=== PATIENT | female | born 1945 | race Two or more races ===

== ENCOUNTER 2020-06-20 10:44 | Emergency (ER) | payer MEDICARE, SELFPAY ==
[2020-06-20 11:20] VITALS: PULSE 87; RESP 14; TEMP 36.9; O2SAT 95; BMI 30.2
--- NOTE | 2020-06-20 12:23 | PC.NURSE ---
patient a&ox3, pt states she had neck and back pain yesterday, denies injury and denies current pain, she stated it was a burning pain when she had it and she took tylenol. patient neuro intact-and has equal/normal strength in bilateral upper and lower extremities, vss, will continue to monitor.
--- NOTE | 2020-06-20 12:46 | ED_ITS ---
HPI - General Adult General Chief complaint: Back Pain/Injury Stated complaint: upper back pain, URI Time Seen by Provider: 06/20/20 12:43 Source: patient Mode of arrival: ambulatory Limitations: no limitations History of Present Illness HPI narrative: pleasant 75-year-old primarily Citizen Of [place]-speaking female with hi story of diabetes, hypertension, hyperlipidemia, osteoarthritis, left breast CA status post lumpectomy presents ambulatory via triage with complaint of states for the past 2 days has had of mild rhinorrhea/ congestion in the sinuses and yesterday developed muscle ache in the upper back and mild cough. States her cough is not very bothersome only mild yesterday and today not much. No chest pain or shortness of breath. States muscle aches all over. No fever. She does report that her significant other at home with similar symptoms. No recent travel. additionally she does report that she has lost taste in her mouth for similar duration of time. Onset (ago): day(s) (3 days ) Location: back Severity: mild Pain Consistency: constant Associated symptoms: denies other symptoms Treatments prior to arrival: none Related Data Allergies Allergy/AdvReac Type Severity Reaction Status Date / Time penicillin G [Penicillin G] Allergy Mild RASH Verified 06/20/20 14:32 penicillin V Allergy Unknown rash, Verified 01/16/19 00:00 swelling Review of Systems Review of Systems: Constitutional: No Weight loss, No Fever, + Chills, No Night Sweats, No Fatigue, No Malaise, + Muscle aches in upper back ENT/Mouth: No Hearing loss, No Ear Pain, + Nasal Congestion, + Sinus Pain, No Hoarseness, No sore throat, + Rhinorrhea, No Swallowing Difficulty Eyes: No Eye Pain, No Swelling, No Redness, No Foreign Body, No Discharge, No Vision Changes Cardiovascular: No Chest Pain, No SOB, No Dyspnea on Exertion, No Orthopnea, No Edema, No Palpitations Respiratory: No Cough, No Sputum, No Wheezing, No Smoke Exposure, No Dyspnea Gastrointestinal: No Nausea, No Vomiting, No Diarrhea, No Constipation, No a bdominal Pain, No Hematochezia, No Melena Genitourinary: no irregular bleeding, No Dysuria, No Urinary Frequency, No Hematuria, No Urinary Incontinence, No Urgency, No Flank Pain, No Urinary Flow Changes, No Hesitancy Musculoskeletal: No joint pain, No Myalgias, No Joint Swelling Skin: No Skin Lesions, No rash Neuro: No Weakness, No Numbness, No Paresthesias, No Loss of Consciousness, No Dizziness, No Headache Psych: No Anxiety/Panic, No Depression, No SI/HI/AH/VH, No Social Issues Heme/Lymph: No Bruising, No Bleeding,No Lymphadenopathy Endocrine: No Polyuria, No Polydipsia, No Temperature Intolerance Yes all other systems are reviewed and are negative [facility] Past Medical History Attestation statement: The following information was validated with the patient. Social History Social History Alcohol intake: never Smoking Status: Never smoker Use of substances other than those prescribed or required for medical reasons: No Advance Directives: No Advance Directives Information Provided: Yes Physical Exam Vital Signs: Vital Signs: Vital Signs Temp Pulse Resp BP Pulse Ox 06/20/20 15:17 103 H 18 06/20/20 14:34 98.9 F 92 18 117/60 94 06/20/20 11:20 98.4 F 87 14 95 Body Mass Index 30.2 Reviewed Const: General: cooperative and healthy appearing; No acute distress or i ntoxicated appearing Nutritional Appearance: average body habitus Orientation/consciousness: patient oriented x3 HENMT: Head: Yes normal to inspection Ears: hearing grossly normal bilaterally Eyes: General: appearance normal, both eyes and all related structures Visual Marquez: normal visual marquez by confrontation Neck: Neck: Yes normal visual inspection, No positive Brudzinski's sign, No positive Kernig's sign and No tender Thyroid: Thyroid normal Chest: Chest palpation & inspection: normal inspection of the chest Resp: Effort & Inspection: normal respiratory effort Cardio: Jugular venous distension: no JVD GI: Inspection: Yes normal to inspection Percussion: Yes normal to percussi on Auscultation: normal bowel sounds : General: Yes no CVA tenderness Back/Spine/Pelvis: Back: no CVA tenderness Skin: General skin exam: no rashes or lesions noted Neuro: General: patient oriented x3 Extrem: General: Yes normal to inspection Course Course Course Narrative: patient resting comfortably. In no acute distress. Hemodynamically stable. Heart rate in the 80s. Normal sinus rhythm no ectopy. Oxygen rate 96-97% ra. positive COVID, chest x-ray shows small ground-glass [place] subpleural right lateral base. Linear scar versus disc atelectasis santiago bpleural left lateral base. labs does not show any leukocytosis, and electrolytes essentially at baseline. Given dose of IV Decadron here. Findings /rhodes reviewed. Will discharge home, educated on home care will purchase a pulse oximeter of clear return instructions provided. She is ambulatory status with gait without shortness of breath. Will follow CDC guidelines. Patient stable for discharge. Medical Decision Making Lab Data Result diagrams: 06/20/20 13:41 06/20/20 13:44 Labs: Lab Results 06/20/20 06/20/20 06/20/20 Range/Units 13:22 13:22 13:22 WBC (4.8-10.8) X10*3/uL RBC (4.20-5.50) X10*6/uL Hgb (12.0-16.0) g/dl Hct (37-47) % MCV (80-98) fL MCH (27.0-33.0) pg MCHC (31.0-35.0) g/dl RDW (11.0-16.0) % Plt Count (160-400) X10*3/uL MPV (9.4-12.3) fL Immature Gran % (Auto) (0.0-0.4) % Neut % (Auto) (45-73) % Lymph % (Auto) (20-40) % [place] % (Auto) (2-11) % Eos % (Auto) (0-4) % Baso % (Auto) (0-2) % Lymph # (Auto) (1.2-4.9) X10*3/uL [place] # (Auto) (0.1-1.2) X10*3/uL Eos # (Auto) (0.0-0.4) X10*3/uL Baso # (Auto) (0.0-0.2) X10*3/uL Abs Immat Gran (auto) (0.00-0.03) X10*3/uL Absolute Neuts (auto) (2.0-8.3) X10*3/uL Absolute Nucleated RBC (0.0-0.012) X10*3/uL Nucleated RBC % (auto) (0.0-0.2) /100WBC Sodium (135-145) mmol/L Potassium (3.3-5.1) mmol/l Chloride (96-108) mmol/L Carbon Dioxide (22-29) mmol/L Anion Gap (12-20) BUN (9-16) mg/dL Creatinine (0.5-1.4) mg/dL Estim Creat Clear Calc Estimated GFR Random Glucose (60-115) mg/dL Calcium (8.4-10.2) mg/dL Total Bilirubin (0.0-1.0) mg/dL Direct Bilirubin (0.0-0.5) mg/dL AST (5-31) U/L ALT (0-31) U/L Alkaline Phosphatase (39-117) U/L Total Protein (6.5-8.0) g/dL Albumin (3.5-5.0) g/dL Urine Color YELLOW Urine Appearance CLEAR Urine pH 5.5 (5.0-8.0) Ur Specific [place] 1.015 (1.005-1.025) Urine Protein NEG (NEG-TRACE) MG/DL Urine Glucose (UA) >=1000 H (NEG) MG/DL Urine Ketones 15 (NEG) MG/DL Urine Blood NEG (NEG) Urine Nitrite NEG (NEG) Ur Leukocyte Esterase NEG (NEG) Urine RBC 0 (0) /HPF Urine WBC 0-2 (0-4) /HPF Ur Squamous Epith Cells 1+ /LPF Urine Bacteria NONE /LPF Coronavirus (PCR) POSITIVE A (Negative) Influenza Type A (PCR) NEGATIVE (Negative) Influenza Type B (PCR) NEGATIVE (Negative) Influenza A & B Note See Note RSV RNA Qual (PCR) NEGATIVE (Negative) 06/20/20 06/20/20 Range/Units 13:41 13:44 WBC 6.1 (4.8-10.8) X10*3/uL RBC 4.84 (4.20-5.50) X10*6/uL Hgb 13.5 (12.0-16.0) g/dl Hct 40.9 (37-47) % MCV 84.5 (80-98) fL MCH 27.9 (27.0-33.0) pg MCHC 33.0 (31.0-35.0) g/dl RDW 13.5 (11.0-16.0) % Plt Count 158 L (160-400) X10*3/uL MPV 12.0 (9.4-12.3) fL Immature Gran % (Auto) 0.3 (0.0-0.4) % Neut % (Auto) 56.4 (45-73) % Lymph % (Auto) 35.5 (20-40) % [place] % (Auto) 7.4 (2-11) % Eos % (Auto) 0.2 (0-4) % Baso % (Auto) 0.2 (0-2) % Lymph # (Auto) 2.2 (1.2-4.9) X10*3/uL [place] # (Auto) 0.5 (0.1-1.2) X10*3/uL Eos # (Auto) 0.0 (0.0-0.4) X10*3/uL Baso # (Auto) 0.0 (0.0-0.2) X10*3/uL Abs Immat Gran (auto) 0.02 (0.00-0.03) X10*3/uL Absolute Neuts (auto) 3.5 (2.0-8.3) X10*3/uL Absolute Nucleated RBC 0.000 (0.0-0.012) X10*3/uL Nucleated RBC % (auto) 0.0 (0.0-0.2) /100WBC Sodium 139 (135-145) mmol/L Potassium 3.3 (3.3-5.1) mmol/l Chloride 96 (96-108) mmol/L Carbon Dioxide 25 (22-29) mmol/L Anion Gap 21 H (12-20) BUN 17 H (9-16) mg/dL Creatinine 0.67 (0.5-1.4) mg/dL Estim Creat Clear Calc 40.9 Estimated GFR > 60 Random Glucose 133 H (60-115) mg/dL Calcium 9.8 (8.4-10.2) mg/dL Total Bilirubin 0.5 (0.0-1.0) mg/dL Direct Bilirubin 0.2 (0.0-0.5) mg/dL AST 150 H (5-31) U/L ALT 141 H (0-31) U/L Alkaline Phosphatase 44 (39-117) U/L Total Protein 7.7 (6.5-8.0) g/dL Albumin 4.1 (3.5-5.0) g/dL Urine Color Urine Appearance Urine pH (5.0-8.0) Ur Specific [place] (1.005-1.025) Urine Protein (NEG-TRACE) MG/DL Urine Glucose (UA) (NEG) MG/DL Urine Ketones (NEG) MG/DL Urine Blood (NEG) Urine Nitrite (NEG) Ur Leukocyte Esterase (NEG) Urine RBC (0) /HPF Urine WBC (0-4) /HPF Ur Squamous Epith Cells /LPF Urine Bacteria /LPF Coronavirus (PCR) (Negative) Influenza Type A (PCR) (Negative) Influenza Type B (PCR) (Negative) Influenza A & B Note RSV RNA Qual (PCR) (Negative) Imaging Data Chest x-ray: Radiologist's impression: Gosia Collier 75 F 1945 [place] [id number] XRay Report Signed Patient: Gosia CollierMR#: [id number] : [id number]:[id number] Age/Sex: 75 / FADM Date: 06/20/20 Loc: .ED Attending Dr: Ordering Physician: Herbert Amaya NP Date of Service: 06/20/20 Procedure(s): XR chest 1V Accession Number(s): [id number] cc: Herbert Amaya NP~ EXAMINATION: XR CHEST CLINICAL INFORMATION: Weakness COMPARISON: Chest radiographs 10/13/2017, 12/05/2012 TECHNIQUE: Portable upright AP view of the chest was obtained. FINDINGS: There is subtle groundglass opacity right lateral base. There is linear scar versus disc atelectasis subpleural left lateral base. The lungs are otherwise clear. There is no lobar or segmental airspace consolidation or effusion. The heart is normal within normal size. The hilar and mediastinal contours and bony structures are unremarkable. There is loss of height midthoracic vertebral body similar to prior study 2018. IMPRESSION: 1. Small groundglass opacity subpleural right lateral base. 2. Linear scar versus disc atelectasis subpleural left lateral base. Dictated By:MICHEL GORDON MD Signed By:<Electronically signed by MICHEL GORDON MD in OV>06/20/20 1332 DD/ 1245 TD/TT: Mechanical Fitter: MARIE Discharge Plan Discharge Clinical Impression: COVID-19 Patient Disposition: Home, Self-Care Instructions: COVID-19 (Coronavirus Disease 2019) (ED) Additional Instructions: Your chest x-ray showed findings consistent with COVID-19 and her COVID-19 test was positive Your blood work otherwise was okay You were given a dose of IV steroids here Your vital signs are otherwise stable Please return to emergency room if any concerns or worsening symptoms including chest pain, shortness of breath, fever or any concerning symptoms. monitor oxygen level on a home pulse oximeter Follow the CDC guidelines of self-isolation and social distancing Fourteen days. Wear mask Drink plenty of fluids Schedule a PHONE VISIT follow-up with her primary care doctor in the next 3 to 4 days. Thank you
[2020-06-20 13:37] LABS: Glucose Urine UA >=1000 MG/DL (NEG); Leukocyte Esterase Urine NEG (NEG); Nitrite Urine NEG (NEG); PH 5.5 (5.0-8.0); Specific Gravity - Urine 1.015 (1.005-1.025); Urine Blood NEG (NEG); Urine Ketones 15 MG/DL (NEG); Urine Protein NEG (NEG-TRACE)
[2020-06-20 13:42] LABS: Appearance Urine CLEAR; Color Urine YELLOW
[2020-06-20 13:46] LABS: MANUAL DIFF FLAG NO
--- NOTE | 2020-06-20 13:47 | PC.NURSE ---
patient a&ox3, pt ambulated independently to bathroom, urine obtained, flu/covid obtained, iv inserted, labs drawn, cxr performed, will continue to monitor.
[2020-06-20 13:50] LABS: RBC Urine 0 /HPF (0); Squamous Epithelial Cell Urine 1+ /LPF; WBC Urine 0-2 /HPF (0-4)
[2020-06-20 13:53] LABS: Basophils Percent Auto 0.2 % (0-2); Eosinophils Percent Auto 0.2 % (0-4); Hematocrit 40.9 % (37-47); Hemoglobin 13.5 g/dl (12.0-16.0); Imm Gran Abs Auto 0.02 X10*3/uL (0.00-0.03); Imm Gran Pct Auto 0.3 % (0.0-0.4); Lymphocytes Absolute Auto 2.2 X10*3/uL (1.2-4.9); Lymphocytes Percent Auto 35.5 % (20-40); Mean Corpuscular Hemoglobin 27.9 pg (27.0-33.0); Mean Corpuscular Volume 84.5 fL (80-98); Monocytes Absolute Auto 0.5 X10*3/uL (0.1-1.2); Monocytes Percent Auto 7.4 % (2-11); Neutrophils Absolute Auto 3.5 X10*3/uL (2.0-8.3); Neutrophils Percent Auto 56.4 % (45-73); Platelet Count 158 X10*3/uL (160-400); Red Blood Count 4.84 X10*6/uL (4.20-5.50); Red Cell Distribution Width 13.5 % (11.0-16.0); White Blood Count 6.1 X10*3/uL (4.8-10.8)
[2020-06-20 14:12] LABS: Alanine Aminotransferase 141 U/L (0-31); Albumin Level 4.1 g/dL (3.5-5.0); Alkaline Phosphatase 44 U/L (39-117); Anion Gap 21 (12-20); Aspartate Amino Transferase 150 U/L (5-31); Bilirubin Direct 0.2 mg/dL (0.0-0.5); Bilirubin Total 0.5 mg/dL (0.0-1.0); Blood Urea Nitrogen 17 mg/dL (9-16); Calcium 9.8 mg/dL (8.4-10.2); Carbon Dioxide 25 mmol/L (22-29); Chloride 96 mmol/L (96-108); Creatinine Clr Calc Pharmacy 40.9; Estimated Glomerular Filt Rate > 60; Glucose Random 133 mg/dL (60-115); Potassium 3.3 mmol/l (3.3-5.1); Sodium 139 mmol/L (135-145); Total Protein 7.7 g/dL (6.5-8.0)
[2020-06-20 14:34] VITALS: BP 117/60; PULSE 92; RESP 18; TEMP 37.2; O2SAT 94
[2020-06-20 14:51] LABS: SARS COV2 PCR INHOUSE POSITIVE (Negative)
[2020-06-20 15:01] LABS: Influenza A PCR NEGATIVE (Negative); Influenza B PCR NEGATIVE (Negative)
[2020-06-20 15:02] LABS: Resp Syncy Virus RNA Qual PCR NEGATIVE (Negative)
[2020-06-20] MEDS: dexAMETHasone sod phosphate 4 MG/ML VIAL IVPUSH (15:08)
[2020-06-20 15:17] VITALS: PULSE 103; RESP 18
--- NOTE | 2020-06-20 15:18 | PC.NURSE ---
patient ambulated per providers request, pts o2 sat decreased to 91%, no sob noted while ambulating, hr increased to 103, pt currently back in bed hr has reduced to 94 and o2 sat increased to 93%.
--- NOTE | 2020-06-20 16:31 | PC.NURSE ---
called for model dresser to discharge patient, he will come to ed when he is done on imc
== END 2020-06-20 16:50 | disposition home or self-care (01) ==
PROVIDERS: Nurse Practitioner Primary Care; Emergency Provider Emergency Medicine; PCP Internal Medicine Geriatric Medicine
DX: U07.1 COVID-19 (principal); I10 Essential (primary) hypertension; E11.9 Type 2 diabetes mellitus without complications; Z79.899 Other long term (current) drug therapy
CPT/HCPCS: 36415; 71045; 80048; 80076; 81001; 85025; 87631; 87635; 96374; 99284; J1100

== ENCOUNTER → 2020-11-10 14:46 | Outpatient (BNV) | payer MEDICARE, SELFPAY | PROVIDERS: PCP Internal Medicine Geriatric Medicine; Visit Provider Internal Medicine | DX: C50.912 Malignant neoplasm of unspecified site of left female breast (principal) | CPT/HCPCS: 99213; 99214; G2211 ==

== ENCOUNTER 2020-12-23 08:15 | Outpatient (REF) | payer MEDICARE, SELFPAY ==
[2020-12-23 08:48] LABS: COVID-19 Test Negative (Negative)
== END 2020-12-23 08:16 | disposition home or self-care (01) ==
LOC: HO.LAB 08:15
PROVIDERS: Visit Provider Internal Medicine
DX: Z20.822 Contact with and (suspected) exposure to COVID-19 (principal)
CPT/HCPCS: 36415; 87635; C9803

== ENCOUNTER 2021-04-21 09:54 | Outpatient (REF) | payer MEDICARE, SELFPAY ==
--- NOTE | ~2021-04-21 | MM_ITS ---
EXAMINATION: MM SCREENING DIGITAL BREAST TOMOSYNTHESIS, BILATERAL CLINICAL INFORMATION: Screening. Asymptomatic. Left lumpectomy for breast cancer 2006, left lumpectomy for DCIS 2016. COMPARISON: Mammography: 04/15/2020, 06/04/2019, 06/01/2018, 05/30/2017 TECHNIQUE: Digital breast tomosynthesis is performed in both the craniocaudal and mediolateral oblique views along with computer-aided detection (CAD). Synthesized 2D images are generated from the tomosynthesis. Additional exaggerated left CC view is provided. FINDINGS: There are scattered areas of fibroglandular density (ACR BI-RADS breast composition Category b). Left breast post therapy changes with reduced breast size and scarring central breast in the anterior upper outer quadrant are stable. Neither breast shows interval mass or architectural abnormality or abnormal calcifications. Again, there is biopsy clip marker mid medial right breast. Scattered bilateral vascular and benign coarse calcifications again seen. There is a group of coarse calcifications anterior medial left breast and dystrophic benign calcification in the anterior left scar. No significant changes. MM/MM tomosynthesis screening BI IMPRESSION: No mammographic evidence of malignancy. Post therapy changes left breast. ASSESSMENT: BI-RADS 2: Benign RECOMMENDATION: Routine annual mammography screening. This patient's information was entered into a reminder system with a target due date for their next mammogram.
== END 2021-04-21 09:55 | disposition home or self-care (01) ==
LOC: HO.MAMMO 09:54
PROVIDERS: Visit Provider Internal Medicine
DX: Z12.31 Encounter for screening mammogram for malignant neoplasm of breast (principal)
CPT/HCPCS: 77063; 77067

== ENCOUNTER 2021-05-11 10:11 | Emergency (ER) | payer MEDICARE, SELFPAY ==
--- NOTE | ~2021-05-11 | XR_ITS ---
EXAMINATION: XR CHEST CLINICAL INFORMATION: Cough COMPARISON: Previous chest x-ray June 2020 TECHNIQUE: Frontal view of the chest was obtained. FINDINGS: No significant abnormality is noted involving the heart, lungs, mediastinum, bony thorax or soft tissues. XR/XR chest 1V IMPRESSION: Unremarkable examination.
[2021-05-11 11:20] VITALS: BP 196/90; PULSE 88; RESP 20; TEMP 36.7; O2SAT 98; BMI 29.1
[2021-05-11 12:15] VITALS: BP 195/101; PULSE 79; RESP 18; O2SAT 97
--- NOTE | 2021-05-11 13:01 | ED_ITS ---
HPI - General Adult General Chief complaint: General Medical Stated complaint: SORE THROAT Time Seen by Provider: 05/11/21 12:13 Source: patient Mode of arrival: ambulatory History of Present Illness HPI narrative: 76-year-old female with a past medical history of diabetes, hypertension, osteoporosis, presenting to the ED complaining dry cough since yesterday with 1 hour of lightheadedness yesterday, resolved at present. Denies fever, chills, CP, SOB, abdominal pain, nausea, vomiting, recent travel, LE edema, sick contacts Related Data Home Medications Medication Instructions Recorded Confirmed acetaminophen 500 mg tablet 500 mg PO 10/07/20 albuterol sulfate 3 INHALATION Q4-6H PRN 10/07/20 alendronate 70 mg tablet 70 mg PO QWEEK 10/07/20 10/07/20 calcium carbonate 600 mg (1,500 1 tab PO BID 10/07/20 10/07/20 mg)-vitamin D3 400 unit tablet fluticasone 100 mcg-salmeterol 50 INHALATION 10/07/20 mcg/dose blistr powdr for inhalation (Advair Diskus) glipizide 2.5 mg tablet, extended 2.5 mg PO DAILY 10/07/20 10/07/20 release 24 hr hydrochlorothiazide 25 mg tablet 25 mg PO DAILY 10/07/20 10/07/20 loratadine 10 mg tablet 10 mg PO DAILY 10/07/20 10/07/20 losartan 25 mg tablet 25 mg PO QAM 10/07/20 10/07/20 metformin 750 mg tablet,extended 750 mg PO BID 10/07/20 10/07/20 release 24 hr omeprazole 20 mg capsule,delayed 20 mg PO DAILY 10/07/20 10/07/20 release simvastatin 10 mg tablet 10 mg PO 10/07/20 Previous Rx's Medication Instructions Recorded letrozole 2.5 mg tablet 2.5 mg PO DAILY #30 tab 04/08/21 benzonatate 100 mg capsule 100 mg PO TID PRN #14 cap 05/11/21 (Debby Prather) fluticasone propionate 50 2 spray INTRANASAL DAILY #16 g 05/11/21 mcg/actuation nasal spray,suspension (Flonase Allergy Relief) Allergies Allergy/AdvReac Type Severity Reaction Status Date / Time penicillin G [Penicillin G] Allergy Mild RASH Verified 06/20/20 14:32 penicillin V Allergy Unknown rash, Verified 01/16/19 00:00 swelling Review of Systems Review of Systems: Constitutional: No Fever, No Chills ENT/Mouth: No Ear Pain, No sore throat, No Rhinorrhea Cardiovascular: No Chest Pain, No SOB, No LE edema Respiratory: + Cough, No Sputum, No Wheezing Gastrointestinal: No Nausea, No Vomiting, No Abdominal pain Musculoskeletal: No joint pain, No Myalgias, No Joint Swelling Skin: No Skin Lesions, No rash Neuro: No Weakness, No Numbness, No Paresthesias, + lightheadedness Yes all other systems are reviewed and are negative [facility] Past Medical History Attestation statement: The following information was validated with the patient. Medical History (Updated 05/11/21 @ 15:14 by FABIANA Gil) Cancer of left breast Diabetes History of blood clot in brain Hypertension Osteoporosis Surgical History (Updated 11/10/20 @ 15:14 by Diane Beckett MD) History of right breast biopsy History of tubal ligation Family History Family History (Updated 10/07/20 @ 08:57 by Stephanie Hurt RN) Mother Coronary artery disease Father Throat cancer Social History Social History (Updated 11/10/20 @ 15:04 by Jenny Yang) Alcohol intake: never Advance Directives: No Advance Directives Information Provided: No Physical Exam Vital Signs: Vital Signs: Last Vital Signs Temp 98.0 F 05/11/21 11:20 Pulse 79 05/11/21 12:15 Resp 18 05/11/21 12:15 BP 197/92 H 05/11/21 15:26 Pulse Ox 97 05/11/21 12:15 Body Mass Index 29.1 Const: General: cooperative and healthy appearing Orientatio n/consciousness: patient oriented x3 Limitations: no limitations HENMT: Head: Yes normal to inspection Ears: hearing grossly normal bilaterally General nose exam: Normal external nose present Face and sinus: Yes normal facial exam Eyes: General: appearance normal, both eyes and all related structures EOM: EOMs intact bilaterally Neck: Neck: Yes normal visual inspection Resp: Effort & Inspection: normal respiratory effort Auscultation: clear to auscultation bilaterally, no rales, no rhonchi and no wheezes Cardio: Rate: regular rate Heart sounds: S1 normal heart sound present and S2 normal heart sound present Skin: Rashes: no rashes Wounds: no wounds Neuro: General: patient oriented x3 Gait exam (Neuro): Normal gait present Extrem: General: Yes normal to inspection, Yes no pedal edema and Yes no calf tenderness Course Course Course Narrative: -COVID-19/influenza/RSV negative. XR chest 1V IMPRESSION: Unremarkable examination. >> results discussed with patient with interpreter translator including worrisome signs and symptoms and strict return precautions. Medical Decision Making MDM Narrative Medical decision making narrative: 76-year-old female with a past medical history of diabetes, hypertension, osteoporosis, presenting to the ED complaining dry cough since yesterday with 1 hour of lightheadedness yesterday, resolved at present. On exam hypertensive, will repeat, NAD/nontoxic, no pedal edema/calf ttp. Patient denies lightheadedness at present. Concern for viral syndrome/COVID-19. No concern for PE/ACS Plan: CXR, COVID-19 testing Lab Data Labs: Lab Results 05/11/21 Range/Units 12:56 Coronavirus (PCR) NEGATIVE (Negative) Influenza Type A (PCR) NEGATIVE (Negative) Influenza Type B (PCR) NEGATIVE (Negative) RSV RNA Qual (PCR) NEGATIVE (Negative) Discharge Plan Discharge Clinical Impression: Acute viral syndrome Patient Disposition: Home, Self-Care Instructions: Viral Syndrome (ED) Additional Instructions: Your x-ray was unremarkable You tested negative for COVID-19, the flu, and RSV Please follow-up with your doctor Debby Prather for cough, take as needed Flonase is a nasal decongestant spray If her symptoms persist or worsen, you have constant worsening chest pain, shortness breath, fever, please return to the ED Tu radiograf?a no tuvo nada especial Result? negativo para COVID-19, gripe y RSV Michael un seguimiento con santiago m?dico. Tessalon Crescencio para la tos, susanna seg?n sea necesario Flonase es un aerosol descongestionante nasal Si valeria s?ntomas persisten o empeoran, tiene un dolor en el pecho que empeora constantemente, dificultad para respirar, fiebre, por favor regrese al servicio de urgencias. Prescriptions: New benzonatate [Tessalon Perles] 100 mg capsule 100 mg PO TID PRN (Reason: cough) Qty: 14 RF: 0 fluticasone propionate [Flonase Allergy Relief] 50 mcg/actuation spray,suspension 2 spray intranasal DAILY Qty: 16 RF: 0 No Action alendronate 70 mg tablet 70 mg PO QWEEK RF: 0 acetaminophen 500 mg tablet 500 mg PO RF: 0 fluticasone propion-salmeterol [Advair Diskus] 100-50 mcg/dose blister with device inhalation RF: 0 calcium carbonate-vitamin D3 600 mg(1,500mg) -400 unit tablet 1 tab PO BID RF: 0 losartan 25 mg tablet 25 mg PO QAM RF: 0 omeprazole 20 mg capsule,delayed release(DR/EC) 20 mg PO DAILY RF: 0 hydrochlorothiazide 25 mg tablet 25 mg PO DAILY RF: 0 loratadine 10 mg tablet 10 mg PO DAILY RF: 0 metformin 750 mg tablet extended release 24 hr 750 mg PO BID RF: 0 albuterol sulfate 2.5 mg /3 mL (0.083 %) solution for nebulization 3 inhalation Q4-6H PRN (Reason: Respiratory Distress) RF: 0 simvastatin 10 mg tablet 10 mg PO RF: 0 glipizide 2.5 mg tablet extended release 24hr 2.5 mg PO DAILY RF: 0 letrozole 2.5 mg Tablet 2.5 mg PO DAILY Qty: 30 RF: 3 Referrals: Tristin Fregoso MD [Primary Care Provider] - 2 days Print Language: Malawian
[2021-05-11 15:01] LABS: Influenza A PCR NEGATIVE (Negative); Influenza B PCR NEGATIVE (Negative); Resp Syncy Virus RNA Qual PCR NEGATIVE (Negative); SARS COV2 PCR INHOUSE NEGATIVE (Negative)
[2021-05-11 15:26] VITALS: BP 197/92
== END 2021-05-11 15:31 | disposition home or self-care (01) ==
PROVIDERS: Physician Assistant; Emergency Provider Emergency Medicine; PCP Internal Medicine Geriatric Medicine
DX: B34.9 Viral infection, unspecified (principal); Z20.822 Contact with and (suspected) exposure to COVID-19; E11.9 Type 2 diabetes mellitus without complications; I10 Essential (primary) hypertension; Z79.899 Other long term (current) drug therapy; Z79.02 Long term (current) use of antithrombotics/antiplatelets
CPT/HCPCS: 0241U; 36415; 71045; 99283

== ENCOUNTER 2021-12-03 09:34 | Emergency (ER) | payer MEDICARE, SELFPAY ==
--- NOTE | ~2021-12-03 | XR_ITS ---
EXAMINATION: XR RIBS, RIGHT CLINICAL INFORMATION: Right posterior rib pain COMPARISON: Chest x-ray 05/11/2021 TECHNIQUE: 3 views of the right ribs were obtained. FINDINGS: Lungs are clear. No consolidation, pneumothorax, or pleural effusion. The cardiomediastinal silhouette and pulmonary vasculature are normal. Osseous structures are unremarkable. Multiple views of right ribs reveal no visible fracture or bony abnormality. XR/XR ribs RT min 3V w CXR1V IMPRESSION: Unremarkable chest exam. Unremarkable right rib exam.
[2021-12-03 09:36] VITALS: BP 191/77; PULSE 80; RESP 18; TEMP 36.9; O2SAT 95
--- NOTE | 2021-12-03 09:40 | ECG_ITS ---
Test Reason : htn epigastric pain Blood Pressure : / mmHG Vent. Rate : 080 BPM Atrial Rate : 080 BPM P-R Int : 132 ms QRS Dur : 084 ms QT Int : 402 ms P-R-T Axes : 054 -12 055 degrees QTc Int : 463 ms Normal sinus rhythm Normal ECG When compared with ECG of 24-SEP-2015 14:59, No significant change was found Referred By: Generic ED Physician Electronically Signed By:AVELINO WOODS
[2021-12-03 09:51] VITALS: BP 192/85; PULSE 74; RESP 18; TEMP 36.7; O2SAT 98; BMI 34.4
--- NOTE | 2021-12-03 09:59 | ED.GENADULT ---
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 She reports the pain is sharp and 9/10 in severity. It radiates to the front of her abdomen at times and she gets nauseous. She denies any trauma to the area but reports falling all the time. No chest pain or SOB. She reports a history of similar pain in the past due to arthritis and osteoporosis. No history of rib fractures. She denies any vomiting, diarrhea, fever, chills. MD complaint: right sided back pain Onset (ago): week(s) (1) Location: back Radiation: abdomen Severity: severe Severity scale (1-10): 9 Quality: sharp Pain Consistency: intermittent Relieving factors: medication (ibuprofen and tylenol) Exacerbating factors: movement Associated symptoms: nausea/vomiting Treatments prior to arrival: none Related Data Home Medications Medication Instructions Recorded Confirmed acetaminophen 500 mg tablet 500 mg PO DAILY 10/07/20 09/14/21 albuterol sulfate 2.5 mg INHALATION Q4-6H PRN 10/07/20 09/14/21 alendronate 70 mg tablet 70 mg PO QWEEK 10/07/20 09/14/21 calcium carbonate 600 mg-vitamin 1 tab PO BID 10/07/20 09/14/21 D3 10 mcg (400 unit) tablet fluticasone 100 mcg-salmeterol 50 1 inh INHALATION DAILY 10/07/20 09/14/21 mcg/dose blistr powdr for inhalation (Advair Diskus) glipizide 2.5 mg tablet, extended 2.5 mg PO DAILY 10/07/20 09/14/21 release 24 hr loratadine 10 mg tablet 10 mg PO DAILY 10/07/20 09/14/21 losartan 25 mg tablet 25 mg PO QAM 10/07/20 09/14/21 metformin 750 mg tablet,extended 750 mg PO BID 10/07/20 09/14/21 release 24 hr omeprazole 20 mg capsule,delayed 20 mg PO DAILY 10/07/20 09/14/21 release simvastatin 10 mg tablet 10 mg PO DAILY 10/07/20 09/14/21 metoprolol succinate 100 mg 1 tab PO QAM 09/14/21 09/14/21 tablet,extended release 24 hr Previous Rx's Medication Instructions Recorded fluticasone propionate 50 2 spray INTRANASAL DAILY #16 g 05/11/21 mcg/actuation nasal spray,suspension (Flonase Allergy Relief) letrozole 2.5 mg tablet 2.5 mg PO DAILY #30 tab 08/13/21 Allergies Allergy/AdvReac Type Severity Reaction Status Date / Time penicillin G [Penicillin G] Allergy Mild RASH Verified 09/14/21 13:27 penicillin V Allergy Unknown rash, Verified 09/14/21 13:27 swelling Review of Systems Review of Systems: Constitutional: No Fever, No Chills ENT/Mouth: No sore throat, No Rhinorrhea, No Swallowing Difficulty Eyes: No Eye Pain, No Swelling, No Redness Cardiovascular: No Chest Pain, No SOB, No Orthopnea, No Edema Respiratory: No Cough, No Sputum, No Wheezing, No dyspnea Gastrointestinal: + Nausea, No Vomiting, No Diarrhea, No abdominal Pain, No Hematochezia, No Melena Genitourinary: No Dysuria, No Urinary Frequency, No Hematuria Musculoskeletal: No joint pain, No Myalgias, +Back pain Skin: No Skin Lesions, No rash Neuro: No Weakness, No Numbness, No Dizziness, No Headache Psych: No Anxiety/Panic, No Depression Heme/Lymph: No Bruising, No Lymphadenopathy Endocrine: No Polyuria, No Polydipsia PMFSH Past Medical History Medical History (Updated 12/03/21 @ 12:23 by FABIANA De Luna) Cancer of left breast Diabetes History of blood clot in brain Hypertension Osteoporosis Surgical History History of right breast biopsy History of tubal ligation Family History Family History Mother Coronary artery disease Father Throat cancer Social History Social History (Updated 09/14/21 @ 13:27 by Jenny Yang) Alcohol intake: never Patient Tobacco Use Status: Never used Tobacco Use of substances other than those prescribed or required for medical reasons: No Advance Directives: No Advance Directives Information Provided: Yes Current occupational status: disabled Current occupation: does not work. Current occupational exposures/hazards: No Physical Exam ED Vital Signs: Vital Signs - 24 hr 12/03/21 09:36 12/03/21 09:51 12/03/21 11:30 Temperature 98.4 F 98.0 F Pulse Rate 80 74 71 Respiratory Rate 18 18 16 Blood Pressure 191/77 H 192/85 H 176/66 H Pulse Oximetry 95 98 95 BMI result Body Mass Index 34.4 Appearance: Alert. Oriented X3. No acute distress. Eyes: Pupils equal, round and reactive to light. ENT: Pharynx normal. Neck: Normal inspection. Neck supple. CVS: Normal heart rate and rhythm. Pulses normal. Respiratory: No respiratory distress. Breath sounds normal. Abdomen: Soft and nontender. +BS x4 Back: normal inspection. Right thoracic area with moderate tenderness, +CVA tenderness. normal ROM. Skin: Skin warm and dry. Normal skin color. Normal skin turgor. No rashes. Extremities: No lower extremity edema. Neuro: Oriented X 3. No motor deficit. No sensory deficit. Course Course Course Narrative: 76 y/o female with history of DM, HTN, HLD, OP, OA, breast cancer 2006 presents to the ER with right sided back pain for the last one week, intermittent and worse with movement. No SOB or chest pain. Will check XR ribs given reports of multiple falls as well as EKG, and lab workup. Reevaluation(s) Reevaluation #1: EKG is normal without ischemic changes. Troponin is negative. She is feeling better after Tylenol and Lidoderm patch application. The rest of her lab workup is unremarkable. Her x-rays do not show any broken ribs are pneumonia. Pain is most likely musculoskeletal. Will discharge with recs for motrin, tylenol, OTC lidoderm and follow up with PCP. 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 Medical Decision Making Lab Data Result diagrams: 12/03/21 10:17 12/03/21 10:17 Labs: Lab Results 12/03/21 12/03/21 12/03/21 Range/Units 10:17 10:17 10:17 WBC 8.1 (4.8-10.8) X10*3/uL RBC 4.80 (4.20-5.50) X10*6/uL Hgb 13.7 (12.0-16.0) g/dl Hct 42.4 (37.0-47.0) % MCV 88.3 (80.0-98.0) fL MCH 28.5 (27.0-33.0) pg MCHC 32.3 (31.0-35.0) g/dl RDW 13.1 (11.0-16.0) % Plt Count 233 (160-400) X10*3/uL MPV 11.2 (9.4-12.3) fL Immature Gran % (Auto) 0.2 (0.0-0.4) % Neut % (Auto) 45.8 (45-73) % Lymph % (Auto) 42.7 H (20-40) % Kemper % (Auto) 7.4 (2-11) % Eos % (Auto) 3.3 (0-4) % Baso % (Auto) 0.6 (0-2) % Lymph # (Auto) 3.5 (1.2-4.9) X10*3/uL Kemper # (Auto) 0.6 (0.1-1.2) X10*3/uL Eos # (Auto) 0.3 (0.0-0.4) X10*3/uL Baso # (Auto) 0.1 (0.0-0.2) X10*3/uL Abs Immat Gran (auto) 0.02 (0.00-0.03) X10*3/uL Absolute Neuts (auto) 3.7 (2.0-8.3) x10*3/uL Absolute Nucleated RBC 0.000 (0.0-0.012) X10*3/uL Nucleated RBC % (auto) 0.0 (0.0-0.2) /100WBC Sodium 140 (135-145) mmol/L Potassium 4.3 (3.3-5.1) mmol/L Chloride 101 (96-108) mmol/L Carbon Dioxide 25 (22-29) mmol/L Anion Gap 18 (12-20) BUN 13 (9-16) mg/dL Creatinine 0.67 (0.5-1.4) mg/dL Estim Creat Clear Calc 35.8 Estimated GFR > 60 Random Glucose 197 H (60-115) mg/dL Calcium 10.2 (8.4-10.2) mg/dL Magnesium 2.4 (1.6-2.6) mg/dL Total Bilirubin 0.4 (0.0-1.0) mg/dL Direct Bilirubin 0.2 (0.0-0.5) mg/dL AST 22 (5-31) U/L ALT 29 (0-31) U/L Alkaline Phosphatase 62 (39-117) U/L Troponin I High Sens < 3.5 (<3.5-17.0) ng/L Total Protein 8.2 H (6.5-8.0) g/dL Albumin 4.5 (3.5-5.0) g/dL Urine Color Urine Appearance Urine pH (5.0-8.0) Ur Specific Coden (1.005-1.025) Urine Protein (NEG-TRACE) MG/DL Urine Glucose (UA) (NEG) MG/DL Urine Ketones (NEG) MG/DL Urine Blood (NEG) Urine Nitrite (NEG) Ur Leukocyte Esterase (NEG) Urine RBC (0) /HPF Urine WBC (0-4) /HPF Ur Squamous Epith Cells /LPF Urine Bacteria /LPF 12/03/21 Range/Units 10:17 WBC (4.8-10.8) X10*3/uL RBC (4.20-5.50) X10*6/uL Hgb (12.0-16.0) g/dl Hct (37.0-47.0) % MCV (80.0-98.0) fL MCH (27.0-33.0) pg MCHC (31.0-35.0) g/dl RDW (11.0-16.0) % Plt Count (160-400) X10*3/uL MPV (9.4-12.3) fL Immature Gran % (Auto) (0.0-0.4) % Neut % (Auto) (45-73) % Lymph % (Auto) (20-40) % Kemper % (Auto) (2-11) % Eos % (Auto) (0-4) % Baso % (Auto) (0-2) % Lymph # (Auto) (1.2-4.9) X10*3/uL Kemper # (Auto) (0.1-1.2) X10*3/uL Eos # (Auto) (0.0-0.4) X10*3/uL Baso # (Auto) (0.0-0.2) X10*3/uL Abs Immat Gran (auto) (0.00-0.03) X10*3/uL Absolute Neuts (auto) (2.0-8.3) x10*3/uL Absolute Nucleated RBC (0.0-0.012) X10*3/uL Nucleated RBC % (auto) (0.0-0.2) /100WBC Sodium (135-145) mmol/L Potassium (3.3-5.1) mmol/L Chloride (96-108) mmol/L Carbon Dioxide (22-29) mmol/L Anion Gap (12-20) BUN (9-16) mg/dL Creatinine (0.5-1.4) mg/dL Estim Creat Clear Calc Estimated GFR Random Glucose (60-115) mg/dL Calcium (8.4-10.2) mg/dL Magnesium (1.6-2.6) mg/dL Total Bilirubin (0.0-1.0) mg/dL Direct Bilirubin (0.0-0.5) mg/dL AST (5-31) U/L ALT (0-31) U/L Alkaline Phosphatase (39-117) U/L Troponin I High Sens (<3.5-17.0) ng/L Total Protein (6.5-8.0) g/dL Albumin (3.5-5.0) g/dL Urine Color YELLOW Urine Appearance CLEAR Urine pH 6.5 (5.0-8.0) Ur Specific Coden <= 1.005 (1.005-1.025) Urine Protein TRACE (NEG-TRACE) MG/DL Urine Glucose (UA) >=1000 H (NEG) MG/DL Urine Ketones NEG (NEG) MG/DL Urine Blood NEG (NEG) Urine Nitrite NEG (NEG) Ur Leukocyte Esterase NEG (NEG) Urine RBC 0 (0) /HPF Urine WBC 0 (0-4) /HPF Ur Squamous Epith Cells NONE /LPF Urine Bacteria NONE /LPF ECG Data Attestation: I personally reviewed and interpreted this ECG as follows: Prior ECG tracings: available for review Interpretation: normal sinus rhythm, heart rate 80 beats per minute, normal MT interval, normal QTC, no ST segment elevations or depressions. No change from prior. Discharge Plan Discharge Clinical Impression: Back pain Patient Disposition: Home, Self-Care Instructions: Back Pain (ED) Additional Instructions: Your lab workup today was unremarkable. Your EKG was normal. X-rays of your ribs and chest were normal. Pain is most likely muscular. No bending, lifting or twisting. Use ice several times per day for 20 minutes at a time for the next 48 hours and then change to heat. Take medications as prescribed to help with pain and discomfort. Follow up with your Primary Care Doctor this week. If your pain worsens, if you develop new concerning symptoms call 911 or come back to the ER right away for evaluation. Tu an?lisis de laboratorio de cadenkarine no tuvo nada especial. [place] electrocardiograma fue normal. Las radiograf?as de valeria costillas y t?rax fueron normales. Lo m?s probable es que el dolor sea muscular. Sin doblar, levantar o torcer. Use hielo varias veces al d?a mitali 20 minutos a la vez mitali las pr?ximas 48 horas y luego cambie a calor. [place] los medicamentos seg?n lo prescrito para ayudar con el dolor y la incomodidad. Michael un seguimiento con manzanares m?dico de atenci?n primaria esta semana. Si manzanares dolor empeora, si desarrolla nuevos s?ntomas preocupantes, llame al 911 o regrese a la néstor de emergencias de inmediato para francis evaluaci?n. Prescriptions: No Action fluticasone propionate [Flonase Allergy Relief] 50 mcg/actuation spray,suspension 2 spray intranasal DAILY Qty: 16 0RF Rx Instructions: administer into each nostril alendronate 70 mg tablet 70 mg PO QWEEK 0RF acetaminophen 500 mg tablet 500 mg PO DAILY 0RF fluticasone propion-salmeterol [Advair Diskus] 100-50 mcg/dose blister with device 1 inh inhalation DAILY 0RF calcium carbonate-vitamin D3 600 mg(1,500mg) -400 unit tablet 1 tab PO BID 0RF losartan 25 mg tablet 25 mg PO QAM 0RF omeprazole 20 mg capsule,delayed release(DR/EC) 20 mg PO DAILY 0RF loratadine 10 mg tablet 10 mg PO DAILY 0RF metformin 750 mg tablet extended release 24 hr 750 mg PO BID 0RF albuterol sulfate 2.5 mg /3 mL (0.083 %) solution for nebulization 2.5 mg inhalation Q4-6H PRN (Reason: Respiratory Distress) 0RF simvastatin 10 mg tablet 10 mg PO DAILY 0RF glipizide 2.5 mg tablet extended release 24hr 2.5 mg PO DAILY 0RF letrozole 2.5 mg Tablet 2.5 mg PO DAILY Qty: 30 3RF metoprolol succinate 100 mg tablet extended release 24 hr 1 tab PO QAM 0RF Referrals: Name,MD Tristin [Primary Care Provider] - 2 days (right sided back pain) Interventions: ED Discharge Assessment Last Done: 12/03/21 12:44 Discharge Date/Time: 12/03/21 12:45
[2021-12-03 10:22] LABS: MANUAL DIFF FLAG NO
[2021-12-03 10:24] LABS: Basophils Absolute Auto 0.1 X10*3/uL (0.0-0.2); Basophils Percent Auto 0.6 % (0-2); Eosinophils Absolute Auto 0.3 X10*3/uL (0.0-0.4); Eosinophils Percent Auto 3.3 % (0-4); Hematocrit 42.4 % (37.0-47.0); Hemoglobin 13.7 g/dl (12.0-16.0); Imm Gran Abs Auto 0.02 X10*3/uL (0.00-0.03); Imm Gran Pct Auto 0.2 % (0.0-0.4); Lymphocytes Absolute Auto 3.5 X10*3/uL (1.2-4.9); Lymphocytes Percent Auto 42.7 % (20-40); Mean Corpuscular HGB Conc 32.3 g/dl (31.0-35.0); Mean Corpuscular Hemoglobin 28.5 pg (27.0-33.0); Mean Corpuscular Volume 88.3 fL (80.0-98.0); Mean Platelet Volume 11.2 fL (9.4-12.3); Monocytes Absolute Auto 0.6 X10*3/uL (0.1-1.2); Monocytes Percent Auto 7.4 % (2-11); Neutrophils Absolute Auto 3.7 x10*3/uL (2.0-8.3); Neutrophils Percent Auto 45.8 % (45-73); Platelet Count 233 X10*3/uL (160-400); Red Cell Distribution Width 13.1 % (11.0-16.0); White Blood Count 8.1 X10*3/uL (4.8-10.8)
[2021-12-03 10:27] LABS: Appearance Urine CLEAR; Color Urine YELLOW; Glucose Urine UA >=1000 MG/DL (NEG); Leukocyte Esterase Urine NEG (NEG); Nitrite Urine NEG (NEG); PH 6.5 (5.0-8.0); Specific Gravity - Urine <= 1.005 (1.005-1.025); Urine Blood NEG (NEG); Urine Ketones NEG (NEG); Urine Protein TRACE MG/DL (NEG-TRACE)
[2021-12-03 10:49] LABS: Alanine Aminotransferase 29 U/L (0-31); Albumin Level 4.5 g/dL (3.5-5.0); Alkaline Phosphatase 62 U/L (39-117); Anion Gap 18 (12-20); Aspartate Amino Transferase 22 U/L (5-31); Bilirubin Direct 0.2 mg/dL (0.0-0.5); Bilirubin Total 0.4 mg/dL (0.0-1.0); Blood Urea Nitrogen 13 mg/dL (9-16); Calcium 10.2 mg/dL (8.4-10.2); Carbon Dioxide 25 mmol/L (22-29); Chloride 101 mmol/L (96-108); Creatinine Clr Calc Pharmacy 35.8; Estimated Glomerular Filt Rate > 60; Glucose Random 197 mg/dL (60-115); Magnesium 2.4 mg/dL (1.6-2.6); Potassium 4.3 mmol/L (3.3-5.1); Sodium 140 mmol/L (135-145); Total Protein 8.2 g/dL (6.5-8.0)
[2021-12-03] MEDS: Acetaminophen 325 MG TABLET 975 MG PO (10:49)
[2021-12-03] MEDS: Lidocaine 4 % Patch ADH..PATCH 1 PATCH TRANSDERMA (10:49)
[2021-12-03 10:53] LABS: Troponin-I High Sensitivity < 3.5 ng/L (<3.5-17.0)
[2021-12-03 11:11] LABS: RBC Urine 0 /HPF (0); WBC Urine 0 /HPF (0-4)
[2021-12-03 11:30] VITALS: BP 176/66; PULSE 71; RESP 16; O2SAT 95
--- NOTE | 2021-12-03 12:24 | PC.NURSE ---
pt resting peacefully in the stretcher, denies pain at this time
== END 2021-12-03 12:45 | disposition home or self-care (01) ==
PROVIDERS: Physician Assistant; Emergency Provider Emergency Medicine; PCP Internal Medicine Geriatric Medicine
DX: M54.6 Pain in thoracic spine (principal); E11.9 Type 2 diabetes mellitus without complications; I10 Essential (primary) hypertension; E78.5 Hyperlipidemia, unspecified; Z91.81 History of falling; Z79.02 Long term (current) use of antithrombotics/antiplatelets; Z79.899 Other long term (current) drug therapy
CPT/HCPCS: 36415; 71101; 80048; 80076; 81001; 83735; 84484; 85025; 93005; 99283; 99284

== ENCOUNTER 2022-04-22 10:21 | Outpatient (REF) | payer MEDICARE, SELFPAY ==
--- NOTE | ~2022-04-22 | MM_ITS ---
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 Due for yearly. COMPARISON: Mammography: 04/21/2021, 04/15/2020, 06/04/2019, 06/01/2018 TECHNIQUE: Digital breast tomosynthesis is performed in both the craniocaudal and mediolateral oblique views along with computer-aided detection (CAD). Synthesized 2D images are generated from the tomosynthesis. Additional left MLO view is provided. FINDINGS: There are scattered areas of fibroglandular density (ACR BI-RADS breast composition Category b). There are no significant changes from prior studies. Left breast has post therapy changes with reduced breast size and 2 areas of stable scarring central and anterior upper outer breast. There are scattered bilateral benign coarse and vascular calcifications. Right breast has biopsy clip marker mid 8: 3:30 o'clock position. Neither breast shows developing density or interval mass or architectural abnormality. No significant changes. MM/MM tomosynthesis screening BI IMPRESSION: No significant changes from prior exams. Post therapy changes left breast. ASSESSMENT: BI-RADS 2: Benign RECOMMENDATION: Routine annual mammography screening. This patient's information was entered into a reminder system with a target due date for their next mammogram.
== END 2022-04-22 10:22 | disposition home or self-care (01) ==
LOC: HO.MAMMO 10:21
PROVIDERS: Visit Provider Internal Medicine
DX: Z12.31 Encounter for screening mammogram for malignant neoplasm of breast (principal)
CPT/HCPCS: 77063; 77067

== ENCOUNTER 2022-07-11 15:15 | Emergency (ER) | payer MEDICARE, SELFPAY ==
[2022-07-11 16:02] VITALS: PULSE 93; RESP 18; TEMP 36.9; O2SAT 97; BMI 30.2
== END 2022-07-11 19:07 | disposition left against medical advice (07) ==
LOC: HO.ED 07-14 13:31
PROVIDERS: Emergency Provider Emergency Medicine
DX: R05.9 Cough, unspecified (principal)
CPT/HCPCS: 99281

== ENCOUNTER 2022-07-30 17:37 | Emergency (ER) | payer MEDICARE, SELFPAY ==
--- NOTE | 2022-07-30 | ECG_ITS ---
Test Reason : palpataions Blood Pressure : / mmHG Vent. Rate : 108 BPM Atrial Rate : 108 BPM P-R Int : 144 ms QRS Dur : 082 ms QT Int : 370 ms P-R-T Axes : 059 -06 069 degrees QTc Int : 495 ms Sinus tachycardia Otherwise normal ECG When compared with ECG of 03-DEC-2021 09:37, Heart rate has decreased Referred By: Generic ED Physician Electronically Signed By:SERGIO DUNHAM MD
[2022-07-30 17:47] VITALS: BP 193/100; PULSE 125; RESP 19; TEMP 36.4; O2SAT 99; BMI 37.8
[2022-07-30 20:00] VITALS: RESP 16
[2022-07-30 20:46] LABS: Basophils Absolute Auto 0.1 X10*3/uL (0.0-0.2); Basophils Percent Auto 0.7 % (0-2); Eosinophils Absolute Auto 0.2 X10*3/uL (0.0-0.4); Eosinophils Percent Auto 1.9 % (0-4); Hematocrit 43.3 % (37.0-47.0); Hemoglobin 14.6 g/dl (12.0-16.0); Imm Gran Abs Auto 0.02 X10*3/uL (0.00-0.03); Imm Gran Pct Auto 0.2 % (0.0-0.4); Lymphocytes Absolute Auto 3.1 X10*3/uL (1.2-4.9); Lymphocytes Percent Auto 32.5 % (20-40); MANUAL DIFF FLAG NO; Mean Corpuscular HGB Conc 33.7 g/dl (31.0-35.0); Mean Corpuscular Hemoglobin 29.1 pg (27.0-33.0); Mean Corpuscular Volume 86.3 fL (80.0-98.0); Mean Platelet Volume 11.6 fL (9.4-12.3); Monocytes Absolute Auto 0.7 X10*3/uL (0.1-1.2); Monocytes Percent Auto 7.5 % (2-11); Neutrophils Absolute Auto 5.4 x10*3/uL (2.0-8.3); Neutrophils Percent Auto 57.2 % (45-73); Platelet Count 212 X10*3/uL (160-400); Red Blood Count 5.02 X10*6/uL (4.20-5.50); Red Cell Distribution Width 13.8 % (11.0-16.0); White Blood Count 9.5 X10*3/uL (4.8-10.8)
[2022-07-30 21:03] LABS: Alanine Aminotransferase 21 U/L (0-31); Albumin Level 4.4 g/dL (3.5-5.0); Alkaline Phosphatase 76 U/L (39-117); Anion Gap 19 (12-20); Aspartate Amino Transferase 17 U/L (5-31); Bilirubin Total 0.4 mg/dL (0.0-1.0); Blood Urea Nitrogen 15 mg/dL (9-16); Calcium 9.5 mg/dL (8.4-10.2); Carbon Dioxide 22 mmol/L (22-29); Chloride 105 mmol/L (96-108); Creatinine Clr Calc Pharmacy 47.5; Estimated Glomerular Filt Rate > 60; Glucose Random 187 mg/dL (60-115); Potassium 3.8 mmol/L (3.3-5.1); Sodium 142 mmol/L (135-145); Total Protein 7.6 g/dL (6.5-8.0)
[2022-07-30 21:09] LABS: Troponin-I High Sensitivity 14.4 ng/L (<3.5-17.0)
--- NOTE | 2022-07-30 21:51 | ED_ITS ---
HPI - Arrhythmia/Palpitations General Chief Complaint: Arrhythmia/Palpitations Stated Complaint: PALPITATIONS Time Seen by Provider: 07/30/22 21:05 Source: patient, family, EMS and old records reviewed Mode of arrival: ambulatory Limitations: no limitations History of Present Illness HPI narrative: 77-year-old female with a past medical history of breast cancer and COVID-19 presents to the emergency department tonight with palpitations. The patient was noted to have an elevated heart rate at home by EMS when they were called for the patient having some chest pain approximately 1 hour prior to arrival. The p atient states she was sitting when her symptoms began, and she drinks some water which caused symptoms to disappear. The patient did not receive any medications prior to arrival, however upon arrival, her heart rate has normalized. Rhythm strip from EMS displays a tachycardia which appears to be atrial fibrillation at a rate of approximately 150 to 170. MD complaint: rapid heart beat and heart racing Onset (ago): hour(s) Duration: constant and now resolved Severity: severe Context: occurred during rest Associated symptoms: denies other symptoms Related Data Home Medications Medication Instructions Recorded Confirmed acetaminophen 500 mg tablet 500 mg PO DAILY 10/07/20 03/15/22 albuterol sulfate 2.5 mg/3 mL 2.5 mg inhalation Q4-6H PRN 10/07/20 03/15/22 (0.083 %) solution for nebulization Respiratory Distress alendronate 70 mg tablet 70 mg PO QWEEK 10/07/20 03/15/22 fluticasone 100 mcg-salmeterol 50 1 inh inhalation DAILY 10/07/20 03/15/22 mcg/dose blistr powdr for inhalation (Advair Diskus) glipizide 2.5 mg tablet, extended 2.5 mg PO DAILY 10/07/20 03/15/22 release 24 hr loratadine 10 mg tablet 10 mg PO DAILY 10/07/20 03/15/22 losartan 25 mg tablet 25 mg PO QAM 10/07/20 03/15/22 metformin 750 mg tablet,extended 750 mg PO BID 10/07/20 03/15/22 release 24 hr omeprazole 20 mg capsule,delayed 20 mg PO DAILY 10/07/20 03/15/22 release simvastatin 10 mg tablet 10 mg PO DAILY 10/07/20 03/15/22 metoprolol succinate 100 mg 1 tab PO QAM 09/14/21 03/15/22 tablet,extended release 24 hr blood pressure test kit-large 03/15/22 03/15/22 clindamycin HCl 150 mg capsule 1 cap PO Q8H 03/15/22 03/15/22 Previous Rx's Medication Instructions Recorded fluticasone propionate 50 2 spray intranasal DAILY #16 grams 05/11/21 mcg/actuation nasal spray,suspension (Flonase Allergy Relief) letrozole 2.5 mg tablet 2.5 mg PO DAILY #30 tabs 06/02/22 Allergies Allergy/AdvReac Type Severity Reaction Status Date / Time penicillin G [Penicillin G] Allergy Mild RASH Unverified 07/11/22 16:02 penicillin V Allergy Unknown rash, Unverified 09/14/21 13:27 swelling Review of Systems Constitutional: Constitutional: Denies chills, Denies fever(s) and Denies weakness Eyes: Eyes: Denies diplopia and Denies eye discharge ENT: Denies vertigo, Denies dizziness, Denies nasal congestion and Denies sore throat Cardiovascular: Cardiovascular: Reports chest pain, Denies syncope, Reports rapid heart rate, Denies Loss of Consciousness, Denies palpitations and Denies dyspnea Respiratory: Respiratory: Reports no additional respiratory complaints, Denies cough and Denies dyspnea Gastrointestinal: Gastrointestinal: Reports no additional gastrointestinal complaints, Denies abdominal pain, Denies constipation, Denies nausea and Denies vomiting Genitourinary: Genitourinary: Reports no additional female genitourinary complaints Musculoskeletal: Musculoskeletal: Reports no additional musculoskeletal complaints Integumentary/Breasts: Skin/Breast: Denies erythema and Denies jaundice Neurologic: Denies Abnormal speech present, Denies vertigo, Denies dizziness, Denies syncope, Denies Sensory deficit (Neuro) and Denies weakness Endocrine: Endocrine: Denies palpitations PMFSH Past Medical History Attestation statement: The following information was validated with the patient. Source: old records reviewed, obtained from family and nursing notes reviewed Medical History Cancer of left breast Diabetes History of blood clot in brain Hypertension Osteoporosis Surgical History History of right breast biopsy History of tubal ligation Family History Family History Mother Coronary artery disease Father Throat cancer Social History Social History Household Members: Friend(s) Housing: Apartment Alcohol intake: never Patient Tobacco Use Status: Never used Tobacco Advance Directives: No Advance Directives Information Provided: No service: No Current occupational status: disabled Current occupation: does not work. Current occupational exposures/hazards: No Physical Exam Vital Signs: Vital Signs: Last Vital Signs Temp 97.5 F 07/30/22 17:47 Pulse 84 07/30/22 22:49 Resp 20 07/30/22 22:49 BP 139/74 07/30/22 22:49 Pulse Ox 97 07/30/22 22:49 O2 Del Method 07/30/22 22:49 BMI result Body Mass Index 37.8 Mild tachycardia at 125., along with elevated blood pressure Const: General: cooperative, comfortable, no acute distress, alert and awake; No diaphoretic Orientation/consciousness: patient oriented x3 Limitations: no limitations HEENT: Head: Yes normal to inspection, Yes normocephalic and Yes atraumatic Ears: hearing grossly normal bilaterally and external ears normal General nose exam: Normal external nose present Face and sinus: Yes normal facial exam Mouth: Normal oral and palatal mucosa present Eyes: General: appearance normal, both eyes and all related structures Conjunctivae: conjunctivae normal Sclerae: sclerae normal Pupils: Equal, round and reactive pupils present EOM: EOMs intact bilaterally Neck: Neck: Yes normal visual inspection and Yes full ROM Resp: Effort & Inspection: normal respiratory effort, normal respiratory pattern and no cough Cardio: Rate: regular rate Rhythm: regular rhythm GI: Inspection: Yes normal to inspection, No Abdominal wall edema and No distended Palpation (GI): not soft and nontender Back/Spine/Pelvis: Cervical Spine: normal cervical lordosis and cervical ROM normal Skin: General skin exam: no rashes or lesions noted, no jaundice and no pallor Neuro: General: patient oriented x3 and CN's II-XI intact bilaterally Cranial nerves: Yes Equal, round and reactive pupils present Cognition (Neuro): normal cognition Speech: No Abnormal speech present Motor exam (neuro): 5/5 motor strength present throughout Sensory Exam: No Sensory deficit (Neuro) Deep tendon reflexes (DTR's): Rt Biceps (C5, C6): 2+, Left biceps reflex intensity grade: 2+, Right patellar reflex intensity grade: 2+ and Left patellar reflex intensity grade: 2+ MDM - Arrhythmia/Palpitations MDM Narrative Medical decision making narrative: 77-year-old female who presented to the emergency department tonight after calling 911 for palpitations. The patient states the palpitations resolved on their own at home, however a strip from the EMS shows a atrial fibrillation with rapid ventricular response. The patient's heart rate and rhythm on arrival here to the emergency room were normal, the patient was observed for several hours without recurrence of atrial fibrillation. Laboratory studies as documented below. No acute concern for recurrence, however, the patient is advised to f ollow-up with her primary care doctor on Tuesday and return if any recurrence. Differential Diagnosis Differential diagnosis: Likely palpitations and artial fibrillation Medical Records Attestation: I reviewed the patient's medical records. Lab Data Attestation: I reviewed the patient's lab results. Result diagrams: 07/30/22 20:40 07/30/22 20:40 Labs: Lab Results 07/30/22 07/30/22 07/30/22 Range/Units 20:40 20:40 20:40 WBC 9.5 (4.8-10.8) X10*3/uL RBC 5.02 (4.20-5.50) X10*6/uL Hgb 14.6 (12.0-16.0) g/dl Hct 43.3 (37.0-47.0) % MCV 86.3 (80.0-98.0) fL MCH 29.1 (27.0-33.0) pg MCHC 33.7 (31.0-35.0) g/dl RDW 13.8 (11.0-16.0) % Plt Count 212 (160-400) X10*3/uL MPV 11.6 (9.4-12.3) fL Immature Gran % (Auto) 0.2 (0.0-0.4) % Neut % (Auto) 57.2 (45-73) % Lymph % (Auto) 32.5 (20-40) % Haralson % (Auto) 7.5 (2-11) % Eos % (Auto) 1.9 (0-4) % Baso % (Auto) 0.7 (0-2) % Lymph # (Auto) 3.1 (1.2-4.9) X10*3/uL Haralson # (Auto) 0.7 (0.1-1.2) X10*3/uL Eos # (Auto) 0.2 (0.0-0.4) X10*3/uL Baso # (Auto) 0.1 (0.0-0.2) X10*3/uL Abs Immat Gran (auto) 0.02 (0.00-0.03) X10*3/uL Absolute Neuts (auto) 5.4 (2.0-8.3) x10*3/uL Absolute Nucleated RBC 0.000 (0.0-0.012) X10*3/uL Nucleated RBC % (auto) 0.0 (0.0-0.2) /100WBC Sodium 142 (135-145) mmol/L Potassium 3.8 (3.3-5.1) mmol/L Chloride 105 (96-108) mmol/L Carbon Dioxide 22 (22-29) mmol/L Anion Gap 19 (12-20) BUN 15 (9-16) mg/dL Creatinine 0.64 (0.5-1.4) mg/dL Estim Creat Clear Calc 47.5 Estimated GFR > 60 Random Glucose 187 H (60-115) mg/dL Calcium 9.5 (8.4-10.2) mg/dL Total Bilirubin 0.4 (0.0-1.0) mg/dL AST 17 (5-31) U/L ALT 21 (0-31) U/L Alkaline Phosphatase 76 (39-117) U/L Troponin I High Sens 14.4 D (<3.5-17.0) ng/L Total Protein 7.6 (6.5-8.0) g/dL Albumin 4.4 (3.5-5.0) g/dL ECG Data Interpretation: Sinus tachycardia 108. Normal axis, normal intervals. When compared to an old EKG, there has been no significant interval change. Discharge Plan Discharge Clinical Impression: Palpitations, Atrial fibrillation Patient Disposition: Home, Self-Care Instructions: A-fib (Atrial Fibrillation) (ED) Additional Instructions: It is important that you call your doctor on Tuesday for follow-up. You should have a follow-up paid internship appointment, as well as additional testing that should be done as an outpatient including an echocardiogram. Prescriptions: No Action fluticasone propionate [Flonase Allergy Relief] 50 mcg/actuation spray,suspension 2 spray intranasal DAILY Qty: 16 0RF Rx Instructions: administer into each nostril alendronate 70 mg tablet 70 mg PO QWEEK acetaminophen 500 mg tablet 500 mg PO DAILY fluticasone propion-salmeterol [Advair Diskus] 100-50 mcg/dose blister with device 1 inh inhalation DAILY losartan 25 mg tablet 25 mg PO QAM omeprazole 20 mg capsule,delayed release(DR/EC) 20 mg PO DAILY loratadine 10 mg tablet 10 mg PO DAILY metformin 750 mg tablet extended release 24 hr 750 mg PO BID albuterol sulfate 2.5 mg /3 mL (0.083 %) solution for nebulization 2.5 mg inhalation Q4-6H PRN (Reason: Respiratory Distress) simvastatin 10 mg tablet 10 mg PO DAILY glipizide 2.5 mg tablet extended release 24hr 2.5 mg PO DAILY metoprolol succinate 100 mg tablet extended release 24 hr 1 tab PO QAM clindamycin HCl 150 mg capsule 1 cap PO Q8H (DME) blood pressure test kit-large Kit MISCELLANEOUS DAILY letrozole 2.5 mg Tablet 2.5 mg PO DAILY Qty: 30 3RF Referrals: Diann Lopez RN [Emergency Nurse] - 3 days
[2022-07-30 22:49] VITALS: BP 139/74; PULSE 84; RESP 20; O2SAT 97
[2022-07-31 01:06] VITALS: BP 130/73; PULSE 87; RESP 15; O2SAT 97
== END 2022-07-31 01:07 | disposition home or self-care (01) ==
PROVIDERS: Emergency Provider Emergency Medicine
DX: R00.2 Palpitations (principal); I48.20 Chronic atrial fibrillation, unspecified; E11.9 Type 2 diabetes mellitus without complications; I10 Essential (primary) hypertension; Z85.3 Personal history of malignant neoplasm of breast; Z79.899 Other long term (current) drug therapy
CPT/HCPCS: 36415; 80053; 84484; 85025; 93005; 99283; 99284

== ENCOUNTER → 2022-08-23 13:05 | Outpatient (BNVA) | payer MEDICARE, SELFPAY | PROVIDERS: PCP Internal Medicine Geriatric Medicine; Visit Provider Internal Medicine | DX: R00.2 Palpitations (principal) | CPT/HCPCS: 99202 ==

== ENCOUNTER → 2022-09-01 09:03 | Outpatient (REF) | payer MEDICARE, SELFPAY ==
--- NOTE | 2022-09-01 09:07 | HM_ITS ---
Conclusion: 1. Patient was monitored for total period of 2 days and 22 hours 2. Baseline was normal sinus rhythm with average heart of 80 beats per minute 3. No significant pauses or bradycardia noted 4. Very rare ectopy noted 5. No patient reported symptoms MTDD
--- NOTE | 2022-09-01 09:07 | CA_ITS ---
Transthoracic Echocardiogram Patient (Last, First, Middle): Gosia Collier, Gender: Female Date of : 1945 Age: 77 Procedure Date: 09/01/2022 Procedure Type: Transthoracic Echocardiogram Location: OP Height: 129. cm Weight: 45.81 kg BSA: 1.24 m2 Heart Rate: 77 bpm BP: 145 / 65 mmHg Magnetic Resonance Imaging Director: GOLDIE De La Cruz MD: Holden Gandara MD Salon/Spa Manager: Power Patel MD Symptoms: R00.2 - Palpitations Study Quality: Fair ECG Rhythm: Sinus Conclusions: - 1. Normal LV systolic function with impaired relaxation filling pattern 2. Mild aortic regurgitation with possible small mass on the right coronary cusps, consider KINGSLEY 3. Normal RV systolic pressure 4. No pericardial effusion Findings Left Ventricle Normal left ventricular size, thickness, and systolic function. The visually estimated ejection fraction is between 60-65%. Spectral Doppler is indicative of an impaired relaxation filling pattern. E/E prime ratio is between 8 and 15 consistent with indeterminate filling pressures. Right Ventricle Normal right ventricular cavity size and systolic function. Atria The left atrium is normal in size. Interatrial shunt cannot be excluded. The right atrium is normal in size. Aortic Valve There is mild thickening of the aortic valve. There is no aortic valve stenosis. There is mild aortic valve regurgitation. possible small mass on the right coronary cusp, could represent fibrocalcific changes or Lambl's excrescences. Fibroelastoma cannot be ruled out Mitral Valve Normal mitral valve structure and function. There is trace mitral valve regurgitation. There is no mitral valve stenosis. Pulmonic Valve The pulmonic valve is likely normal. Tricuspid Valve Normal tricuspid valve structure. There is trace tricuspid valve regurgitation. The right ventricular systolic pressure is normal. The right ventricular systolic pressure is 29 mmHg. Normal right atrial pressure. There is no evidence of pulmonary hypertension. Great Vessels All visible segments of the aorta are normal in size. The pulmonary artery was not well visualized. Venous The inferior vena cava is normal in size and collapses greater than 50% with inspiration. Pericardium/Pleural There is no evidence of pericardial effusion. Prior Study Comparison No significant change compared to prior study dated: 12/29/2017. Recommendations, Care & Conclusions Consider a KINGSLEY if clinically appropriate. Measurements 2D Linear Measurements IVSd: 0.95 0.6-0.9/0.6-1.0 cm LVIDd: 4.20 3.9-5.3/4.2-5.9 cm LVIDd Index: 3.39 2.4-3.2/2.2-3.1 cm/m2 LVIDs: 3.08 2.0-3.6 cm LVPWd: 1.00 0.7-1.1 cm LA Diam: 2.90 2.7-3.8/3.0-4.0 cm LAIDs Index: 2.34 1.5-2.3 cm/m2 LV Mass: 164.63 67-162/88-224 g LV Mass Index: 132.76 43-95/49-115 g/m2 LVOT Diam: 1.90 3.0+(-)1.3 cm 2D Systolic Function EF 4C: 61.90 >55% EF 2C: 66.70 >55% EF BiP: 64.30 >55% Mitral Valve MV Pk E: 0.90 MV PK A: 1.11 MV Decel Time: 175.00 E/A: 0.80 E'Lateral: 5.77 E'Medial: 4.03 E/E' Med: 22.30 E/E' Lat: 15.60 PHT: 51.00 MVA PHT: 4.31 Decel Meriwether: 5.13 Aortic Valve AoV Pk Stuart: 1.16 AoV Mn Stuart: 0.76 AoV VTI: 0.24 AoV Pk Grad: 5.00 Aov Mn Grad: 3.00 [place] Cont.VTI: 2.08 AI Pk Stuart: 4.16 AI Meriwether: 2.88 LVOT LVOT Pk Stuart: 0.87 LVOT Mn Stuart: 0.53 LVOT VTI: 0.18 LVOT Pk Grad: 3.00 LVOT Mn Grad: 1.00 LVOT Diam: 1.90 LVOT Area: 2.84 Diastolic Function MV Pk E: 0.90 MV Pk A: 1.11 E/A: 0.80 E'Medial: 4.03 E/E' Med: 22.30 E' Laterial: 5.77 E/E' Lat: 15.60 Right Ventricle TAPSE (mm): 21.60 TVS' Stuart: 11.60 Tricuspid Valve TR Pk Stuart: 2.54 TR Pk Grad: 26.00 RA Press: 3.00 RVSP: 29.00 Great Vessels Aorta Sinus of Valsalva: 2.80 2.0-3.5 cm Ao Asc: 3.00 2.1-3.4 cm Pulmonary Valve PV Pk Stuart: 0.75 Peak PV Grad: 2.00 Updated in Other Vendor System with Status of Final Power Patel MD electronically signed on 09/03/2022 1:11:28 PM with status of Final
== END ==
LOC: HO.CARD 09:03
PROVIDERS: Visit Provider Internal Medicine
DX: R00.2 Palpitations (principal)
CPT/HCPCS: 93242; 93306

== ENCOUNTER 2022-10-05 12:47 | Outpatient (REF) | payer OTHER, SELFPAY ==
--- NOTE | ~2022-10-05 | MM_ITS ---
EXAMINATION: BONE DENSITOMETRY CLINICAL INDICATION: Osteoporosis. COMPARISON: Previous BD dated 04/17/2019 and baseline BD dated 03/06/2007. TECHNIQUE: Using a [employer] DXA System (software version: 13.1) manufactured by [employer], dual-energy x-ray absorptiometry was performed of the lumbar spine and left hip. The images are of good technical quality. Summary results are attached. FINDINGS: AP SPINE L1-L4: Current: BMD 0.714 g/cm2, Z-score -1.6, T-score -3.9, osteoporosis, 10.5% decrease from previous, 2.2% decrease from baseline (<5% change is not significant). Prior: BMD 0.798 g/cm2. Baseline: BMD 0.730 g/cm2. LEFT FEMUR, NECK: Current: BMD 0.702 g/cm2, Z-score -0.1, T-score -2.4, osteopenia. Prior: BMD 0.775 g/cm2. Baseline: BMD 0.702 g/cm2. LEFT FEMUR, TOTAL: Current: BMD 0.883 g/cm2, Z-score 1.2, T-score -1.0, normal, 0.1% increase from previous, 3.4% increase from baseline (<5% change is not significant). Prior: BMD 0.882 g/cm2. Baseline: BMD 0.854 g/cm2. IDENTIFIED RISK FACTORS: Osteoporosis. Menopause. HISTORY OF FRACTURE: None listed. MEDICATIONS: Calcium supplement and/or multivitamin. Vitamin D. Bisphosphonates. MM/XR DEXA axial skeleton IMPRESSION: 1. DIAGNOSIS: Osteoporosis based on the lowest T-score value of -3.9 in the lumbar spine applying World Health Organization criteria. 2. 10-YEAR FRACTURE RISK PREDICTION, FRAX: According to the guidelines, FRAX calculation should only be performed on patients in the osteopenia bone density category.?Therefore, FRAX was not performed on this patient.? 3. Treatment Recommendations: NOF guidelines recommend consideration for treatment in postmenopausal women and men age 50 and older presenting with the following: -A hip or vertebral (clinical or morphometric) fracture. -T-score less than or equal to -2.5 at the femoral neck or spine after appropriate evaluation to exclude secondary causes. -Low bone mass at the hip or spine and a 10-year fracture probability by FRAX of greater than or equal to 3% for hip fracture or greater than or equal to 20% for major osteoporotic fracture based on the [place] adapted WHO algorithm. 4. Other Recommendations: All treatment decisions require clinical judgment and consideration of individual patient factors, including patient preferences, comorbidities, previous drug use, risk factors not captured in the FRAX model (e.g. frailty, falls, vitamin D deficiency, increased bone turnover, interval significant decline in bone density) and possible under or overestimation of fracture risk by FRAX. Additional medical evaluation for secondary cause of low bone mineral density may be appropriate. FUTURE SCAN RECOMMENDATION: People with diagnosed cases of osteoporosis or at high risk for fracture should have regular bone mineral density tests. For patients eligible for Medicare, routine testing is allowed once every 2 years. The testing frequency can be increased to one year for patients who have rapidly progressing disease, those who are receiving or discontinuing medical therapy to restore bone mass, or have additional risk factors.
== END 2022-10-05 12:48 | disposition home or self-care (01) ==
LOC: HO.MAMMO 12:47
PROVIDERS: PCP Internal Medicine Geriatric Medicine; Visit Provider Internal Medicine
DX: Z13.820 Encounter for screening for osteoporosis (principal); M81.0 Age-related osteoporosis without current pathological fracture; Z78.0 Asymptomatic menopausal state
CPT/HCPCS: 77080

== ENCOUNTER → 2022-10-19 09:06 | Outpatient (BNVA) | payer OTHER, SELFPAY | PROVIDERS: PCP Internal Medicine Geriatric Medicine; Visit Provider Internal Medicine | DX: I35.9 Nonrheumatic aortic valve disorder, unspecified (principal); I10 Essential (primary) hypertension; R00.2 Palpitations | CPT/HCPCS: 99212 ==

== ENCOUNTER 2023-03-15 08:25 | Outpatient (REF) | payer OTHER, SELFPAY ==
[2023-03-15 11:49] LABS: Alanine Aminotransferase 20 U/L (0-31); Albumin Level 4.2 g/dL (3.5-5.0); Alkaline Phosphatase 67 U/L (39-117); Anion Gap 15 (12-20); Aspartate Amino Transferase 18 U/L (5-31); Bilirubin Total 0.4 mg/dL (0.0-1.0); Blood Urea Nitrogen 12 mg/dL (9-16); Calcium 9.9 mg/dL (8.4-10.2); Carbon Dioxide 22 mmol/L (22-29); Chloride 106 mmol/L (96-108); Cholesterol 191 mg/dL; Estimated Glomerular Filt Rate > 60; Glucose Random 195 mg/dL (60-115); HDL Cholesterol 50 mg/dL; LDL Cholesterol Calculated 103 mg/dl; Sodium 139 mmol/L (135-145); Total Protein 7.6 g/dL (6.5-8.0); Triglycerides 190 mg/dL
== END 2023-03-15 08:26 | disposition home or self-care (01) ==
LOC: HO.HHCL 08:25
PROVIDERS: Visit Provider Internal Medicine Geriatric Medicine
DX: E11.9 Type 2 diabetes mellitus without complications (principal); I10 Essential (primary) hypertension; J30.9 Allergic rhinitis, unspecified
CPT/HCPCS: 36415; 80053; 80061

== ENCOUNTER 2023-04-25 09:44 | Outpatient (REF) | payer OTHER, SELFPAY ==
--- NOTE | ~2023-04-25 | MM_ITS ---
EXAMINATION: MM SCREENING DIGITAL BREAST TOMOSYNTHESIS, BILATERAL CLINICAL INFORMATION: Screening. Asymptomatic. Invasive ductal breast cancer treated with lumpectomy in 2007. 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 COMPARISON: Mammography: This study is compared with prior exams dating back to 2018. TECHNIQUE: Digital breast tomosynthesis is performed in both the craniocaudal and mediolateral oblique views along with computer-aided detection (CAD). Synthesized 2D images are generated from the tomosynthesis. FINDINGS: There are scattered areas of fibroglandular density (ACR BI-RADS breast composition Category b). There are postsurgical changes in the left breast. This occurs in the upper outer quadrant in 2 separate areas, representing areas excision for invasive ductal cancer and DCIS. There benign calcifications present in the left breast. There is a tissue marker indicating the site of prior benign biopsy in the medial aspect of the right breast. There are also benign calcifications present in the right breast. There are no significant masses, abnormal calcifications, or other abnormalities insurance healthcare representative of malignancy at the current time. MM/MM tomosynthesis screening BI IMPRESSION: No mammographic evidence of malignancy. ASSESSMENT: BI-RADS BI-RADS 2 - Benign Findings RECOMMENDATION: Routine annual mammography screening. 1 year F/U This examination should not preclude the clinical evaluation of a suspicious palpable abnormality. This patient's information was entered into a reminder system with a target due date for their next mammogram.
== END 2023-04-25 09:45 | disposition home or self-care (01) ==
LOC: HO.MAMMO 09:44
PROVIDERS: PCP Internal Medicine Geriatric Medicine; Visit Provider Internal Medicine
DX: Z12.31 Encounter for screening mammogram for malignant neoplasm of breast (principal)
CPT/HCPCS: 77063; 77067

== ENCOUNTER → 2023-04-25 09:45 | Outpatient (BNV) | payer OTHER, SELFPAY | PROVIDERS: PCP Internal Medicine Geriatric Medicine; Visit Provider Radiology Diagnostic Radiology | DX: Z12.31 Encounter for screening mammogram for malignant neoplasm of breast (principal) | CPT/HCPCS: 77063; 77067 ==

== ENCOUNTER 2023-07-07 11:40 | Outpatient (REF) | payer OTHER, SELFPAY ==
[2023-07-07 14:11] LABS: Creatinine Urine 24.83 mg/dL; Microalbum/Creatinine Ratio Ur 253.7 ug/mg cr (<30)
== END 2023-07-07 11:41 | disposition home or self-care (01) ==
LOC: HO.HHCL 11:40
PROVIDERS: Visit Provider Internal Medicine Geriatric Medicine
DX: E11.9 Type 2 diabetes mellitus without complications (principal)
CPT/HCPCS: 82043; 82570

== ENCOUNTER 2023-09-28 08:28 | Outpatient (REF) | payer OTHER, SELFPAY ==
[2023-09-28 12:00] LABS: Alanine Aminotransferase 16 U/L (0-31); Albumin Level 4.4 g/dL (3.5-5.0); Alkaline Phosphatase 77 U/L (39-117); Aspartate Amino Transferase 17 U/L (5-31); Bilirubin Direct 0.1 mg/dL (0.0-0.5); Bilirubin Total 0.3 mg/dL (0.0-1.0); Cholesterol 168 mg/dL (<200); HDL Cholesterol 53 mg/dL (>40); LDL Cholesterol Calculated 90 mg/dL (<100); Triglycerides 129 mg/dL (<150)
[2023-09-28 12:21] LABS: Creatinine Urine 29.38 mg/dL; Microalbum/Creatinine Ratio Ur 319.9 ug/mg cr (<30)
== END 2023-09-28 08:29 | disposition home or self-care (01) ==
LOC: HO.HHCL 08:28
PROVIDERS: Visit Provider Internal Medicine Geriatric Medicine
DX: E11.9 Type 2 diabetes mellitus without complications (principal)
CPT/HCPCS: 36415; 80061; 80076; 82043; 82570

== ENCOUNTER → 2023-10-10 11:13 | Outpatient (REF) | payer OTHER, SELFPAY ==
--- NOTE | 2023-10-10 11:17 | HM_ITS ---
Cardiac event monitor Indication: Paroxysmal atrial fibrillation Technique: Patient was hooked up to cardiac event monitor on 10/10/2023 for total period of 30 days with compliance rate of about 56%. I was requested to read this study on 11/18/2023. Findings: Baseline was normal sinus rhythm with maximum heart rate 111 beats per minute. There were no significant bradycardia or pauses noted. Rare supraventricular ectopy and ventricular ectopy noted. One episode of paroxysmal atrial tachycardia noted. No episodes of atrial fibrillation noted. Patient marked the counter 20 1 times but reported only 10 symptoms. All of these correlated with sinus rhythm. Conclusion: 1. Baseline was normal sinus rhythm with no significant pauses 2. No episodes of atrial fibrillation 3. Rare PACs and PVCs noted 4. Patient reported events correlated with sinus rhythm MTDD
== END ==
LOC: HO.CARD 11:13
PROVIDERS: PCP Internal Medicine Geriatric Medicine; Visit Provider Internal Medicine
DX: I48.0 Paroxysmal atrial fibrillation (principal); R00.2 Palpitations
CPT/HCPCS: 93270

== ENCOUNTER → 2023-10-10 11:17 | Outpatient (BNV) | payer OTHER, SELFPAY | PROVIDERS: PCP Internal Medicine Geriatric Medicine; Visit Provider Internal Medicine Cardiovascular Disease | DX: I47.9 Paroxysmal tachycardia, unspecified (principal); I49.1 Atrial premature depolarization; I49.3 Ventricular premature depolarization | CPT/HCPCS: 93272 ==

== ENCOUNTER 2023-11-28 11:03 | Outpatient (REF) | payer OTHER, SELFPAY ==
[2023-11-28 14:46] LABS: Anion Gap 16 (12-20); Blood Urea Nitrogen 17 mg/dL (9-16); Carbon Dioxide 26 mmol/L (22-29); Chloride 103 mmol/L (96-108); Estimated Glomerular Filt Rate > 60; Glucose Random 173 mg/dL (60-115); Sodium 141 mmol/L (135-145)
== END 2023-11-28 11:04 | disposition home or self-care (01) ==
LOC: HO.HHCL 11:03
PROVIDERS: Visit Provider Internal Medicine Geriatric Medicine
DX: E11.9 Type 2 diabetes mellitus without complications (principal)
CPT/HCPCS: 36415; 80048

== ENCOUNTER 2023-11-29 08:05 | Outpatient (AMB) | payer OTHER, SELFPAY ==
[2023-11-29 08:23] VITALS: BP 128/66; PULSE 83; BMI 45.5
--- NOTE | 2023-11-29 08:23 | A.OFFVIS_ITS ---
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: No Accompanied by: Grand Child Allergies penicillin V Allergy (Unknown, Verified 11/29/23 08:23) rash, swelling Medication List - Last Reconciled 11/29/23 by Holden Gandara MD acetaminophen 500 mg PO DAILY albuterol sulfate 2.5 mg inhalation Q4-6H PRN alendronate 70 mg PO QWEEK amlodipine 2.5 mg PO DAILY blood pressure test kit-large calcium carbonate-vitamin D3 600 mg-10 mcg (400 unit) 1 ea PO DAILY empagliflozin 25 mg PO DAILY fluticasone propion-salmeterol 100-50 mcg/dose (Advair Diskus) 1 inh inhalation DAILY fluticasone propionate 50 mcg/actuation (Flonase Allergy Relief) 2 sprays intranasal DAILY glipizide ER 10 mg PO DAILY loratadine 10 mg PO DAILY losartan 50 mg PO DAILY metformin 500 mg PO BID metoprolol succinate ER 100 mg PO QAM omeprazole 20 mg PO DAILY simvastatin 10 mg PO DAILY HPI HPI Comments History of Present Illness Details Gosia returns for follow-up. In the past, she was seen regarding palpitations. There was a question of atrial fibrillation. EMS mentioned atrial fibrillation but that seemed to be rather sinus tachycardia to me. Since last seen, overall, she is doing good. No complaints like angina or shortness of breath or palpitations or in fact anything cardiac sounding. Granddaughter acted as water conservation specialist but not willing to sign the form with medical staff physician. 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 Current occupational exposures/hazards: No Review of Systems Const All systems reviewed & are unremarkable except as noted in HPI and below Reports as per HPI and Reports no additional complaints Eyes Reports as per HPI and Denies no additional complaints ENT Denies no additional complaints and Reports as per HPI Card Reports as per HPI, Reports no additional complaints, Denies acrocyanosis, Denies chest pain, Denies leg edema, Denies lightheadedness, Denies palpitations and Denies dyspnea Resp Reports as per HPI, Denies no additional complaints and Denies dyspnea GI Reports as per HPI and Denies no additional complaints Reports as per HPI Musc Reports no additional complaints and Reports as per HPI Skin/Breast Reports system reviewed and no additional complaints, except as documented Neuro Reports no additional complaints and Reports as per HPI Psych Reports no additional complaints and Reports as per HPI Endo Reports no additional complaints, Reports as per HPI and Denies palpitations Teofilo/Lymph Reports no additional complaints and Reports as per HPI Aller/Immun Reports no additional complaints and Reports as per HPI Physical Exam Vital Signs: Last Vital Signs Pulse 83 11/29/23 08:23 BP 128/66 11/29/23 08:23 BMI result Body Mass Index 45.5 Const General: comfortable and no acute distress Orientation/consciousness: patient oriented x3 HEENT Other: Unremarkable Head: Yes normal to inspection Neck Neck: Yes normal visual inspection Chest Chest palpation & inspection: normal inspection of the chest Resp Auscultation: clear to auscultation bilaterally Cardio Palpation: normal PMI Heart sounds: S1 normal heart sound present, S2 normal heart sound present, no gallops, no murmurs and no rubs GI Palpation (GI): Soft to palpation Back/Spine/Pelvis Other: unremarkable Skin General skin exam: no rashes or lesions noted Neuro General: patient oriented x3 Extrem General: Yes normal to inspection Psych Mental Status: mental status grossly normal Office Procedures EKG Details: EKG with sinus rhythm at 83/Min; no significant ST-T changes and otherwise unremarkable. [place]. [address]-[id number], Complete Assessment & Plan Assessment & Plan (1) Palpitations: Code(s): R00.2 - Palpitations (2) Aortic valve calcification: Code(s): I35.9 - Nonrheumatic aortic valve disorder, unspecified Plan Cardiac studies reviewed. EKG today shows normal sinus rhythm. In the past, EMS EKG reported as atrial fibrillation, but upon my evaluation shows sinus tachycardia rather. EKG that was completed in the ER shows sinus tachycardia as well. In the Holter, there is underlying sinus rhythm with no significant ectopy and no evidence of atrial fibrillation. Recent 30 day monitor shows sinus rhythm with no evidence of atrial fibrillation. Rare PACs/PVCs. Echocardiogram shows normal LVEF, 60-65%. Mild aortic regurgitation and suspected calcification. Overall, based on the above, no clear cut evidence of any atrial fibrillation. Hence reassurance only. With regard to the aortic valve findings, no specific management at this time. Discussed with granddaughter who came. Coding Level of Care Code Est Pt Level 3 (58390) Diagnoses Palpitations R00.2 Aortic valve calcification I35.9 CPT Codes EKG - CPT: 92480-[id number], Complete ([id number])
== END 2023-11-29 08:43 | disposition home or self-care (01) ==
PROVIDERS: PCP Internal Medicine Geriatric Medicine; Visit Provider Internal Medicine
DX: R00.2 Palpitations (principal); I35.9 Nonrheumatic aortic valve disorder, unspecified
CPT/HCPCS: 93010; 99213

== ENCOUNTER → 2023-11-29 08:05 | Outpatient (BNVA) | payer OTHER, SELFPAY | PROVIDERS: PCP Internal Medicine Geriatric Medicine; Visit Provider Internal Medicine | DX: I35.9 Nonrheumatic aortic valve disorder, unspecified (principal); R00.2 Palpitations | CPT/HCPCS: 93005; 99212 ==

== ENCOUNTER 2024-02-23 11:54 | Outpatient (REF) | payer OTHER, SELFPAY ==
[2024-02-24 03:31] LABS: ~HepC Num1 0.09 S/CO (0.00-0.79); ~Hepatitis C Antibody Nonreactive (Nonreactive)
== END 2024-02-23 11:55 | disposition home or self-care (01) ==
LOC: HO.HHCL 11:54
PROVIDERS: Visit Provider Internal Medicine Geriatric Medicine
DX: Z11.59 Encounter for screening for other viral diseases (principal)
CPT/HCPCS: 36415; 86803

== ENCOUNTER 2024-04-02 12:19 | Outpatient (REF) | payer OTHER, SELFPAY ==
--- NOTE | ~2024-04-02 | MM_ITS ---
EXAMINATION: MM DIAGNOSTIC DIGITAL BREAST TOMOSYNTHESIS, BILATERAL US BREAST LIMITED, LEFT MAMMOGRAPHY: CLINICAL INFORMATION: Palpable upper outer quadrant left breast lump. The patient has a history of 2 conservatively treated breast cancers in the upper outer quadrant of the left breast. COMPARISON: Mammography: This study is compared with prior breast imaging dating back to 2019. TECHNIQUE: Digital breast tomosynthesis is performed in both the craniocaudal and mediolateral oblique views along with computer-aided detection (CAD). Synthesized 2D images are generated from the tomosynthesis. FINDINGS: There are scattered areas of fibroglandular density (ACR BI-RADS breast composition Category b). There are postsurgical changes in the upper outer quadrant of the left breast. 2 treatment bed are present, one at a middle depth and the other in anterior depth. There are bilateral benign calcifications. There is a biopsy tissue marker in the right breast. There are no significant masses, abnormal calcifications, or other abnormalities. ULTRASOUND: CLINICAL INFORMATION: Palpable upper outer quadrant left breast lump. COMPARISON: None TECHNIQUE: Targeted sonographic evaluation was performed using a high frequency linear transducer. Selected archived documentation. FINDINGS: LEFT BREAST: There are changes of scarring in the upper outer quadrant. There is no suspicious mass. Clinical follow-up advised. MM/MM tomosynthesis diagnostic BI IMPRESSION: Posttreatment changes upper outer quadrant left breast. No mammographic signs of malignancy in either breast at the current time. No suspicious sonographic findings in the area of the patient's palpable lump in the upper outer quadrant of the left breast. Clinical follow-up advised. OVERALL ASSESSMENT: Mammography: BI-RADS 2 - Benign Findings Ultrasound: BI-RADS 2 - Benign Findings RECOMMENDATION: 1. Patient should be managed based on the clinical impression. 2. Otherwise, routine annual screening mammography. Results were provided to the patient at time of visit by the technologist. This patient's information was entered into a reminder system with a target due date for their next mammogram.
== END 2024-04-02 12:20 | disposition home or self-care (01) ==
LOC: HO.MAMMO 12:19
PROVIDERS: PCP Internal Medicine Geriatric Medicine; Visit Provider Internal Medicine
DX: Z85.3 Personal history of malignant neoplasm of breast (principal)
CPT/HCPCS: 76642; 77062; 77066

== ENCOUNTER → 2024-04-02 12:30 | Outpatient (BNV) | payer OTHER, SELFPAY | PROVIDERS: PCP Internal Medicine Geriatric Medicine; Visit Provider Radiology Diagnostic Radiology | DX: N63.21 Unspecified lump in the left breast, upper outer quadrant (principal); Z85.3 Personal history of malignant neoplasm of breast | CPT/HCPCS: 76642; 77066; G0279 ==

== ENCOUNTER 2024-07-13 14:51 | Emergency (ER) | payer OTHER, SELFPAY ==
--- NOTE | ~2024-07-13 | CT_ITS ---
EXAMINATION: CT ANKLE WITHOUT CONTRAST, RIGHT CLINICAL INFORMATION: Pain. Question lateral malleolar fracture. COMPARISON: Right ankle radiographs done earlier the same day. TECHNIQUE: Contiguous axial CT images of the right ankle were obtained without contrast. Multiplanar reformats were provided and reviewed. This CT examination was performed using dose optimization techniques as appropriate, variously including the following: *Automated exposure control. *Adjustment of mA and/or kV according to patient size (this includes techniques or standardized protocols for targeted exams where dose is matched to indication/reason for exam; i.e. extremities or head). *Use of iterative reconstruction technique. DOSE: 125 mGycm. FINDINGS: Irregular spurring along the distal aspect of the lateral malleolus in the region of the prior radiograph findings, likely representing sequela of remote injury. No acute fracture. No dislocation. The ankle mortise is maintained. Os trigonum with mild degenerative change. Plantar and dorsal calcaneal spurs. No talar osteochondral lesion. No tarsal coalition. Small tibiotalar and subtalar joint effusions. Mild medial and lateral subcutaneous edema. No soft tissue mass or fluid collection. The visualized flexor and extensor tendons are grossly intact; however, evaluation significantly limited on CT examination. CT/CT ankle RT wo IV con IMPRESSION: 1. Irregular spurring along the distal aspect of the lateral malleolus in the region of the prior radiograph findings, likely representing sequela of remote injury. No acute fracture or dislocation. 2. Os trigonum with mild degenerative change. 3. Plantar and dorsal calcaneal spurs. 4. Small tibiotalar and subtalar joint effusions. Electronically signed by: Rob Vicente MD 07/13/2024 09:12 PM [facility]
--- NOTE | ~2024-07-13 | XR_ITS ---
EXAMINATION: XR ANKLE, RIGHT CLINICAL INFORMATION: Pain. COMPARISON: None available. TECHNIQUE: AP, lateral, and mortise views of the right ankle. FINDINGS: No displaced fracture. Mild cortical irregularity at the distal aspect of the lateral malleolus which could indicate a nondisplaced fracture. The ankle mortise is maintained. No joint space narrowing or marginal osteophytes. No talar osteochondral lesion. Pes planus. Plantar and dorsal calcaneal spurs. Calcification anterior to the tibiotalar joint measuring up to 0.3 cm which could represent a small loose body. Small tibiotalar joint effusion. Prominent lateral soft tissue edema/swelling. XR/XR ankle RT min 3V IMPRESSION: 1. Mild cortical irregularity at the distal aspect of the lateral malleolus which could indicate a nondisplaced fracture. 2. Prominent lateral soft tissue edema/swelling. Small tibiotalar joint effusion. Calcification anterior to the tibiotalar joint measuring up to 0.3 cm which could represent a small loose body. Electronically signed by: Rob Vicente MD 07/13/2024 04:56 PM SUSAN
[2024-07-13 15:16] VITALS: BP 184/73; PULSE 88; RESP 18; TEMP 37; O2SAT 97; BMI 47.1
[2024-07-13 16:21] VITALS: BP 192/72; PULSE 94; RESP 16; TEMP 36.4; O2SAT 96
--- NOTE | 2024-07-13 16:47 | ED_ITS ---
HPI - Extremity Injury (Lower) General Chief Complaint: Extremity Injury, Lower Stated Complaint: ankle swollen Time Seen by Provider: 07/13/24 16:24 Source: patient and family (grand daughter) Mode of arrival: ambulatory Limitations: no limitations History of Present Illness ED Provider: TAB GONZALEZ PA-C HPI Narrative: 79 year old female with pmhx significant for HTN, osteoporosis, DM, ischemic CVA presents to the ED today for evaluation of right ankle pain/ swelling x2 weeks. Report pain is primarily to the outer aspect and the top of her ankle/foot. Reports history of injury to the ankle years back. Denies new injury or trauma. Admits to pain with ambulation. She has been taking tylenol at home, last dose yesterday. Denies recent travel or long car rides. Denies recent antibiotics. Related Data Home Medications ?Medication ?Instructions ?Recorded ?Confirmed acetaminophen 500 mg tablet 500 mg PO DAILY 10/07/20 03/19/24 albuterol sulfate 2.5 mg/3 mL 2.5 mg inhalation Q4-6H PRN 10/07/20 03/19/24 (0.083 %) solution for nebulization Respiratory Distress fluticasone 100 mcg-salmeterol 50 1 inh inhalation DAILY 10/07/20 03/19/24 mcg/dose blistr powdr for inhalation (Advair Diskus) loratadine 10 mg tablet 10 mg PO DAILY 10/07/20 03/19/24 omeprazole 20 mg capsule,delayed 20 mg PO DAILY 10/07/20 03/19/24 release simvastatin 10 mg tablet 10 mg PO DAILY 10/07/20 03/19/24 blood pressure test kit-large 03/15/22 11/29/23 metoprolol succinate 100 mg 100 mg PO QAM 08/23/22 03/19/24 tablet,extended release 24 hr amlodipine 2.5 mg tablet 2.5 mg PO DAILY 09/27/22 03/19/24 empagliflozin 25 mg tablet 25 mg PO DAILY 09/27/22 03/19/24 glipizide 10 mg tablet, extended 10 mg PO DAILY 09/27/22 03/19/24 release 24 hr metformin 500 mg tablet 500 mg PO BID 09/27/22 03/19/24 calcium carbonate 600 mg-vitamin 1 ea PO DAILY 10/19/22 03/19/24 D3 10 mcg (400 unit) tablet losartan 50 mg tablet 50 mg PO DAILY 10/19/22 03/19/24 Previous Rx's ?Medication ?Instructions ?Recorded fluticasone propionate 50 2 spray intranasal DAILY #16 grams 05/11/21 mcg/actuation nasal spray,suspension (Flonase Allergy Relief) Allergies Allergy/AdvReac Type Severity Reaction Status Date / Time penicillin V Allergy Unknown rash, Verified 07/13/24 15:17 swelling Review of Systems Review of Systems: Constitutional: No fever, chills, fatigue, night sweats, weight changes ENT/Mouth: No ear pain, hearing loss, nasal congestion, sinus pain, rhinorrhea, sore throat Eyes: No eye pain, swelling, redness, vision changes, discharge Cardio: No chest pain, palpitations, ROSE, orthopnea, peripheral edema Pulm: No SOB, cough, sputum, wheezing, dyspnea, hemoptysis GI: No nausea, vomiting, hematemesis, abdominal pain, diarrhea, constipation, hematochezia, melena : No irregular bleeding, dysuria, frequency, urgency, hesitancy, hematuria, flank pain, urinary flow changes, urinary incontinence or retention MSK: No back pain, neck pain, joint pain, myalgias, +right ankle pain Skin: No lesions, rashes Neuro: No weakness, numbness, paresthesias, LOC, dizziness, headache Psych: No anxiety/panic, depression, SI/HI, AH/VH All other systems reviewed and are negative. [facility], [facility] Past Medical History Attestation statement: The following information was validated with the patient. 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 Surgical History History of tubal ligation History of right breast biopsy Family History Family History Mother Coronary artery disease Father Throat cancer Social History Social History Household Members: Friend(s) Housing: Apartment Alcohol intake: never Patient Tobacco Use Status: Never used Tobacco Smoked in Last 30 Days: No Use of substances other than those prescribed or required for medical reasons: No Advance Directives: No Advance Directives Information Provided: No Do you have a plan to hurt others: No Plan service: No Current occupational status: disabled Current occupation: does not work. Current occupational exposures/hazards: No Physical Exam Vital Signs: Vital Signs: Last Vital Signs Temp 96.8 F 07/13/24 21:28 Pulse 96 07/13/24 21:28 Resp 20 07/13/24 21:28 BP 156/64 H 07/13/24 21:28 Pulse Ox 97 07/13/24 21:28 O2 Del Method Room Air 07/13/24 21:28 BMI result Body Mass Index 47.1 hypertensive, vitals otherwise wnl General: Well appearing, in no acute distress. Skin: Warm, dry, intact. No rashes or lesions. Head: Normocephalic, atraumatic. EENT: Hearing is intact b/l. Conjunctiva clear. PERRLA. EOM intact. Moist mucous membranes.? Neck: Supple without LAD Cardiac: Chest wall symmetric. RRR Lungs: Normal respiratory effort without accessory muscle use. CTA bilaterally Back: No midline spinous or paraspinal tenderness. No step off deformity. Ext: +right ankle with moderate amount of soft tissue swelling primarily over the lateral malleolus. no erythema. FROM intact to ankle and toes. Tender to palpation over lateral malleolus without palpable crepitus, deformity, warmth. No calf tenderness. No tenderness over Achilles tendon insertion or plantar fascia. 2+ PT/DP pulse intact. Sensation intact. Ambulating with steady gait assisted by cane. Neuro: AOx3. Normal speech. Psych: Appropriate mood and affect. Responds appropriately to questions. Course Course Course Narrative: 1702 -- X-ray right ankle showing mild cortical irregularity at the distal aspect of the lateral malleolus which could indicate question nondisplaced fracture. There is prominent lateral soft tissue edema/swelling, small tibiotalar joint effusion, calcification anterior to the tibiotalar joint measuring up to 0.3 cm which could represent a small loose body. > given possible fracture, will obtain CT ankle to further characterize. patient placed in aircast in the meantime. Patient medicated with Tylenol for pain control. Sitting comfortably. She has been noted to be hypertensive since arrival. She tells me that she did not take her losartan which she takes at 4:00 p.m. daily. She was initially agreeable to take this in the ED however upon RN entrance into the room, patient declined medication. last BP 150/65. asymptomatic. Medications Administered Discontinued Medications Generic Name Dose Route Start Last Admin Trade Name Aisha PRN Reason Stop Dose Admin Acetaminophen 975 mg 07/13/24 16:48 07/13/24 16:53 Acetaminophen 325 Mg Tablet PO 07/13/24 16:49 975 mg ONCE ONE Administration Losartan Potassium 50 mg 07/13/24 16:48 07/13/24 16:55 Losartan Potassium 50 Mg Tablet PO 07/13/24 16:49 Not Given ONCE ONE Protocol Medical Decision Making Medical Decision Making MDM Narrative: 79 year old female with pmhx significant for HTN, osteoporosis, DM, ischemic CVA presents to the ED today for evaluation of right ankle pain/ swelling x2 weeks. Hypertensive, vitals otherwise wnl. she is nontoxic appearing and in nad. on exam of RLE, right ankle with moderate amount of soft tissue swelling primarily over the lateral malleolus. no erythema. FROM intact to ankle and toes. Tender to palpation over lateral malleolus without palpable crepitus, deformity, warmth. No calf tenderness. No tenderness over Achilles tendon insertion or plantar fascia. 2+ PT/DP pulse intact. Sensation intact. Ambulating with steady gait assisted by cane. Differential diagnosis includes arthritis, Presentation not consistent with gout, pseudogout, Lyme arthritis, septic joint. No concern for neurovascular compromise, threat to limb, compartment syndrome. Plan for x-ray, pain control, re-evaluation. Differential Diagnosis Differential Diagnoses: The differential diagnosis associated with the presentation includes As above Admission/Observation Not indicated Independent Interpretation I performed an independent interpretation of an: Plain X-Ray and CT Scan Interpretation: X-ray right ankle with cortical thickening at base of lateral malleolus CT right ankle without fracture Radiology Impression Discussion of test interpretation with radiology: I have reviewed the radiologist's reading. Radiologist Impression: EXAMINATION: XR ANKLE, RIGHT CLINICAL INFORMATION: Pain. COMPARISON: None available. TECHNIQUE: AP, lateral, and mortise views of the right ankle. FINDINGS: No displaced fracture. Mild cortical irregularity at the distal aspect of the lateral malleolus which could indicate a nondisplaced fracture. The ankle mortise is maintained. No joint space narrowing or marginal osteophytes. No talar osteochondral lesion. Pes planus. Plantar and dorsal calcaneal spurs. Calcification anterior to the tibiotalar joint measuring up to 0.3 cm which could represent a small loose body. Small tibiotalar joint effusion. Prominent lateral soft tissue edema/swelling. XR/XR ankle RT min 3V IMPRESSION: 1. Mild cortical irregularity at the distal aspect of the lateral malleolus which could indicate a nondisplaced fracture. 2. Prominent lateral soft tissue edema/swelling. Small tibiotalar joint effusion. Calcification anterior to the tibiotalar joint measuring up to 0.3 cm which could represent a small loose body. Electronically signed by: Rob Vicente MD 07/13/2024 04:56 PM [facility] [place], [place] EXAMINATION: CT ANKLE WITHOUT CONTRAST, RIGHT CLINICAL INFORMATION: Pain. Question lateral malleolar fracture. COMPARISON: Right ankle radiographs done earlier the same day. TECHNIQUE: Contiguous axial CT images of the right ankle were obtained without contrast. Multiplanar reformats were provided and reviewed. This CT examination was performed using dose optimization techniques as appropriate, variously including the following: *Automated exposure control. *Adjustment of mA and/or kV according to patient size (this includes techniques or standardized protocols for targeted exams where dose is matched to indication/reason for exam; i.e. extremities or head). *Use of iterative reconstruction technique. DOSE: 125 mGycm. FINDINGS: Irregular spurring along the distal aspect of the lateral malleolus in the region of the prior radiograph findings, likely representing sequela of remote injury. No acute fracture. No dislocation. The ankle mortise is maintained. Os trigonum with mild degenerative change. Plantar and dorsal calcaneal spurs. No talar osteochondral lesion. No tarsal coalition. Small tibiotalar and subtalar joint effusions. Mild medial and lateral subcutaneous edema. No soft tissue mass or fluid collection. The visualized flexor and extensor tendons are grossly intact; however, evaluation significantly limited on CT examination. CT/CT ankle RT wo IV con IMPRESSION: 1. Irregular spurring along the distal aspect of the lateral malleolus in the region of the prior radiograph findings, likely representing sequela of remote injury. No acute fracture or dislocation. 2. Os trigonum with mild degenerative change. 3. Plantar and dorsal calcaneal spurs. 4. Small tibiotalar and subtalar joint effusions. Electronically signed by: Rob Vicente MD 07/13/2024 09:12 PM [facility] [place] [place] Independent Historian Clinical information obtained from an independent historian. History obtained from or confirmed by: Other (grand daughter) External Record Review External record reviewed: Inpatient record Prescription Management I considered prescription management with: Pain Medication Chronic Conditions Patient?s care impacted by: Other (osteoporosis) Social Determinants Patient?s care significantly limited by Social Determinants of Health including: Other Social Determinant of Health Procedures Orthopedic Splinting/Casting Injury #1: Side: right Lower Extremity Injury Location: ankle Lower Extremity Immobilizer: AirCast Critical Care Time Critical Care Time Critical Care Time: No Discharge Plan Discharge Clinical Impression: Acute right ankle pain Patient Disposition: Home, Self-Care Instructions: Ankle Sprain (ED) Additional Instructions: Your CT scan does not show any evidence of acute ankle fracture. You likely have an ankle sprain. Use/Tylenol as needed for pain Follow-up with your primary doctor, return for new or worsening symptoms Prescriptions: No Action amlodipine 2.5 mg tablet 2.5 mg PO DAILY metformin 500 mg tablet 500 mg PO BID glipizide 10 mg tablet extended release 24hr 10 mg PO DAILY empagliflozin 25 mg tablet 25 mg PO DAILY fluticasone propionate [Flonase Allergy Relief] 50 mcg/actuation spray,suspension 2 spray intranasal DAILY Qty: 16 0RF Rx Instructions: administer into each nostril acetaminophen 500 mg tablet 500 mg PO DAILY fluticasone propion-salmeterol [Advair Diskus] 100-50 mcg/dose blister with device 1 inh inhalation DAILY omeprazole 20 mg capsule,delayed release(DR/EC) 20 mg PO DAILY loratadine 10 mg tablet 10 mg PO DAILY albuterol sulfate 2.5 mg /3 mL (0.083 %) solution for nebulization 2.5 mg inhalation Q4-6H PRN (Reason: Respiratory Distress) simvastatin 10 mg tablet 10 mg PO DAILY (DME) blood pressure test kit-large Kit MISCELLANEOUS DAILY metoprolol succinate 100 mg tablet extended release 24 hr 100 mg PO QAM losartan 50 mg tablet 50 mg PO DAILY calcium carbonate-vitamin D3 600 mg-10 mcg (400 unit) tablet 1 ea PO DAILY Interventions: ED Discharge Assessment Last Done: 07/13/24 21:28 Discharge Date/Time: 07/13/24 21:37 Print Language: Tamazight
[2024-07-13] MEDS: Acetaminophen 325 MG TABLET 975 MG PO (16:53)
--- NOTE | 2024-07-13 16:55 | PC.NURSE ---
Pt. refused LAURY Morgan. PA notified.
[2024-07-13 18:05] VITALS: BP 150/65; PULSE 86; RESP 16; TEMP 36.2; O2SAT 97
[2024-07-13 20:07] VITALS: BP 146/64; PULSE 89; RESP 16; TEMP 36.4; O2SAT 97
[2024-07-13 21:28] VITALS: BP 156/64; PULSE 96; RESP 20; TEMP 36; O2SAT 97
--- NOTE | 2024-07-13 21:31 | PC.NURSE ---
Reviewed discharge instruction with pt, pt verbalized understanding, elevated pt bp, provider aware, positive cms, air cast applied.
== END 2024-07-13 21:37 | disposition home or self-care (01) ==
PROVIDERS: Emergency Provider Emergency Medicine; PCP Internal Medicine Geriatric Medicine
DX: M25.571 Pain in right ankle and joints of right foot (principal); E11.9 Type 2 diabetes mellitus without complications; I10 Essential (primary) hypertension; Z79.84 Long term (current) use of oral hypoglycemic drugs; Z79.899 Other long term (current) drug therapy; Z79.02 Long term (current) use of antithrombotics/antiplatelets
CPT/HCPCS: 73610; 73700; 99284

== ENCOUNTER 2024-12-20 10:03 | Outpatient (REF) | payer OTHER, SELFPAY ==
--- NOTE | ~2024-12-20 | XR_ITS ---
EXAMINATION: XR LUMBAR SPINE 2-3 VIEWS HISTORY: PAIN COMPARISON: There are no prior studies for comparison. FINDINGS: AP, lateral, and coned down views of the lumbar spine are submitted. The bones are osteopenic. Five nonrib-bearing lumbar vertebral bodies are identified, maintaining normal height and alignment without evidence of fracture or spondylolisthesis. There is mild degenerative disc disease at the L5-S1 level with anterior spurring. There is osteoarthritis of the facet joints. The visualized paraspinal soft tissues are unremarkable. XR/XR lumbar spine 2-3V IMPRESSION: Osteopenia. Mild degenerative disc disease of the lower lumbar spine as described. Electronically signed by: Gino Gusman MD 12/20/2024 12:03 PM EDT
--- OUTSIDE RECORDS SUMMARY | 2024-12-20 11:48 | XMS_ITS | Encounter Summary ---
Author Organization [employer] Address [address] [place] [address] Care Team Providers Care Self Rising Flour Mixer Name Role Phone Name, Tristin COLLADO Primary Care Provider [phone] Cecelia Newsome PharmD Unavailable [phone] Reason for Visit * Reason Comments Med Refill Encounter Details Date Type Department Care Team (Late st Contact Info) Description 11/15/2024 Refill [facility] MED[facility]INE [address] [place] [address] Humera Abdi, ANP [address] [place] [address] Social History Tobacco Use Types Packs/Day Years Used Date Smoking Tobacco: Never Smokeless Tobacco: Never Alcohol Use Standard Drinks/Week Comments Never 0 (1 standard drink = 0.6 oz pur e alcohol) Depression Answer Date Recorded Patient Health Questionnaire-9 Score 0 11/28/2023 Patient Health Questionnaire-9 Score 0 11/28/2023 Last PHQ-9: Questionnaire Data Not on file 0 11/28/2023 Housing Stability Answer Date Recorded What is your housing situation today? I have austen mathur 11/21/[address] you li ve. Do you have problems with any of the following? None of the above 11/21/2023 Food Insecurity Answer Date Recorded Within the past 12 months, y ou worried that your food would run out before you got money to buy more: Never True 11/21/2023 Within the past 12 months,th e food you bought just didn't last and you didn't have enough money to get more: Never True Transportation Answer Date Recorded In the past 12 months, has l ack of transportation kept you from medical appts, meetings, work or from getting things needed for daily living? No 11/21/2023 Utilities Answer Date Recorded In the past 12 months, has t he electric, gas, oil or water company threatened to shut off services in your home? No 11/21/2023 Depression Answer Date Recorded Patient Health Questionnaire-2 Score 0 11/28/2023 Comments Unknown Sex and Gender Information Value Date Recorded Sex Assigned at Female 07/05/2022 10:14 AM EDT Legal Sex Female 10:14 AM EDT Gender Identity Female 07/05/2022 10:14 AM EDT Sexual Orientation Straight 07/05/2022 10 :14 AM EDT documented as of this encounter Plan of Treatment Upcoming Encounters Date Type Department Care Team (Late st Contact Info) Description 12/28/2024 11:30 AM EDT Telemedicine [address] [address] 09/27/2025 10:30 AM EST Medication Management [address] [address] Ute Grissom PharmD [address] [place] [phone] documented as of this encounter Goals Goal Patient Goal Type Associated Problems Recent Progress Patient-Stated? Author Blood Pressure < 140/90 Blood Pressure 173/66(2024 9:30 AM EDT) No Puia, Cecelia, PharmD Record your blood pressure periodically, as directed Blood Pressure No Puia, Cecelia, PharmD Hemoglobin A1c < 8 Result Component 7.2( 9:32 AM EDT) No Puia, Cecelia, PharmD Record your blood sugar as directed Result Component No Puia, Cecelia, PharmD documented as of this encounter Visit Diagnoses Not on filedocumented in this encounter Additional Health Concerns Assessment Noted Time PHQ-9 Depression Total Score: 0 11/28/19 24 10:14 AM EDT documented as of this encounter Care Teams Self Rising Flour Mixer Relationship Specialty Start Date End Date Name, MD Tristin [address] [place] [phone] PCP - General Family Medicine 04/17/18 Cecelia Newsome, Lorene [address] [place] [phone] Pharmacist Internal Medicine 09/29/21 documented as of this encounter
--- OUTSIDE RECORDS SUMMARY | 2024-12-20 11:48 | XMS_ITS | Encounter Summary ---
Author Organization [facility] Address [address] [place] [address] [address] [place] [address] Care Team Providers Care Block Trimmer Name Role Phone Name, Tristin COLLADO Primary Care Provider [phone] Cecelia Newsome PharmD Unavailable [phone] Reason for Visit * Reason Comments Med Refill Encounter Details Date Type Department Care Team (Late st Contact Info) Description 01/19/2023 Refill [facility] MED[facility]INE [address] [place] [phone] Name, MD Tristin [address] [place] [id number] Social History Tobacco Use Types Packs/Day Years Used Date Smoking Tobacco: Never Smokeless Tobacco: Never Alcohol Use Standard Drinks/Week Comments Never 0 (1 standard drink = 0.6 oz pur e alcohol) Depression Answer Date Recorded Patient Health Questionnaire-9 Score 0 08/17/2022 Depression Answer Date Recorded Patient Health Questionnaire-2 Score 0 08/17/2022 Comments Unknown Sex and Gender Information Value Date Recorded Sex Assigned at Female 07/05/2022 10:14 AM EDT Legal Sex Female 10:14 AM EDT Gender Identity Female 07/05/2022 10:14 AM EDT Sexual Orientation Straight 07/05/2022 10 :14 AM EDT documented as of this encounter Plan of Treatment Upcoming Encounters Date Type Department Care Team (Late st Contact Info) Description 12/28/2024 11:30 AM EDT Telemedicine [address] [phone] 09/27/2025 10:30 AM EST Medication Management [facility] [address] [place] [address] [place] [address] Ute Grissom PharmD [address] [place] [address] documented as of this encounter Goals Goal Patient Goal Type Associated Problems Recent Progress Patient-Stated? Author Blood Pressure < 140/90 Blood Pressure 173/66(2024 9:30 AM EDT) No Cecelia Newsome, PharmD Hemoglobin A1c < 8 Result Component 7.2( 9:32 AM EDT) No Cecelia Newsome, PharmD documented as of this encounter Visit Diagnoses Not on filedocumented in this encounter Additional Health Concerns Assessment Noted Time PHQ-9 Depression Total Score: 0 08/17/20 22 10:24 AM EST documented as of this encounter Care Teams Block Trimmer Relationship Specialty Start Date End Date Name, MD Tristin [address] [place] [address] PCP - General Family Medicine 04/17/18 Cecelia Newsome, PharmD [address] [place] [address] Pharmacist Internal Medicine 09/29/21 documented as of this encounter
--- OUTSIDE RECORDS SUMMARY | 2024-12-20 11:48 | XMS_ITS | Encounter Summary ---
Author Organization [facility] Address [address] [place] [address] [address] [place] [address] Care Team Providers Care Mold Operator Name Role Phone Name, Tristin COLLADO Primary Care Provider [phone] Cecelia Newsome PharmD Unavailable [phone] Reason for Visit * Reason Comments Med Refill Encounter Details Date Type Department Care Team (Late st Contact Info) Description 01/26/2023 Refill [facility] MEDICINE [address] [place] [phone] Name, MD Tristin [address] [place] [phone] Social History Tobacco Use Types Packs/Day Years [...] Info) Description 12/28/2024 11:30 AM EDT Telemedicine [address] [phone] 09/27/2025 10:30 AM EST Medication Management [facility] [address] [place] [address] [place] [address] Ute Grissom PharmD [address] [place] [address] documented as of this encounter Goals Goal [...] documented as of this encounter Care Teams Mold Operator Relationship Specialty Start Date End Date Name, MD Tristin [address] [place] [address] PCP - General Family Medicine 04/17/18 Cecelia Newsome, PharmD [address] [place] [address] Pharmacist Internal Medicine 09/29/21 documented as of this encounter
--- OUTSIDE RECORDS SUMMARY | 2024-12-20 11:48 | XMS_ITS | Clinical Summary ---
Demographics Address [address] [place] [address] Mobile Phone Home Phone Email Address Preferred Language es Marital Status Single Moravian Affiliation Unknown Race Other Race Ethnic Group or Author Organization [facility] Address [address] [place] [address] 7[address] [place] [address] Care Team Providers Care Information Technology Program Manager Name Role Phone Name, Tristin COLLADO Primary Care Provider [phone] Cecelia Newsome PharmD Unavailable [phone] Allergies Active Allergy Reactions Criticality Noted Date Comments Penicillin V 01/25/2012 Medications Lancets (OneTouch Delica Plus [id number]) miscIndications: Type 2 diabetes mellitus with diabetic nephropathy, without long-term current use of insulin ([facility]) TEST BLOOD SUGAR THREE TIMES DAILY 100 each 11 08/10/20 23 Active OneTouch Ultra test strip TEST BLOOD SUGAR 3 TIMES A DAY 100 strip 11 09/13/19 24 Active Alcohol Swabs (Alcohol Prep) 70 % pads USE DIRECTED FOUR TIMES DAILY 100 each 01/23/20 24 Active Advair Diskus 100-50 MCG/ACT aerosol powder INHALE 1 PUFF BY MOUTH TWICE DAILY IN THE MORNING AND IN THE EVENING. RINSE MOUTH AFTER USING. 60 each 01/27/20 24 Active Calcium Carb-Cholecalcif lisha 600-10 MG-MCG tablet TAKE 1 TABLET BY MOUTH TWICE DAILY IN THE MORNING AND IN THE EVENING 180 tablet 3 02/01/20 24 Active pioglitazone (Actos) 15 MG tablet TAKE 1 TABLET BY MOUTH EVERY MORNING 30 tablet 02/27/20 24 Active Blood Pressure Monitoring (Omron 3 Series BP Monitor) deviceIndication s:Essential hypertension Use to check blood pressure once daily as directed 1 each 03/26/20 24 Active albuterol 108 (90 Base) MCG/ACT inhalerIndicatio ns:Asthma, unspecified asthma severity, unspecified whether complicated, unspecified whether persistent INHALE 2 PUFFS BY MOUTH EVERY 4 TO 6 HOURS NEEDED 8.5 g 3 05/18/20 24 Active amLODIPine (Norvasc) 5 MG tabletIndication s:Essential hypertension Take 1 tablet (5 mg) by mouth Once per day. 30 tablet 05/21/20 24 025 Active glipiZIDE XL (Glucotrol XL) 10 MG 24 hr tabletIndication s:Type 2 diabetes mellitus without complication, without long-term current use of insulin (CMS/HCC) TAKE 1 TABLET BY MOUTH EVERY MORNING DO NOT BREAK, CRUSH, DISSOLVE OR CHEW 30 tablet 05/21/20 24 Active glipiZIDE XL (Glucotrol XL) 5 MG 24 hr tabletIndication s:Type 2 diabetes mellitus without complication, without long-term current use of insulin (CMS/HCC) TAKE 1 TABLET BY MOUTH EVERY MORNING (WITH 10 MG TABLET). DO NOT BREAK, CRUSH, DISSOLVE OR CHEW. 30 tablet 05/21/20 24 Active empagliflozin (Jardiance) 25 MGIndications:Di abetes mellitus without complication (CMS/HCC) Take 1 tablet (25 mg) by mouth in the morning. 30 tablet 05/21/20 24 Active linaGLIPtin (Tradjenta) 5 MG tabletIndication s:Type 2 diabetes mellitus without complication, without long-term current use of insulin (CMS/HCC) Take 1 tablet (5 mg) by mouth Once per day. 30 tablet 05/21/20 24 025 Active ibuprofen 600 MG tablet Take 1 tablet (600 mg) by mouth every 6 (six) hours if needed for mild pain for up to 20 doses. 20 tablet 05/28/20 24 Active loratadine (Claritin) 10 MG tablet Take 1 tablet (10 mg) by mouth Once per day. 30 tablet 3 10/01/19 25 Active alendronate (Fosamax) 70 MG tablet take 1 tablet by mouth once a week with 6 to 8 oz of water 30 min before first food of day. do not lie down for 30 minutes 4 tablet 1 10/02/19 25 Active metFORMIN (Glucophage) 500 MG tabletIndication s:Diabetes mellitus without complication (CMS/HCC) TAKE 1 TABLET BY MOUTH TWICE DAILY IN THE MORNING AND IN THE EVENING WITH FOOD 60 tablet 5 10/04/19 25 Active albuterol (2.5 MG/3ML) 0.083% nebulizer solutionIndicati ons:Unspecified asthma, uncomplicated INHALE 1 AMPULE USING A NEBULIZER EVERY 4 HOURS DIRECTED 90 mL 11/17/19 25 Active metoprolol succinate XL (Toprol-XL) 100 MG 24 hr tablet TAKE 1 TABLET BY MOUTH EVERY MORNING 90 tablet 1 12/04/19 25 Active omeprazole (PriLOSEC) [address] capsule TAKE 1 CAPSULE BY MOUTH EVERY MORNING BEFORE BREAKFAST 90 capsule 1 12/04/19 25 Active atorvastatin (Lipitor) 40 MG tabletIndication s:Type 2 diabetes mellitus without complication, without long-term current use of insulin (CMS/[facility]) Take 1 tablet (40 mg) by mouth Once per day. 30 tablet 12/21/19 25 026 Active losartan-hydroCH LOROthiazide (Hyzaar) 100-12.5 MG tabletIndication s:Essential hypertension Take 1 tablet by mouth Once per day. 30 tablet 12/21/19 25 026 Active atorvastatin (Lipitor) 20 MG tabletIndication s:Type 2 diabetes mellitus without complication, without long-term current use of insulin (CMS/HCC) Take 1 tablet (20 mg) by mouth at bedtime. 30 tablet 02/27/20 24 025 Discontinued(D ose adjustment) omeprazole (PriLOSEC) [address] capsule TAKE 1 CAPSULE BY MOUTH EVERY MORNING BEFORE BREAKFAST 90 capsule 1 06/22/20 24 025 Discontinued metoprolol succinate XL (Toprol-XL) 100 MG 24 hr tablet TAKE 1 TABLET BY MOUTH EVERY MORNING 90 tablet 1 06/22/20 24 025 Discontinued losartan (Cozaar) 100 MG tablet Take 1 tablet (100 mg) by mouth Once per day. 30 tablet 09/07/19 025 Discontinued(T herapy completed) Active Problems Problem Noted Date Diagnosed Date Ill-fitting dentures 10/29/2024 Chronic pain of right ankle 07/18/2024 Assessment & Plan (07/18/2024 12:42 PM EST): Patient will continue with tylenol prn for pain Patient will start ibuprofen 600 mg TID prn for pain Patient will continue with alternating cold/heat therapy Patient will take terbinafine for onychomycosis, considered consultation with candy department manager however am aware of the limitations surrounding obtaining podiatry care in this location. Patient will f/u with ortho, referral placed today Alveolitis of maxilla 04/20/2024 Periodontal disease 01/24/2024 Edentulous maxilla 01/12/2024 Missing teeth, acquired 12/20/2023 Dental attrition, excessive 10/21/2023 Dental abscess 05/31/2023 Chronic left shoulder pain 08/09/2022 Fatty liver disease, nonalcoholic 08/09/2022 Diabetic nephropathy with proteinuria 01/04/2019 LFT elevation 01/04/2019 Transaminitis 12/15/2018 Osteoarthritis involving mul tiple joints on both sides of body 01/24/2018 Bilateral bunions 03/25/2017 Asthma 03/25/2017 Coronary arteriosclerosis 03/25/2017 Essential hypertension 03/25/2017 Hyperlipidemia 03/25/2017 Onychomycosis 03/25/2017 Seasonal allergic rhinitis 03/25/2017 Type 2 diabetes mellitus 03/25/2017 Wears partial dentures 03/25/2017 Nasal polyp 03/25/2017 Closed fracture of vertebral column 02/29/2012 Obesity 02/07/2012 Osteoporosis 01/25/2012 Malignant tumor of breast 09/05/2006 Encounters Date Type Department Care Team Description 12/20/2024 9:15 AM EDT Office Visit [facility] [address] [place] [phone] Tristin Fregoso MD Type 2 diabetes mellitus without complication, without long-term current use of insulin ([facility]) (Primary Dx); Essential hypertension; Acute bilateral low back pain without sciatica 12/20/2024 Travel 12/17/2024 Telephone [facility] [address] [place], [place] [phone] Tristin Fregoso MD chart prep 12/11/2024 Patient Outreach [facility] [address] [place], [place] [phone] Tristin Fregoso MD Pre-visit Planning (SDOH screening negative and tobacco screening negative) 12/03/2024 Refill [facility] [address] [place], [place] [phone] Tristin Fregoso MD 11/15/2024 Refill [facility] [address] [place] [address] Humera Abdi ANP 11/15/2024 Refill [facility] [address] [place] [address] NameTristin MD Unspecified asthma, uncomplicated 10/29/2024 1:00 PM EST Office Visit [facility] ADULT DENTAL [address] [place] [address] Rolando Winkler DDS Ill-fitting dentures (Primary Dx) 10/04/2024 Refill [facility] [address] [place] [address] NameTristin MD Diabetes mellitus without complication ([facility]) 10/02/2024 Refill [facility] [address] [place] [address] NameTristin MD 10/01/2024 Refill [facility] [address] [place], [place] [phone] NameTristin MD 09/30/2024 Telephone [facility] [address] [place] [address] Yulissa Damon, PharmD 09/28/2024 Travel 09/27/2024 Telephone [facility] [address] [place] [address] Trsitin Fregoso MD 09/21/2024 10:30 AM EST Clinical Support [facility] [address] [place], [place] [phone] Staci Rosales, RN Essential hypertension from Last 3 Months Immunizations Name Administration Dates Next Due Influenza High-dose Quadrivalent Preservative Fr ee 06/08/2022 Influenza injectable quadriv alent IIV4 with preservative 10/21/2017 Influenza, IIV3, injectable 07/26/2014, 1 Influenza, Split (incl. purified surface antigen ) 07/23/2013 Pneumococcal Conjugate PCV 13 10/21/2017 Pneumococcal Polysaccharide PPSV23 05/28/2010 Td (adult), 5 Lf tetanus tox oid, preservative free, adsorbed 09/04/2014 Tdap 02/16/2013 Social History Tobacco Use Types Packs/Day Years Used Date Smoking Tobacco: Never Smokeless Tobacco: Never Tobacco Cessation:Counseling Given: Not Answered Alcohol Use Standard Drinks/Week Comments Never 0 (1 standard drink = 0.6 oz pur e alcohol) Depression Answer Date Recorded Patient Health Questionnaire-9 Score 0 11/28/2023 Patient Health Questionnaire-9 Score 0 11/28/2023 Last PHQ-9: Questionnaire Data Not on file 0 11/28/2023 Housing Stability Answer Date Recorded What is your housing situation today? I have austen mathur 12/11/[address] you li ve. Do you have problems with any of the following? Pests such as bugs, ants, or mice 12/11/2024 Food Insecurity Answer Date Recorded Within the past 12 months, y ou worried that your food would run out before you got money to buy more: Never True 12/11/2024 Within the past 12 months,th e food you bought just didn't last and you didn't have enough money to get more: Never True 04/2025 Transportation Answer Date Recorded In the past 12 months, has l ack of transportation kept you from medical appts, meetings, work or from getting things needed for daily living? No 12/11/2024 Utilities Answer Date Recorded In the past 12 months, has t he electric, gas, oil or water company threatened to shut off services in your home? No 12/11/2024 Depression Answer Date Recorded Patient Health Questionnaire-2 Score 0 11/28/2023 Internet Access Answer Date Recorded Internet Access Q1 Yes 12/11/2024 Internet Access Q2 Not on file 12/11/2024 Comments Unknown Sex and Gender Information Value Date Recorded Sex Assigned at Female 07/05/2022 10:14 AM EDT Legal Sex Female 10:14 AM EDT Gender Identity Female 07/05/2022 10:14 AM EDT Sexual Orientation Straight 07/05/2022 10 :14 AM EDT Last Filed Vital Signs Vital Sign Reading Time Taken Comments Blood Pressure 173/66 12/20/2024 9:30 AM EDT Pulse 78 12/20/2024 9:30 AM EDT Temperature 36.1 ??C (97 ??F) 12/20/2024 9:30 AM EDT Respiratory Rate 12 12/20/2024 9:30 AM EDT Oxygen Saturation 99% 12/20/2024 9:30 AM EDT Inhaled Oxygen Concentration - - Weight 49.3 kg (108 lb 9.6 oz) 12/20/2024 9:30 A M EDT Height 129.5 cm (4' 3 ) 12/20/2024 9:30 AM EDT Body Mass Index 29.36 12/20/2024 9:30 AM EDT Plan of Treatment Upcoming Encounters Date Type Department Care Team (Late st Contact Info) Description 12/28/2024 11:30 AM EDT Telemedicine [facility] MED[facility]INE [address] [place] [phone] 09/27/2025 10:30 AM EST Medication Management [facility] [address] [place] [address] Ute Grissom, PharmD [address] [place] [address] Health Maintenance Due Date Last Done Comments Dental Prophylaxis 1945 Dental X-Ray: Full Mouth 1945 Hepatitis A Vaccines (1 of 2 - Risk 2-dose series) 1965 Zoster Vaccines (1 of 2) 1996 Hepatitis B Vaccines (1 of 3 - Risk 3-dose series) 2006 RSV Patients and Patients Aged 60 years or older (1 - 1-dose 75+ series) 2021 Pneumococcal Vaccine: 50+ Years (3 of 3 - PCV20 or PCV21) 10/21/2022 10/21/2017, 05/28/2010 COVID-19 Vaccine ( - season) 2024 Influenza Vaccine (#1) 2024 , 10/21/2017, 07/26/2014, Additional history exists Dental Oral Exam 06/21/2024 12/20/2023 DTaP/Tdap/Td Vaccines (3 - Td or Tdap) 09/04/2024 09/04/2014, 02/16/2013 Lipid Panel 09/28/2024 09/28/2023, 0709/2022, 10/14/2022, Additional history exists Depression Screening 11/27/2024 11/28/2023, 11/28/19 Dental X-Ray: Bitewings 12/20/2024 12/20/2023 Alcohol/Substance Use Screening 02/22/2025 02/23/2024 Diabetes: Hemoglobin A1C 03/21/2025 025, 09/07/2024, 05/21/2024, Additional history exists Eye Exam 05/18/2025 05/18/2024, 05/06, 05/18/2024, Additional history exists Diabetes: Foot Exam 09/07/2025 09/07/2024, 09/07/2024, 09/07/2024, Additional history exists SDOH Screening 12/11/2025 12/11/2024 Tobacco Screening 12/20/2025 12/20/2024 Hepatitis C Screening Completed 02/23/2024 HIB Vaccines Aged Out No longer eligi ble based on patient's age to complete this topic HPV Vaccines Aged Out No longer eligi ble based on patient's age to complete this topic IPV Vaccines Aged Out No longer eligi ble based on patient's age to complete this topic Meningococcal Vaccine Aged Out No stephani yari eligible based on patient's age to complete this topic RSV under 20 months Aged Out No longe r eligible based on patient's age to complete this topic Rotavirus Vaccines Aged Out No longer eligible based on patient's age to complete this topic Goals Goal Patient Goal Type Associated Problems Recent Progress Patient-Stated? Author Blood Pressure < 140/90 Blood Pressure 173/66(2024 9:30 AM EDT) No Puia, Cecelia, PharmD Record your blood pressure periodically, as directed Blood Pressure No Josué Newsomeyssa, PharmD Hemoglobin A1c < 8 Result Component 7.2( 9:32 AM EDT) No Puia, Cecelia, PharmD Record your blood sugar as directed Result Component No Puia, Cecelia, PharmD Procedures Procedure Name Priority Date/Time Associated Diagnosis Comments POCT GLYCATED HEMOGLOBIN, TOTAL Routine 12/20/2024 9:32 AM EDT Type 2 diabetes mellitus without complication, without long-term current use of insulin ([facility]) POCT GLUCOSE Routine 12/20/2024 9:32 AM EDT Type 2 diabetes mellitus without complication, without long-term current use of insulin ([facility]) DENTURE ADJUSTMENT Routine 10/29/2024 1: 00 PM EST NO CHARGE VISIT Routine 10/29/2024 1:00 PM EST HEPATITIS C AB W/REFL TO HCV RNA, QN, PCR Routine 02/23/2024 11:57 AM EDT Need for hepatitis C screening test BITEWINGS - 4 RADIOGRAPHIC IMAGES Routine 12/20/2023 1:00 PM EDT Missing teeth, acquired PERIODIC ORAL EVALUATION - ESTABLISHED PATIENT Routine 12/20/2023 1:00 PM EDT LIPID PANEL, STANDARD Routine 09/28/2023 8:30 AM EST DIABETES EYE EXAM Routine 01/21/2022 from Last 3 Months or Most Recently Relevant to Health Maintenance Results * (ABNORMAL) POCT HGB A1C (12/20/2024 9:32 AM EDT) Hemoglobin A1C 7.2(A) 4.0 - 6.0 % QC Media Lot # [id number] Lot# Expiration Date [id number] Blood 12/20/2024 9:32 AM EDT us Tristin Fregoso MD POINT OF CARE TEST ENTER/EDIT OR DERABLES Final Result * POCT Glucose (12/20/2024 9:32 AM EDT) Glucose Blood, POC 124 60 - 200 mg/dL QC Media Lot # [id number] Lot# Expiration Date [id number] Blood Capillary blood specimen / Unknown 12/20/2024 9:32 AM EDT us Tristin Fregoso MD POINT OF CARE TEST ENTER/EDIT OR DERABLES Final Result * Hepatitis C Antibody with Reflex to HCV, RNA, Quantitative, Real-Time PCR (02/23/2024 11:57 AM EDT) Hepatitis C Antibody Nonreactive Nonreactive [facility] Comment:Antibodies to HCV no t detected; does not exclude early acuteHCV infection. Blood Venous blood specimen / Unknown 02/23/2024 11:57 AM EDT 02/23/2024 1:01 PM EDT us Tristin Fregoso MD LAB BLOOD ORDERABLES Final Resul t Performing Organization Address [facility] Co de Phone Number [facility] [address] [place] [phone] * Lipid Panel, Standard (09/28/2023 8:30 AM EST) Triglycerides 129 <150 mg/dL [facility] Comment:Desirable Triglyceri de: less than 150 mg/dLBorderline High Triglyceride 150-199 mg/dLHigh Triglyceride: 200-499 mg/dLVery High Triglyceride: greater than or equal to 5OO mg/dL Cholesterol 168 <200 mg/dL [facility] Comment:Desirable Cholestero l: less than 200 mg/dLBorderline High Cholesterol: 200-239 mg/dLHigh Cholesterol: greater than 239 mg/dL LDL Cholesterol Calculated 90 <100 mg/dL [facility] Comment:Desirable LDL: less than 100 mg/dLNear Optimal/Above Optimal LDL: 110- 129 mg/dLBorderline High LDL: 130-159 mg/dLHigh LDL: 160-189 mg/dLVery High LDL: greater than or equal to 190 mg/dL HDL Cholesterol 53 >40 mg/dL [facility] Comment:Desirable HDL: great er than 40 mg/dL Note: This HDL assay may give artificially low results in patients with liver disease. 09/28/2023 8:30 AM EST 09/28/2023 11:16 AM EST us Tristin Fregoso MD LAB BLOOD ORDERABLES Final Resul t Performing Organization Address [facility]/ZIP Co de Phone Number [facility] [address] [place] [phone] * Diabetes Eye Exam (01/21/2022) Eye Exam Normal Normal us Tristin Name MD HEALTH MAINTENANCE Final Result from Last 3 Months or Most Recently Relevant to Health Maintenance Insurance * Guarantor: Gosia Collier Account Type Relation to Patient Date of Phone Billing Address Personal/Family Self 1945 [email or web address] [place] [address] [facility] DUAL COMPLETE DENTAL [facility] * Guarantor: Gosia Collier Account Type Relation to Patient Date of Phone Billing Address Personal/Family Self [email or web address] [place] [address] * Guarantor: Gosia Collier Account Type Relation to Patient Date of Phone Billing Address Personal[facility]Family [facility] [address] [place] [address] * Guarantor: Gosia Collier Account Type Relation to Patient Date of Phone Billing Address Personal/Family Self [address] [facility] [address] [place] [address] Care Teams Information Technology Program Manager Relationship Specialty Start Date End Date Name, MD Tristin [address] [place] [address] PCP - General Family Medicine 04/17/18 Cecelia Newsome, Lorene [address] [place] [address] Pharmacist Internal Medicine 09/29/21
--- OUTSIDE RECORDS SUMMARY | 2024-12-20 11:48 | XMS_ITS | Encounter Summary ---
Author Organization [facility] Address [address] [facility] [address] [place] [address] Care Team Providers Care Heavy Mobile Equipment Repairer Name Role Phone Name, Tristin COLLADO Primary Care Provider [phone] Cecelia Newsome PharmD Unavailable [phone] Reason for Visit * Reason Comments Med Refill Encounter Details Date Type Department Care Team ([facility] st Contact Info) Description 08/16/2023 Refill [facility] [address] [place] [address] Cecelia Newsome, PharmD [address] [place], [place] [phone] Type 2 diabetes mellitus without complication, without long-term current use of insulin ([facility]) Social History Tobacco Use Types Packs/Day Years Used Date Smoking Tobacco: Never Smokeless Tobacco: Never Alcohol Use Standard Drinks/Week Comments Never 0 (1 standard drink = 0.6 oz pur e alcohol) Depression Answer Date Recorded Patient Health Questionnaire-9 Score 0 08/17/2022 Housing Stability Answer Date Recorded What is your housing situation today? I have austen mathur 06/20/[address] you li ve. Do you have problems with any of the following? None of the above 06/20/2023 Food Insecurity Answer Date Recorded Within the past 12 months, y ou worried that your food would run out before you got money to buy more: Never True 06/20/2023 Within the past 12 months,th e food you bought just didn't last and you didn't have enough money to get more: Never True Transportation Answer Date Recorded In the past 12 months, has l ack of transportation kept you from medical appts, meetings, work or from getting things needed for daily living? No 06/20/2023 Utilities Answer Date Recorded In the past 12 months, has t he electric, gas, oil or water company threatened to shut off services in your home? No 06/20/2023 Depression Answer Date Recorded Patient Health Questionnaire-2 [...] Info) Description 12/28/2024 11:30 AM EDT Telemedicine [facility] MED[facility] [address] [place] [phone] 09/27/2025 10:30 AM EST Medication Management [facility] [address] [place] [phone] Ute Grissom PharmD [address] [place] [phone] documented as of this encounter Goals Goal Patient Goal Type Associated Problems Recent Progress Patient-Stated? Author Blood Pressure < 140/90 Blood Pressure 173/66(2024 9:30 AM EDT) No Puia, Cecelia, PharmD Hemoglobin A1c < 8 Result Component 7.2( 9:32 AM EDT) No Puia, Cecelia, PharmD documented as of this encounter Visit Diagnoses Diagnosis Type 2 diabetes mellitus without complication, without long-term current use of insulin ([facility]) documented in this encounter Additional Health Concerns Assessment Noted Time PHQ-9 Depression Total Score: 0 08/17/20 22 10:24 AM EST documented as of this encounter Care Teams Heavy Mobile Equipment Repairer Relationship Specialty Start Date End Date Name, MD Tristin [address] [place] [phone] PCP - General Family Medicine 04/17/18 Puia, Cecelia, PharmD [address] [place] [phone] Pharmacist Internal Medicine 09/29/21 documented as of this encounter
--- OUTSIDE RECORDS SUMMARY | 2024-12-20 11:48 | XMS_ITS | Encounter Summary ---
Author Organization [employer] Address [address] [place] [address] Care Team Providers Care Air Valve Mechanic Name Role Phone NameTristin MD Primary Care Provider [phone] Cecelia Newsome PharmD Unavailable [phone] Reason for Visit * Reason Comments Diabetes Encounter Details Date Type Department Care Team ([facility] st Contact Info) Description 12/20/2024 9:15 AM EDT Office Visit [facility] MEDICINE [address], [place] [phone] Name, MD Tristin [address] [place] [address] Type 2 diabetes mellitus without complication, without long-term current use of insulin ([facility]) (Primary Dx); Essential hypertension; Acute bilateral low back pain without sciatica Social History Tobacco Use Types Packs/Day Years [...] AM EDT documented as of this encounter Last Filed Vital Signs Vital Sign Reading [...] Mass Index 29.36 12/20/2024 9:30 AM EDT documented in this encounter Progress Notes * Tristin Fregoso MD - 12/20/2024 9:15 AM EDT Subjective Patient ID: Gosia Collier is a 79 y.o. female who presents for Diabetes. Patient comes for a follow up visit and she is accompanied by her ELECTRONIC DEVICE REPAIRER She is doing well. She is using her meds from the [facility] No chest pain or SOB, She has been having low back pain for the past 3 days. She does not have leg radiculopathy and no history of trauma. She has a personal history of osteoporosis. She does not bring her glucose meter. Blood sugar control is acceptable based on her hemoglobin A1c. Her BP is elevated today and has been running high at home with systolics in the high 140s and low 150s. Review of Systems Constitutional: Negative for chills and fever. HENT: Negative for sore throat. Respiratory: Negative for cough, shortness of breath and wheezing. Cardiovascular: Negative for chest pain, palpitations and leg swelling. Gastrointestinal: Negative for abdominal pain. Musculoskeletal: Positive for back pain. Neurological: Negative for weakness. Visit Vitals BP (!) 173/66 (BP Location: Right arm, Patient Position: Sitting, BP Cuff Size: Adult) Pulse 78 Temp 97 ??F (36.1 ??C) (Temporal) Resp 12 Ht 4' 3 (1.295 m) Wt 108 lb 9.6 oz (49.3 kg) SpO2 99% BMI 29.36 kg/m?? Smoking Status Never BSA 1.33 m?? Objective Physical Exam Constitutional: Appearance: Normal appearance. Cardiovascular: Rate and Rhythm: Normal rate and regular rhythm. Heart sounds: No murmur heard. No gallop. Pulmonary: Effort: Pulmonary effort is normal. No respiratory distress. Breath sounds: Normal breath sounds. No wheezing. Musculoskeletal: Right lower leg: No edema. Left lower leg: No edema. Neurological: Mental Status: She is alert. Lab Results Component Value Date HGBA1C 7.2 (A) 12/20/2024 HGBA1C 6.8 (A) 09/07/2024 HGBA1C 7.2 (A) 05/21/2024 HGBA1C 8.0 (A) 02/23/2024 HGBA1C 7.5 (A) 09/26/2023 HGBA1C 7.6 (A) 06/21/2023 HGBA1C 8.4 (A) 03/14/2023 HGBA1C 6.4 (A) 11/09/2022 HGBA1C 9.4 (A) 08/17/2022 HGBA1C 9.2 (H) 01/09/2021 Current Outpatient Medications on File Prior to Visit Medication Sig Dispense Refill Advair Diskus 100-50 MCG/ACT aerosol powder INHALE 1 PUFF BY MOUTH TWICE DAILY IN THE MORNING AND IN THE EVENING. RINSE MOUTH AFTER USING. 60 each 11 albuterol (2.5 MG/3ML) 0.083% nebulizer solution INHALE 1 AMPULE USING A NEBULIZER EVERY 4 HOURS ASDIRECTED 90 mL 0 albuterol 108 (90 Base) MCG/ACT inhaler INHALE 2 PUFFS BY MOUTH EVERY 4 TO 6 HOURS NEEDED 8.5 g 3 Alcohol Swabs (Alcohol Prep) 70 % pads USE DIRECTED FOUR TIMES DAILY 100 each 11 alendronate (Fosamax) 70 MG tablet take 1 tablet by mouth once a week with 6 to 8 oz of water 30 min before first food of day. do not lie down for 30 minutes 4 tablet 1 amLODIPine (Norvasc) 5 MG tablet Take 1 tablet (5 mg) by mouth Once per day. 30 tablet 11 Blood Pressure Monitoring (Omron 3 Series BP Monitor) device Use to check blood pressure once dailyas directed 1 each 0 Calcium Carb-Cholecalciferol 600-10 MG-MCG tablet TAKE 1 TABLET BY MOUTH TWICE DAILY IN THE MORNINGAND IN THE EVENING 180 tablet 3 empagliflozin (Jardiance) 25 MG Take 1 tablet (25 mg) by mouth in the morning. 30 tablet 11 glipiZIDE XL (Glucotrol XL) 10 MG 24 hr tablet TAKE 1 TABLET BY MOUTH EVERY MORNING DO NOT BREAK, CRUSH, DISSOLVE OR CHEW 30 tablet 11 glipiZIDE XL (Glucotrol XL) 5 MG 24 hr tablet TAKE 1 TABLET BY MOUTH EVERY MORNING (WITH 10 MG TABLET). DO NOT BREAK, CRUSH, DISSOLVE OR CHEW. 30 tablet 11 ibuprofen 600 MG tablet Take 1 tablet (600 mg) by mouth every 6 (six) hours if needed for mild painfor up to 20 doses. 20 tablet 0 Lancets (OneTouch Delica Plus [id number]) [facility] TEST BLOOD SUGAR THREE TIMES DAILY 100 each 11 linaGLIPtin (Tradjenta) 5 MG tablet Take 1 tablet (5 mg) by mouth Once per day. 30 tablet 11 loratadine (Claritin) 10 MG tablet Take 1 tablet (10 mg) by mouth Once per day. 30 tablet 3 metFORMIN (Glucophage) 500 MG tablet TAKE 1 TABLET BY MOUTH TWICE DAILY IN THE MORNING AND IN THE EVENING WITH FOOD 60 tablet 5 metoprolol succinate XL (Toprol-XL) 100 MG 24 hr tablet TAKE 1 TABLET BY MOUTH EVERY MORNING 90 tablet 1 omeprazole (PriLOSEC) [address] capsule TAKE 1 CAPSULE BY MOUTH EVERY MORNING BEFORE BREAKFAST 90 capsule 1 OneTouch Ultra test strip TEST BLOOD SUGAR 3 TIMES A DAY 100 strip 11 pioglitazone (Actos) 15 MG tablet TAKE 1 TABLET BY MOUTH EVERY MORNING 30 tablet 11 [DISCONTINUED] atorvastatin (Lipitor) 20 MG tablet Take 1 tablet (20 mg) by mouth at bedtime. 30 tablet 11 [DISCONTINUED] losartan (Cozaar) 100 MG tablet Take 1 tablet (100 mg) by mouth Once per day. 30 tablet 11 No current facility-administered medications on file prior to visit. Assessment/Plan Diagnoses and all orders for this visit: Type 2 diabetes mellitus without complication, without long-term current use of insulin ([facility]) Comments: I did not recommend any medication changes. She is reminded to avoid sweets. I will double her doseof statin to achieve goal of LDL below 55 Orders: - POCT Glucose - POCT HGB A1C - atorvastatin (Lipitor) 40 MG tablet; Take 1 tablet (40 mg) by mouth Once per day. - Comprehensive Metabolic Panel; Future - Lipid Panel, Standard; Future Essential hypertension Comments: I will switch the patient from plain losartan to losartan/HCTZ. Check blood work next week, check BP at home daily, follow-up televisit with team nurse next week for BP recheck Orders: - losartan-hydroCHLOROthiazide (Hyzaar) 100-12.5 MG tablet; Take 1 tablet by mouth Once per day. - Comprehensive Metabolic Panel; Future - Lipid Panel, Standard; Future Acute bilateral low back pain without sciatica Comments: I recommended acetaminophen 3 times a day as needed. Check x-ray of the lumbar spine. Orders: - XR Lumbar Spine Complete 4+ Views; Future documented in this encounter Plan of Treatment Upcoming Encounters Date Type Department Care Team (Late st Contact Info) Description 12/28/2024 11:30 AM EDT Telemedicine [facility] MEDICINE [address] [place] [phone] 09/27/2025 10:30 AM EST Medication Management [facility] MEDICINE [address] [place] [phone] Ute Grissom PharmD [address] [place] [address] Scheduled Orders Name Type Priority Associated Diagnoses Orde r Schedule Comprehensive Metabolic Panel Lab Routine Type 2 diabetes mellitus without complication, without long-term current use of insulin ([facility]) Essential hypertension Expected: 12/20/2024 (Approximate), Expires: 12/20/2025 Lipid Panel, Standard Lab Routine Type 2 diabetes mellitus without complication, without long-term current use of insulin ([facility]) Essential hypertension Expected: 12/20/2024 (Approximate), Expires: 12/20/2025 XR Lumbar Spine Complete 4+ Views Imaging Routine Acute bilateral low back pain without sciatica Expected: 12/20/2024, Expires: 12/20/2025 documented as of this encounter Goals Goal Patient Goal Type Associated Problems Recent Progress Patient-Stated? Author Blood Pressure < 140/90 Blood Pressure 173/66(2024 9:30 AM EDT) No Cecelia Newsome PharmD Record your blood pressure periodically, as directed Blood Pressure No Cecelia Newsome, PharmD Hemoglobin A1c < 8 Result Component 7.2( 9:32 AM EDT) No Cecelia Newsome PharmD Record your blood sugar as directed Result Component No Cecelia Newsome, PharmD documented as of this encounter Procedures Procedure Name Priority Date/Time Associated Diagnosis Comments POCT GLYCATED HEMOGLOBIN, TOTAL Routine 12/20/2024 9:32 AM EDT Type 2 diabetes mellitus without complication, without long-term current use of insulin ([facility]) POCT GLUCOSE Routine 12/20/2024 9:32 AM EDT Type 2 diabetes mellitus without complication, without long-term current use of insulin ([facility]) documented in this encounter Results * (ABNORMAL) POCT HGB A1C (12/20/2024 [...] Media Lot # [id number] Lot# Expiration Date 82, Blood Capillary blood specimen / Unknown 12/20/2024 9:32 AM EDT us Crow Name POINT OF CARE TEST ENTER/EDIT OR DERABLES Final Result documented in this encounter Visit Diagnoses Diagnosis Type 2 diabetes mellitus without complication, without long-term current use of insulin ([facility])- Primary Essential hypertension Unspecified essential hypertension Acute bilateral low back pain without sciatica documented in this encounter Additional Health Concerns Assessment Noted Time PHQ-9 Depression Total Score: 0 11/28/19 24 10:14 AM EDT documented as of this encounter Care Teams Air Valve Mechanic Relationship Specialty Start Date End Date Name, MD rTistin [address] [place] [address] PCP - General Family Medicine 04/17/18 Cecelia Newsome PharmD [address] [place] [address] Pharmacist Internal Medicine 09/29/21 documented as of this encounter
--- OUTSIDE RECORDS SUMMARY | 2024-12-20 11:48 | XMS_ITS | Encounter Summary ---
Demographics Address [address] [place] [address] Mobile Phone Home Phone Email Address Preferred Language es Marital Status Single Adventist Affiliation Unknown Race Other Race Ethnic Group or Author Organization [employer] Address [address] [place] [address] Care Team Providers Care Farmworker Bulbs Name Role Phone Name, Tristin COLLADO Primary Care Provider [phone] Cecelia Newsome PharmD Unavailable [phone] Encounter Details Date Type Department Care Team (Latest Contact Info) Description 12/20/2024 Travel Social History Tobacco Use Types Packs/Day Years [...] Info) Description 12/28/2024 11:30 AM EDT Telemedicine [facility] MEDICINE [address] [place] [phone] 09/27/2025 10:30 AM EST Medication Management [address] [address] Ute Grissom PharmD [address] [place] [phone] documented as of this encounter Goals Goal [...] documented as of this encounter Care Teams Farmworker Bulbs Relationship Specialty Start Date End Date Name, MD Tristin [address] [place] [address] PCP - General Family Medicine 04/17/18 Puia, Cecelia, PharmD [address] [place] [phone] Pharmacist Internal Medicine 09/29/21 documented as of this encounter
--- OUTSIDE RECORDS SUMMARY | 2024-12-20 11:48 | XMS_ITS | Encounter Summary ---
Author Organization [employer] Address [address] [place] [address] Care Team Providers Care Rare/Endangered Species Specialist Name Role Phone Name, Tristin COLLADO Primary Care Provider [phone] Cecelia Newsome PharmD Unavailable [phone] Reason for Visit * Reason Onset Date Comments chart prep 12/17/2024 Encounter Details Date Type Department Care Team ([facility] st Contact Info) Description 12/17/2024 Telephone [facility] [address] [place], [place] [phone] Name, MD Tristin [address] [place] [address] chart prep Social History Tobacco Use Types Packs/Day Years [...] AM EDT documented as of this encounter Miscellaneous Notes * Telephone Encounter - Debbie Collier [place] - 12/17/2024 11:19 AM EDT Chart Prep Labs: done Images: done Referrals: complete Vaccines due: yes Covid, tdap, hep a, hep b, pcv20, flu, rsv, and zoster. Screenings: not applicable Overdue care gaps: A1c, Glucose, SBIRT, and Disability screen documented in this encounter Plan of Treatment Upcoming Encounters Date Type Department Care Team (Late st Contact Info) Description 12/28/2024 11:30 AM EDT Telemedicine [facility] MEDICINE [address] [place] [phone] 09/27/2025 10:30 AM EST Medication Management [facility] MEDICINE [address] [place] [phone] Uet Grissom, PharmD [address] [place] [address] documented as of this encounter Goals Goal [...] documented as of this encounter Care Teams Rare/Endangered Species Specialist Relationship Specialty Start Date End Date Name, MD Tristin [address] [place] [address] PCP - General Family Medicine 04/17/18 Puia, Cecelia, PharmD [address] [place] [address] Pharmacist Internal Medicine 09/29/21 documented as of this encounter
--- OUTSIDE RECORDS SUMMARY | 2024-12-20 11:48 | XMS_ITS ---
Author Name Hercules VALVE LAPPER,STRETCHING PRESS OPERATOR,FN P,ETHNOARCHAEOLOGIST, Idalia Address [address] [place] [id number] Phone [phone] Organization [facility] Care Team Providers Care Commissary Officer Name Role Phone Idalia Hercules Unavailable [phone] NameTristin Unavailable [phone] Reason for Referral Not Available Allergies, adverse reactions, alerts Allergen Type Reaction Severity Status Onset Date Influenza Vaccines Allergy to substance (disorder) shortness of breath Unknown Active N/A Penicillin Allergy to substance (disorder) Hives Moderate Active N/A History of medication use Medication Class Instructions Start Date End Date SM Alcohol Prep 70 % Pad USE DIRECTED FOUR TIMES DAILY 2021-04-06 No Data Available Alendronate Sodium 70 mg Tab take 1 tabl et once a week with 6 to 8 oz of water 30 min before first food of day. do not lie down for 30 minutes (OSTEOPOROSIS) 2021-03-11 2024-09-25 Diclofenac Sodium 1 % Gel APPLY 2 GRAMS TOPICALLY TO AFFECTED AREA(S) TWICE DAILY 2021-12-24 No Data Available Fluticasone Propionate 50 MCG/ACT Suspension USE 1 SPRAY IN EACH NOSTRIL EVERY DAY NEEDED FOR ALLERGIES 2021-06-11 No Data Available Jardiance 25 mg Tab TAKE 1 TABLET BY VINCE TH EVERY MORNING 2022-01-26 No Data Available SM All Day Allergy Relief 10 mg Tab TAKE 1 TABLET BY MOUTH EVERY MORNING 2021-03-13 No Data Available Losartan Potassium 50 mg Tab TAKE 1 TABL ET BY MOUTH EVERY EVENING 2021-12-29 No Data Available metFORMIN 500 mg Tab TAKE 1 TABLET BY MO [facility] TWICE DAILY IN THE MORNING AND IN THE EVENING WITH MEALS 2021-12-28 No Data Available OneTouch Delica Plus [id number] Miscellaneous TEST BLOOD SUGAR THREE TIMES DAILY 2021-11-24 No Data Available OneTouch Ultra Strip TEST BLOOD SUGAR 3 TIMES A DAY 2022-01-29 No Data Available Advair Diskus 100-50 MCG/ACT Aerosol Powder Breath Activated INHALE 1 PUFF TWICE DAILY IN THE MORNING AND IN THE EVENING. RINSE MOUTH AFTER USING. 2021-04-09 No Data Available amLODIPine Besylate 2.5 mg Tab TAKE 1 TABLET BY MOUTH EVERY MORNING 2022-01-12 No Data Available glipiZIDE ER 2.5 mg Tab ER 24hr TAKE 1 TABLET BY MOUTH EVERY MORNING 2022-02-26 No Data Available Metoprolol Succinate ER 100 mg Tab ER 24hr TAKE 1 TABLET BY MOUTH EVERY MORNING 2022-02-26 No Data Available Omeprazole 20 mg Cap delayed rel TAKE 1 CAPSULE BY MOUTH EVERY MORNING BEFORE A MEAL 2022-02-26 No Data Available Simvastatin 10 mg Tab TAKE 1 TABLET BY [facility] AT BEDTIME (for cholesterol) 2022-02-26 2023-04-11 Acetaminophen Extra Strength 500 mg Tab TAKE 1 TABLET BY MOUTH EVERY 4 TO 6 HOURS NEEDED. NO MORE THAN 8 TABLETS PER 24 HOURS 2022-03-10 No Data Available Clindamycin 150 mg Cap TAKE 1 CAPSULE BY MOUTH EVERY 8 HOURS UNTIL FINISHED 2022-03-10 No Data Available calcium 600 mg (as carbonate)-vitamin D3 10 mcg (400 unit) tablet TAKE 1 TABLET BY MOUTH TWICE DAILY IN THE MORNING AND IN THE EVENING 2022-03-26 No Data Available Letrozole 2.5 mg Tab TAKE 1 TABLET BY [facility] EVERY DAY 2021-12-21 2024-09-25 Medbox Status USE DIRECTED 2022-07-19 No Data Lizeth ilable Albuterol Sulfate (2.5 mg/3ML) 0.083% Nebulization Solution USE 1 AMPULE USING A NEBULIZER EVERY 4 HOURS DIRECTED 2022-11-05 No Data Available Ibuprofen 600 mg Tab TAKE 1 TABLET BY MO [facility] EVERY 8 HOURS NEEDED FOR MILD PAIN 2022-11-09 No Data Available [employer] Ultra 2 w/Device Kit USE DIR ECTED THREE TIMES DAILY 2022-11-09 No Data Available Atorvastatin Calcium 20 mg Tab TAKE 1 TABLET BY MOUTH AT BEDTIME (CHOLESTEROL) 2023-03-10 No Data Available Pioglitazone 15 mg Tab TAKE 1 TABLET BY MOUTH EVERY MORNING 2023-03-14 No Data Available ALCOHOL SWABS USE DIRECTED FOUR TIMES DAILY 2023-02-10 No Data Available Chlorhexidine Gluconate 0.12 % Solution SWISH AND SPIT OUT 15 ML BY MOUTH NEEDED DIRECTED FOR WOUND UP TO 14 DAYS 2023-05-31 No Data Available LORazepam 0.5 mg Tab TAKE 1 TABLET BY [facility] 30 MINUTES BEFORE DENTAL PROCEDURE 2023-07-07 2023-11-14 Tradjenta 5 mg Tab TAKE 1 TABLET BY VINCE TH EVERY DAY 2024-03-26 No Data Available Problem List Problem Status Onset Date Resolved Date Other problems related to [facility] facilities and other health care Active 2023-11-14 N/A GERD (gastroesophageal reflux disease) Active 27-07-15 N/A Hx of breast cancerHistory o f lumpectomy of both breasts Active 2022-07-20 N/A COPD with Asthma Active 2022-07-21 N/A OsteoporosisOsteoarthritis Active 2022-07-20 N /A Type 2 diabetes mellitus with hyperlipidemia Active 2022-07-20 N/A Hypertension Active 2022-07-20 N/A Type 2 diabetes mellitus wit h diabetic peripheral angiopathy without gangrene Active 2022-07-21 N/A Atrial fibrillation Active 2024-10-10 N/A Encounters Encounters Type Facility Date of Service Diagnosis/Co mplaint Medication List Documented (1159F) [facility] Medication List Documented (1159F) [facility] Medication List Documented (1159F[place] [facility] Medication List Documented (1159F[place] [facility] Medication List Documented (1159F[place] [facility] Medication List Documented (1159F[place] [facility] Medication List Documented (1159F[place] [facility] Medication List Documented (1159F) [facility] Essential (primary) hypertensionHyperlipidemia, unspecifiedGastro-esophageal reflux disease without esophagitisAge-related osteoporosis without current pathological fracturePersonal history of malignant neoplasm of breastChronic obstructive pulmonary disease, unspecifiedType 2 diabetes w diabetic peripheral angiopath w/o gangrene Estab. patient 30-39min; chronic exacerbation, 2 stable chronic or 1 acute illness add add modifier 95 for video, (do not use for phone, instead use [id number]) [facility]2023 Type 2 diabetes w diabetic peripheral angiopath w/o gangreneChronic obstructive pulmonary disease, unspecifiedEssential (primary) hypertensionHyperlipidemia, unspecifiedGastro-esophageal reflux disease without esophagitisAge-related osteoporosis without current pathological fractureUnspecified asthma, uncomplicatedPersonal history of malignant neoplasm of breast Estab. patient 30-39min; chronic exacerbation, 2 stable chronic or 1 acute illness add add modifier 95 for video, (do not use for phone, instead use 17693-82) [facility] Estab. patient 30-39min; chronic exacerbation, 2 stable chronic or 1 acute illness add add modifier 95 for video, (do not use for phone, instead use 50931-02) [facility] Estab. patient 30-39min; chronic exacerbation, 2 stable chronic or 1 acute illness add add modifier 95 for video, (do not use for phone, instead use 91577-27) [facility] Estab. patient 30-39min; chronic exacerbation, 2 stable chronic or 1 acute illness add add modifier 95 for video, (do not use for phone, instead use 03010-60) [facility] Estab. patient 30-39min; chronic exacerbation, 2 stable chronic or 1 acute illness add add modifier 95 for video, (do not use for phone, instead use 44571-07) [facility] Estab. patient 30-39min; chronic exacerbation, 2 stable chronic or 1 acute illness add add modifier 95 for video, (do not use for phone, instead use 15266-20) [facility] Estab. patient 30-39min; chronic exacerbation, 2 stable chronic or 1 acute illness add add modifier 95 for video, (do not use for phone, instead use 74052-26) [facility] Estab. patient 30-39min; chronic exacerbation, 2 stable chronic or 1 acute illness add add modifier 95 for video, (do not use for phone, instead use 16298-35) [facility], ([place]) 04/11/2023 Estab. patient 30-39min; chronic exacerbation, 2 stable chronic or 1 acute illness add add modifier 95 for video, (do not use for phone, instead use 25447-59) [facility], ([place]) 04/[place]/2023 Estab. patient 30-39min; chronic exacerbation, 2 stable chronic or 1 acute illness add add modifier 95 for video, (do not use for phone, instead use 65501-87) [facility]/14/2023 Type 2 diabetes w diabetic peripheral angiopath w/o gangreneChronic obstructive pulmonary disease, unspecifiedEssential (primary) hypertensionType 2 diabetes mellitus with other specified complicationHyperlipidemia, unspecifiedGastro-esophageal reflux disease without esophagitisAge-related osteoporosis without current pathological fractureUnspecified osteoarthritis, unspecified sitePersonal history of malignant neoplasm of breastOther problems related to medical facilities and other health care Estab. patient 30-39min; chronic exacerbation, 2 stable chronic or 1 acute illness add add modifier 95 for video, (do not use for phone, instead use 17212-19) [facility] Estab. patient 30-39min; chronic exacerbation, 2 stable chronic or 1 acute illness add add modifier 95 for video, (do not use for phone, instead use 94680-08) [facility]20[place] Estab. patient 30-39min; chronic exacerbation, 2 stable chronic or 1 acute illness add add modifier 95 for video, (do not use for phone, instead use 67069-59) [facility]20[place] Estab. patient 30-39min; chronic exacerbation, 2 stable chronic or 1 acute illness add add modifier 95 for video, (do not use for phone, instead use 10069-37) [facility]2023 Estab. patient 30-39min; chronic exacerbation, 2 stable chronic or 1 acute illness add add modifier 95 for video, (do not use for phone, instead use 19788-85) [facility]20[place] Estab. patient 30-39min; chronic exacerbation, 2 stable chronic or 1 acute illness add add modifier 95 for video, (do not use for phone, instead use 68874-28) [facility]20[place] Estab. patient 30-39min; chronic exacerbation, 2 stable chronic or 1 acute illness add add modifier 95 for video, (do not use for phone, instead use 39736-07) [facility]20[place] Estab. patient 30-39min; chronic exacerbation, 2 stable chronic or 1 acute illness add add modifier 95 for video, (do not use for phone, instead use 08357-88) [facility]20[place] Estab. patient 20-29min; 1 stable chronic or 2 minor; add add modifier 95 for video, modifier 93 for phone [facility]/2024 Other specified chronic obstructive pulmonary diseaseType 2 diabetes w diabetic peripheral angiopath w/o gangreneEssential (primary) hypertensionType 2 diabetes mellitus with other specified complicationHyperlipidemia, unspecifiedUnspecified atrial fibrillationLong term (current) use of oral hypoglycemic drugsGastro-esophageal reflux disease without esophagitisAge-related osteoporosis without current pathological fractureUnspecified osteoarthritis, unspecified sitePersonal history of malignant neoplasm of breastOther specified postprocedural statesOther problems related to medical facilities and other health care Estab. patient 20-29min; 1 stable chronic or 2 minor; add add modifier 95 for video, modifier 93 for phone [facility] Estab. patient 20-29min; 1 stable chronic or 2 minor; add add modifier 95 for video, modifier 93 for phone [facility] 09/25/2024 Estab. patient 20-29min; 1 stable chronic or 2 minor; add add modifier 95 for video, modifier 93 for phone [facility] Estab. patient 20-29min; 1 stable chronic or 2 minor; add add modifier 95 for video, modifier 93 for phone [facility] Estab. patient 20-29min; 1 stable chronic or 2 minor; add add modifier 95 for video, modifier 93 for phone [facility] 09/25/20[place] Estab. patient 20-29min; 1 stable chronic or 2 minor; add add modifier 95 for video, modifier 93 for phone [facility], ([place] 09/25/2024 Vital Signs Date of Collection Vitals 2022-07-20 07:06:33 Height - 129.54 cmWe ight - 50.8 kgBody Mass Index (BMI) - 30.27 kg/m2BP Diastolic - 63.0 mm[Hg]BP Systolic - 123.0 mm[Hg] 2023-04-11 11:10:09 Weight - 45.81 kgBod y Mass Index (BMI) - 27.3 kg/m2BP Diastolic - 88.0 mm[Hg]BP Systolic - 138.0 mm[Hg]Pain Scale - 0.0 {score} 2023-11-14 08:00:16 Height - 129.54 cmWe ight - 50.8 kgBody Mass Index (BMI) - 30.27 kg/m2BP Diastolic - 85.0 mm[Hg]BP Systolic - 139.0 mm[Hg]Heart Rate - 98.0 /minPain Scale - 10.0 {score} 2024-09-25 06:06:45 Height - 129.54 cmWe ight - 48.99 kgBody Mass Index (BMI) - 29.19 kg/m2BP Diastolic - 58.0 mm[Hg]BP Systolic - 138.0 mm[Hg]Pain Scale - 0.0 {score} Social History Social History Social History Observation Description Effec tive Time Current Smoking Status Never smoker 2024-12-04 7 Sex Female History of Procedures Procedures Service Procedure code Service date Servicing provider Phone# Medication List Documented (1159F) 1159F 2022-07-20 No Data Available No Data Lizeth ilable Medication Review by prescribing provider or pharmacist documented (1160F) 1160F 2022-07-20 No Data Available No Data Lizeth ilable Functional Status Assessed (1170F) 1170F 2022-07-20 No Data Available No Data Avail able Advance Care Directive Advance care planning discussion documented in the medical record (1158F) 1158F 2022-07-20 No Data Available No Data Availa ble BMI obtained (3008F) 3008F 2022-07-20 No Data Availab le No Data Available DBP <80 (3078F) 3078F 2022-07-20 No Data Available No Data Available SBP < 130 (3074F) 3074F 2022-07-20 No Data Available No Data Available New patient,40-59min; chronic exacerbation, 2 stable chronic or 1 acute illness add add modifier 95 for video (do not use for phone, instead use [id number]) 00706 2022-07-20 No Data Available No Data Availa ble Estab. patient 30-39min; chronic exacerbation, 2 stable chronic or 1 acute illness add add modifier 95 for video, (do not use for phone, instead use 93217-86) 71293 2023-04-11 No Data Available No Data Availa ble Advance care planning discussed and documented in the medical record ? beneficiary/patient did not wish to or was unable to provide an advance care plan or name a surrogate decision-maker. (1124F) 1124F 2023-04-11 No Data Available No Data Availa ble Functional Status Assessed (1170F) 1170F 2023-04-11 No Data Available No Data Avail able Medication List Documented (1159F) 1159F 2023-04-11 No Data Available No Data Lizeth ilable Medication Review by prescribing provider or pharmacist documented (1160F) 1160F 2023-04-11 No Data Available No Data Lizeth ilable Pain Assessment - NO pain present (1126F) 1126F 2023-04-11 No Data Available No Data A vailable BMI obtained (3008F) 3008F 2023-04-11 No Data Availab le No Data Available Advance Care Directive Advance care planning discussion documented in the medical record (1158F) 1158F 2023-04-11 No Data Available No Data Availa ble SBP 130-139 (3075F) 3075F 2023-04-11 No Data Availabl e No Data Available DBP 80-89 (3079F) 3079F 2023-04-11 No Data Available No Data Available Estab. patient 30-39min; chronic exacerbation, 2 stable chronic or 1 acute illness add add modifier 95 for video, (do not use for phone, instead use 60157-09) 24445 2023-11-14 No Data Available No Data Availa ble Medication List Documented (1159F) 1159F 2023-11-14 No Data Available No Data Lizeth ilable Medication Review by prescribing provider or pharmacist documented (1160F) 1160F 2023-11-14 No Data Available No Data Lizeth ilable BMI obtained (3008F) 3008F 2023-11-14 No Data Availab le No Data Available Advance Care Directive Advance care planning discussion documented in the medical record (1158F) 1158F 2023-11-14 No Data Available No Data Availa ble Advance care planning discussed and documented ? advance care plan or surrogate decision-maker was documented in the medical record. (1123F) 1123F 2023-11-14 No Data Available No Data Availa ble SBP 130-139 (3075F) 3075F 2023-11-14 No Data Availabl e No Data Available DBP 80-89 (3079F) 3079F 2023-11-14 No Data Available No Data Available Functional Status Assessed (1170F) 1170F 2023-11-14 No Data Available No Data Avail able Estab. patient 20-29min; 1 stable chronic or 2 minor; add add modifier 95 for video, modifier 93 for phone 69098 2024-09-25 No Data Available No Data Availa ble Medication List Documented (1159F) 1159F 2024-09-25 No Data Available No Data Lizeth ilable Medication Review by prescribing provider or pharmacist documented (1160F) 1160F 2024-09-25 No Data Available No Data Lizeth ilable Functional Status Assessed (1170F) 1170F 2024-09-25 No Data Available No Data Avail able Pain Assessment - NO pain present (1126F) 1126F 2024-09-25 No Data Available No Data A vailable Advance Care Directive Advance care planning discussion documented in the medical record (1158F) 1158F 2024-09-25 No Data Available No Data Availa ble Advance care planning discussed and documented in the medical record ? beneficiary/patient did not wish to or was unable to provide an advance care plan or name a surrogate decision-maker. (1124F) 1124F 2024-09-25 No Data Available No Data Availa ble Functional Status Functional Category Effective Dates ADL: Bathing Needs Assistanc e , Dressing Needs Assistance , Eating Independent , Ambulation Needs Assistance , Transferring Needs Assistance and Toileting Needs Assistance 2023-04-11 IADL: Medication Needs Ganesh tance , Meal Prep Needs Assistance , Shopping Needs Assistance , Driving or Public Transport Needs Assistance and Finances Needs Assistance 2023-04-11 Falls in last 6 Months: No 2023-04-11 Social Supports - # of Inter actions with Friends/Family in a typical week: Daily 2023-04-11 Mental Status Status Date Cognition Status: Oriented to Person, Pl jeyson and Time 2022-07-20 Assessments Date of Service Assessments 2022-07-20 07:06:33 HypertensionDiabetes mellitus with kidney complicationHyperlipidemiaGERD (gastroesophageal reflux disease)AsthmaOsteoporosisHx of breast cancerChronic obstructive pulmonary disease, unspecifiedType 2 diabetes mellitus with diabetic peripheral angiopathy without gangrene 2023-04-11 11:10:09 Type 2 diabetes juan pablo itus with diabetic peripheral angiopathy without gangreneCOPD with AsthmaHypertensionHyperlipidemiaGERD (gastroesophageal reflux disease)OsteoporosisHx of breast cancer 2023-11-14 08:00:16 Type 2 diabetes juan pablo itus with diabetic peripheral angiopathy without gangreneCOPD with AsthmaHypertensionType 2 diabetes mellitus with hyperlipidemiaGERD (gastroesophageal reflux disease)OsteoporosisOsteoarthritisHx of breast cancerOther problems related to medical facilities and other health care 2024-09-25 06:06:45 Type 2 diabetes juan pablo itus with diabetic peripheral angiopathy without gangreneCOPD with AsthmaHypertensionType 2 diabetes mellitus with hyperlipidemiaGERD (gastroesophageal reflux disease)OsteoporosisOsteoarthritisHx of breast cancerHistory of lumpectomy of both breastsOther problems related to medical facilities and other health careAtrial fibrillation Plan of Care Date of Service Plans 2022-07-20 07:06:33 Pain Assessment - NO pain documented (1126F)Medication Review by prescribing provider or pharmacist documented (1160F)Medication List Documented (1159F)Functional Status Assessed (1170F)Advance Care Directive Advance care planning discussion documented in the medical record (1158F)BMI obtained (3008F)SBP < 130 (3074F)DBP <80 (3078F)Televideo new patient,40-59min; chronic exacerbation, 2 stable chronic or 1 acute illness add modifier 95Continue to see PCP. Follow-up with [facility] as needed for any acute or disease education needs that may arise.Stable on multi drug therapy. 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 Has BP machine at home and checks BP twice daily. Has not been to PCP in 6 monthsrecommend healthy lifestyle changes (weight loss, heart healthy diet, sodium restriction, increase physical activity and alcohol restriction) and follow up with PCPDiagnosed many years ago, stable on Glipizide, jardiance, metformin and losartan. Unknown last HBA1c, patient sees PCP every 3-6monthsreviewed most recent glucose readings and counseled patient on best practices to monitor disease progressionencourage to continue with current plan, diet control and close follow up with PCPstable on a statinresponse to treatment evaluated reviewed records and discussed current condition with the patient recommend low fat diet and lifestyle modificationsstable on a daily PPIreviewed and patient counseled on use of PPI recommend dietary modifications, avoiding triggers and weight lossstable for many years denies any recent attacks or hospitalizations due to asthmaon a rescue inhaler PRNassessed frequency of ELTON use, counseled patient on understanding signs and symptoms of when to use inhalerrecommend close follow up with PCP, continue to use inhaler as needed and avoiding asthma exacerbation known triggersstable, on alendronate and calcium supplementation unsure if she is ever had a bone scan, no recent fractures. On lidocaine cream for bone pain as needed with OTC analgesics. Denies limitation of functional ability due to painrecommend exercise as tolerated and to take meds as prescribedstable, s/p chemotherapy and surgery many years ago. Recent mammogram in Februaryatient is on letrozole daily for recurrence preventionadvised on adequate fluid intake and to avoid other nephrotoxinscontinues to take advair 2puffs twice dailymember with a diagnosis that includes Type 2 DM, HLD. continues to take glipizide 2.5mg daily, jardiance 25mg daily, metformin 500mg twice daily, simvastatin 10mg daily. 2023-04-11 11:10:09 Medication Review by prescribing provider or pharmacist documented (1160F)Medication List Documented (1159F)Functional Status Assessed (1170F)Advance Care Directive Advance care planning discussion documented in the medical record (1158F)BMI obtained (3008F)SBP 130-139 (3075F)DBP 80-89 (3079F)Televideo 30-39min; chronic exacerbation, 2 stable chronic or 1 acute illness add modifier 95Advance care planning discussed and documented in the medical record ? beneficiary/patient did not wish to or was unable to provide an advance care plan or name a surrogate decision-maker. (1124F)Pain Assessment - NO pain documented (1126F)Continue to see PCP. Follow-up with [facility] as needed for any acute or disease education needs that may arise.Glipizide, Jardiance, Metformin, PioglitazoneTaking statin A1C 6.4% 3A1C 8.4% 03/14/2023 (Outside Care)GFR >60 03/14/2023 (Outside Care) *Suggest stopping sulfonylurea (glipizide) or switching to an alternative class with a more favorable risk? benefit ratio, such as a lower risk of hypoglycemia. Note to PCPAdvair, Albuterol via Nebulizer, FluticasoneAvoid allergens and triggers. Continue to follow up with PCP.Stable on multi drug therapy.Amlodipine, Losartan, Metoprolol Pt had a hypertensive emergency which led to a hemorrhagic stroke several years ago (does not recall exact date). Has BP machine at home and checks BP twice daily. Has not been to PCP in 6 monthsRecommend healthy lifestyle changes (weight loss, heart healthy diet, sodium restriction, increase physical activity and alcohol restriction) and Follow up with PCPStable on a statin- Atorvastatin Recommend low fat diet and lifestyle modifications.Continue to follow up with PCP.stable on a daily PPIreviewed and patient counseled on use of PPI recommend dietary modifications, avoiding triggers and weight lossstable, on alendronate and calcium supplementation unsure if she is ever had a bone scan, no recent fractures. On lidocaine cream for bone pain as needed with OTC analgesics. Denies limitation of functional ability due to painrecommend exercise as tolerated and to take meds as prescribedLetrozolestable, s/p chemotherapy and surgery many years ago. Recent mammogram in Februaryatient is on letrozole daily for recurrence preventionadvised on adequate fluid intake and to avoid other nephrotoxinsAt least 50% of time spent counseling patient, discussing diagnosis, treatment plan, compliance, and coordinating follow up care. 2023-11-14 08:00:16 Medication Review by prescribing provider or pharmacist documented (1160F)Medication List Documented (1159F)Functional Status Assessed (1170F)Advance Care Directive Advance care planning discussion documented in the medical record (1158F)BMI obtained (3008F)SBP 130-139 (3075F)DBP 80-89 (3079F)Televideo 30-39min; chronic exacerbation, 2 stable chronic or 1 acute illness add modifier 95Advance care planning discussed and documented in the medical record ? beneficiary/patient did not wish to or was unable to provide an advance care plan or name a surrogate decision-maker. (1124F)Pain Assessment - Pain Documented (1125F)Continue to see PCP. Follow-up with [facility] as needed for any acute or disease education needs that may arise.Glipizide, Jardiance, Metformin, PioglitazoneTaking statin A1C 6.4% 3A1C 8.4% 03/14/2023 (Outside Care)GFR >60 03/14/2023 (Outside Care) *Suggest stopping sulfonylurea (glipizide) or switching to an alternative class with a more favorable risk? benefit ratio, such as a lower risk of hypoglycemia. Note to PCP11/14/2023:Follows up with PCP, next appt 11/28/2023. Denies any skin ulcers or complaints. Glucose: 165 mg/dl at home. Continues taking DM: Glipizide, Jardiance, Metformin, PioglitazoneHL: Atorvastatin. Advised to follow low fat, low carb, heart healthy diet.Continue treatment as prescribed. Follow up with PCP as scheduled.Contact CB 28/03 as needed.Advair, Albuterol via Nebulizer, FluticasoneAvoid allergens and triggers. 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 Has BP machine at home and checks BP twice daily. Has not been to PCP in 6 monthsRecommend healthy lifestyle changes (weight loss, heart healthy diet, sodium restriction, increase physical activity and alcohol restriction) and Follow up with PCP 11/14/2023:Follows up with PCP, next appt 11/28/2023. BP: 139/85. Reported by patient, taken at time of video encounter. Continues taking: Amlodipine, Losartan, Metoprolol Denies any acute complaint.Continue treatment as prescribed, follow up as instructed.Monitor BP regularly at home.Follow low Sodium diet. Contact CB 24/7 as needed.Stable on a statin- Atorvastatin Recommend low fat diet and lifestyle modifications.Continue to follow up with PCP. 11/14/2023:Follows up with PCP, next appt 11/28/2023. Glucose: 165 mg/dl at home. Continues taking DM: Glipizide, Jardiance, Metformin, PioglitazoneHL: Atorvastatin. Advised to follow low fat, low carb, heart healthy diet.Continue treatment as prescribed. Follow up with PCP as scheduled.Contact CB 24/7 as needed.stable on a daily PPIreviewed and patient counseled on use of PPI recommend dietary modifications, avoiding triggers and weight loss11/14/2023:Follows up with PCP.Taking: Omeprazole QDDenies any acute complaint.Continue treatment as prescribed, follow up as instructed.Elevate head of bed. Avoid triggers. Contact CB 24/7 as needed.stable, on alendronate and calcium supplementation unsure if she is ever had a bone scan, no recent fractures. On lidocaine cream for bone pain as needed with OTC analgesics. Denies limitation of functional ability due to painrecommend exercise as tolerated and to take meds as prescribed 11/13/2020:Follows up with PCP. Continues taking: Alendronate and calcium supplementation.Reports chronic knee pain bilaterally and hands/joint pain.Takes Tylenol as needed.Letrozolestable, s/p chemotherapy and surgery many years ago. Recent mammogram in Februaryatient is on letrozole daily for recurrence preventionadvised on adequate fluid intake and to avoid other nephrotoxins 11/14/2023:Follows up with Oncologist once a year for surveillance, next appt 03/19/2024.Continues taking Letrozole. Denies any new findings or concerns.CONTINGENCY PLANMember to call for the following symptoms: Increased tiredness/ Wheezing/ Breathing loudly/ Increased coughPlanned intervention: Increase use of albuterol inhaler to q2h PRN cough, breathlessness/ Azithromycin 500mg on day 1 then 250 mg on day 2-5/ Flonase 2 sprays daily.Assess current symptoms and treat accordingly.Allergic to: Penicillin.Schedule f/u with primary VARUN. 2024-09-25 06:06:45 Functional Status As sessed (1170F)Advance Care Directive Advance care planning discussion documented in the medical record (1158F)SBP 130-139 (3075F)DBP <80 (3078F)Pain Assessment - NO pain documented (1126F)Estab. patient 20-29min; 1 stable chronic or 2 minor; add add modifier 95 for video, modifier 93 for phoneMedication List Documented (1159F)Medication Review by prescribing provider or pharmacist documented (1160F)Advance care planning discussed and documented in the medical record ? beneficiary/patient did not wish to or was unable to provide an advance care plan or name a surrogate decision-maker. (1124F)Continue to see PCP. Follow-up with [facility] as needed for any acute or disease education needs that may arise.09/25/2024:Follows up with PCP, last appt 09/07/2024:Denies any skin ulcers or complaints. Has appt with Shipping Point Inspector on 10/09/2024.Glucose: 190 mg/dl at home. Continues taking DM: Glipizide, Jardiance, Metformin, Pioglitazone, Tradjenta.HL: Atorvastatin. Advised to follow low fat, low carb, heart healthy diet.Continue treatment as prescribed. Follow up with PCP as scheduled.Contact CB 28/03 as needed.09/25/2024:Advair, Albuterol via Nebulizer, Fluticasone as needed.Avoid allergens and triggers. Continue to follow up with PCP.Denies any acute complaints.09/25/2024:Follows up with PCP, last appt 09/07/2024. BP: 138/58 09/21/2024 Office visit: [address] [id number] BP at home today: 132/82, HR: 84, reported by patient.Continues taking: Amlodipine, Losartan, Metoprolol.Denies any acute complaint.Continue treatment as prescribed, follow up as instructed.Monitor BP regularly at home.Follow low Sodium diet. Contact CB 24/7 as needed.09/25/2024:Follows up with PCP. Glucose: 165 mg/dl at home. Continues taking DM: Glipizide, Jardiance, Metformin, Pioglitazone, Tradjenta. HL: Atorvastatin. Advised to follow low fat, low carb, heart healthy diet.Continue treatment as prescribed. Follow up with PCP as scheduled.Contact CB 24/7 as needed.Most recent labs from outside care: Albumin, Random Urine W/Creatinine (09/17/2024 8:55 AM EST):Creatinine, Urine 34.13 mg/dL Microalbumin Urine 131.0 mg/L Microalbum Creatinine Ratio Ur 383.8 (H) <30 ug/mg crEstimated Glomerular Filt Rate >60Hemoglobin A1C 6.8 (A)09/25/2024:Follows up with PCP.Taking: Omeprazole QDDenies any acute complaint.Continue treatment as prescribed, follow up as instructed.Elevate head of bed. Avoid triggers. Contact CB 24/7 as needed.09/25/2024:Follows up with PCP. Continues taking: Calcium/ Vitamin D supplementation.Alendronate discontinued by PCP. Reports chronic knee pain bilaterally and hands/joint pain.Takes Tylenol as needed.09/25/2024:Follows up with Oncologist once a year for surveillance, last appt 1 week ago. Completed taking Letrozole. Denies any new findings or concerns.CONTINGENCY PLANMember to call for the following symptoms: Increased tiredness/ Wheezing/ Breathing loudly/ Increased coughPlanned intervention: Increase use of albuterol inhaler to q2h PRN cough, breathlessness/ Azithromycin 500mg on day 1 then 250 mg on day 2-5/ Flonase 2 sprays daily.Assess current symptoms and treat accordingly.Allergic to: Penicillin.Schedule f/u with primary VARUN. portal notes member does have a diagnosis that includes atrial fibrillation 07/30/22 (Gino Cárdenas MD) summarization of episode notecontinues metoprolol. losartan, amlodipineencourage physical activity as toleratedhealthy lifestyle changes Goals Date Goal 2022-07-20 Remember to 2022-07-20 Call me if 2022-07-20 Keep it up 2023-04-11 Continue taking medi cations as directed and keep all follow up appointments with established PCP and Specialist. 2023-11-14 Remember to keep all appointments with your PCP and specialists. Call CB 24/7 if you have questions or concerns. Discussed how to contact [facility] via phone or tablet. CB 24/7 phone number provided. 2024-09-25 Remember to keep all appointments with your PCP and specialists. Call CB 24/7 if you have questions or concerns. Discussed how to contact [facility] via phone or tablet. CB 24/7 phone number provided. Health Concerns Date Concern 2024-09-25 Gosia is a 79 y/o fem kitty. Visit completed using audio/video. Patient agreed to visit via telehealth. Today, patient has chief complaint of: follow up care and comprehensive review/ [facility]. Reviewed Allergies, Medications, Active Medical conditions, past medical/surgical history, Social history. 2024-09-25 Advance Care Planangelina hess conversation with: Gosia, does not have ACP in place, or established POA. Advised of importance of establishing ACP, verbalizes understanding. Contact us again as needed for assistance with ACP. 2024-09-25 Most recent hospital stay(s) or ER visit(s) and precipitating factors: None recently. 2024-09-25 Open HEDIS Measure david martinez: Reviewed 2024-09-25 Lives at home with harinder martel. Has PROCEDURE MANAGER -Tuesday. 2024-09-25 Follows up with PCP, last appt 09/07/2024, Oncologist, last appt 1 week ago, and Electrical Journeyman. Has appt with Shipping Point Inspector on 10/09/2024.
--- OUTSIDE RECORDS SUMMARY | 2024-12-20 11:48 | XMS_ITS | Encounter Summary ---
Author Organization [employer] Address [address] [place] [address] [address] [place] [address] Care Team Providers Care Air Brake Mechanic Name Role Phone Name, Tristin COLLADO Primary Care Provider [phone] Cecelia Newsome PharmD Unavailable [phone] Encounter Details Date Type Department Care Team (Late st Contact Info) Description 09/13/2022 Orders Only [facility] [address] [place] [address] Minoo Benton LPN Social History Tobacco Use Types Packs/Day Years Used Date Smoking Tobacco: Never Smokeless Tobacco: Never Depression Answer Date Recorded Patient Health Questionnaire-9 Score 0 08/17/2022 Depression Answer Date Recorded Patient Health Questionnaire-2 Score 0 08/17/2022 Comments Unknown Sex and Gender Information Value Date Recorded Sex Assigned at Female 07/05/2022 10:14 AM EDT Legal Sex Female 10:14 AM EDT Gender Identity Female 07/05/2022 10:14 AM EDT Sexual Orientation Straight 07/05/2022 10 :14 AM EDT COVID-19 Exposure Response Date Recorded In the last 10 days, have yo u been in contact with someone who was confirmed or suspected to have Coronavirus/COVID-19? No / Unsure 08/17/2022 10:08 AM EST documented as of this encounter Plan of Treatment Upcoming Encounters Date Type Department Care Team (Late Contact Info) Description 12/28/2024 11:30 AM EDT Telemedicine [address] [phone] 09/27/2025 10:30 AM EST Medication Management [address] [address] Ute Grissom PharmD [address] [place] [address] documented as of this encounter Visit Diagnoses Not on filedocumented in this encounter Additional Health Concerns Assessment Noted Time PHQ-9 Depression Total Score: 0 08/17/20 10:24 AM EST documented as of this encounter Care Teams Air Brake Mechanic Relationship Specialty Start Date End Date Name, MD Tristin [address] [place] [phone] PCP - General Family Medicine 04/17/18 Cecelia Newsome PharmD [address] [place] [id number] Pharmacist Internal Medicine 09/29/21 documented as of this encounter
--- OUTSIDE RECORDS SUMMARY | 2024-12-20 11:48 | XMS_ITS | Encounter Summary ---
Author Organization [facility] Address [address] [place] [address] [address] [place] [address] Care Team Providers Care Grating Machine Operator Name Role Phone Name, Tristin COLLADO Primary Care Provider [phone] Cecelia Newsome PharmD Unavailable [phone] Reason for Visit * Reason Comments Med Refill Encounter Details Date Type Department Care Team (Late st Contact Info) Description 09/05/2022 Refill [facility] [address] [place] [address] Name, MD Tristin [address] [place] [address] Diabetic nephropathy with proteinuria (CMS/HCC) (Primary Dx) Social History Tobacco Use Types Packs/Day Years [...] Info) Description 12/28/2024 11:30 AM EDT Telemedicine [facility] [address] [place] [phone] 09/27/2025 10:30 AM EST Medication Management [facility] [address] [place] [phone] Ute Grissom, Lorene [address] [place] [phone] documented as of this encounter Visit Diagnoses Diagnosis Diabetic nephropathy with proteinuria (CMS/HCC)- Primary documented in this encounter Additional Health Concerns Assessment Noted Time PHQ-9 Depression Total Score: 0 08/17/20 10:24 AM EST documented as of this encounter Care Teams Grating Machine Operator Relationship Specialty Start Date End Date Name, MD Tristin [address] [place] [id number] PCP - General Family Medicine 04/17/18 Cecelia Newsome PharmD [address] [place] [phone] Pharmacist Internal Medicine 09/29/21 documented as of this encounter
== END 2024-12-20 10:04 | disposition home or self-care (01) ==
LOC: HO.HHCX 10:03
PROVIDERS: Visit Provider Internal Medicine Geriatric Medicine
DX: M54.50 Low back pain, unspecified (principal)
CPT/HCPCS: 72100

== ENCOUNTER → 2024-12-20 10:04 | Outpatient (BNV) | payer OTHER, SELFPAY | PROVIDERS: Visit Provider Radiology Diagnostic Radiology | DX: M85.88 Other specified disorders of bone density and structure, other site (principal) | CPT/HCPCS: 72100 ==

== ENCOUNTER 2024-12-25 09:05 | Outpatient (REF) | payer OTHER, SELFPAY ==
--- OUTSIDE RECORDS SUMMARY | 2024-12-25 09:40 | XMS_ITS | Clinical Summary ---
Demographics Address [address] [facility] [address] [address] [place] [address] Mobile Phone Home Phone Email Address Preferred Language es Marital Status Single Uatsdin Affiliation Unknown Race Other Race Ethnic Group or Author Organization [employer] Address [address] [place] [address] 7t [place] [address] Care Team Providers Care Mine Manager Name Role Phone Name, Tristin COLLADO Primary Care Provider [phone] Cecelia Newsome PharmD Unavailable [phone] Allergies Active Allergy Reactions Criticality Noted Date Comments Penicillin V 01/25/2012 Medications Lancets (OneTouch Delica Plus [id number]) miscIndications: Type 2 diabetes mellitus with diabetic nephropathy, without long-term current use of insulin ([facility]) TEST BLOOD SUGAR THREE TIMES DAILY 100 [...] complication, without long-term current use of insulin (CMS/[facility]) Take 1 tablet (40 mg) by mouth [...] take terbinafine for onychomycosis, considered consultation with rn midwife however am aware of the limitations surrounding [...] Description 12/20/2024 9:15 AM EDT Office Visit [facility] MEDICINE [address] [place] [address] Tristin Fregoso MD Type 2 diabetes mellitus without complication, without long-term current use of insulin ([facility]) (Primary Dx); Essential hypertension; Acute bilateral low back pain without sciatica 12/20/2024 Orders Only [facility] MED[facility] [address] [place] [address] Tristin Fregoso MD 12/20/2024 Travel 12/17/2024 Telephone [facility] MED & PEDS [address] [place], [place] [phone] Tristin Fregoso MD chart prep 12/11/2024 Patient Outreach [facility] [address] [place] [address] Tristin Fregoso MD Pre-visit Planning (SDOH screening negative and tobacco screening negative) 12/03/2024 Refill [facility] [address] [place] [address] Tristin Fregoso MD 11/15/2024 Refill [facility] MEDICINE [address] [place] [address] Humera Abdi ANP 11/15/2024 Refill [facility] MED[facility]INE [address] [place] [address] Tristin Fregoso MD Unspecified asthma, uncomplicated 10/29/2024 1:00 PM EST Office Visit [facility] ADULT DENTAL [address] [place] [address] Rolando Winkler DDS Ill-fitting dentures (Primary Dx) 10/04/2024 Refill [facility] MEDICINE [address] [place] [address] Tristin Fregoso MD Diabetes mellitus without complication ([facility]) 10/02/2024 Refill [facility] MEDICINE [address] [place] [address] Tristin Fregoso MD 10/01/2024 Refill [facility] PEDS [address] [place] [address] Tristin Fregoso MD 09/30/2024 Telephone [facility] MEDICINE [address] [place] [address] Yulissa Damon, PharmD 09/28/2024 Travel 09/27/2024 Telephone [facility] MEDICINE [address] [place] [address] Tristin Fregoso MD from Last 3 Months Immunizations Name Administration [...] Info) Description 12/28/2024 11:30 AM EDT Telemedicine [facility] [address] [place] [address] 09/27/2025 10:30 AM EST Medication Management [facility] MEDICINE [address] [place] [address] Ute Grissom, PharmD [address] [place] [address] Health Maintenance Due Date Last Done Comments [...] Procedure Name Priority Date/Time Associated Diagnosis Comments XR LUMBAR SPINE 2-3 VIEWS Routine 12/20/2024 10:04 AM EDT POCT GLYCATED HEMOGLOBIN, TOTAL Routine 12/20/2024 9:32 AM EDT Type 2 diabetes mellitus without complication, without long-term current use of insulin ([facility]) POCT GLUCOSE Routine 12/20/2024 9:32 AM EDT Type 2 diabetes mellitus without complication, without long-term current use of insulin (CMS/HCC) DENTURE ADJUSTMENT Routine 10/29/2024 1: 00 PM [...] PANEL, STANDARD Routine 09/28/2023 8:30 AM EST HM DIABETES EYE EXAM Routine 01/21/2022 from Last 3 Months or Most Recently Relevant to Health Maintenance Results * XR Lumbar Spine 2-3 Views (12/20/2024 10:04 AM EDT) Anatomical Region Laterality Modality Spine, L-spine Radiographic Grace ging 12/20/2024 10:0 4 AM EDT Narrative 12/20/2024 12:05 PM EDT ?[facility] ?[address] ?[place] [address] ?XRay Report ? Signed ? Patient: Collier,Gosia ?MR#: [id number] ? : 1945 ?Acct:[id number] ? Age/Sex: 79 / F ?ADM Date: 12/20/24 ? Loc: HO.HHCX ? Attending : Tristin Fregoso MD ? Ordering Physician: Tristin Fregoso MD ?? Date of Service: 12/20/24 ?? Procedure(s): XR lumbar spine 2-3V ?? Accession Number(s): [id number] ? cc: Name,Tristin COLLADO ? EXAMINATION: ??XR LUMBAR SPINE 2-3 VIEWS ? HISTORY: PAIN ? COMPARISON: There are no prior studies for comparison. ? FINDINGS: ??AP, lateral, and coned down views of the lumbar spine are ?? submitted. ??The bones are osteopenic. ??Five nonrib-bearing lumbar ?? vertebral bodies are identified, maintaining normal height and ?? alignment without evidence of fracture or spondylolisthesis. ??There is ?? mild degenerative disc disease at the L5-S1 level with anterior ?? spurring. ??There is osteoarthritis of the facet joints. ??The visualized ?? paraspinal soft tissues are unremarkable. ? XR/XR lumbar spine 2-3V ?? IMPRESSION: ?? Osteopenia. Mild degenerative disc disease of the lower lumbar spine as ?? described. ? Electronically signed by: ??Gino Gusman MD ??12/20/2024 12:03 PM EDT ?? RP ? Dictated By: ?Gino Gusman MD ? Signed By: ?<Electronically signed by Gino Gusman MD in OV> ?12/20/24 1203 ? DD/ 1004 ? TD/TT: 12/20/24 1040 ? [employer]: ? Procedure Note Donotuseinterpreter, Image - 12/20/2024 [place] [address] XRay Report Signed Patient: Silviano Collier#: [id number] : 1945cct:[id number] Age/Sex: 79 / FADM Date: 12/20/24 Loc: HO.HHCX Attending Dr: Tristin Fregoso MD Ordering Physician: Tristin Fregoso MD Date of Service: 12/20/24 Procedure(s): XR lumbar spine 2-3V Accession Number(s): [id number] cc: Tristin Fregoso MD EXAMINATION: XR LUMBAR SPINE 2-3 VIEWS HISTORY: PAIN COMPARISON: There are no prior studies for comparison. FINDINGS: AP, lateral, and coned down views of the lumbar spine are submitted. The bones are osteopenic. Five nonrib-bearing lumbar vertebral bodies are identified, maintaining normal height and alignment without evidence of fracture or spondylolisthesis. There is mild degenerative disc disease at the L5-S1 level with anterior spurring. There is osteoarthritis of the facet joints. The visualized paraspinal soft tissues are unremarkable. XR/XR lumbar spine 2-3V IMPRESSION: Osteopenia. Mild degenerative disc disease of the lower lumbar spine as described. Electronically signed by: Gino Gusman MD 12/20/2024 12:03 PM EDT Dictated By: Gino Gusman MD Signed By: <Electronically signed by Gino Gusman MD in OV> 12/20/24 1203 DD/ 1004 TD/TT: 12/20/24 1040 [employer]: us Tristin Fregoso MD IMG XR PROCEDURES Final Result * (ABNORMAL) POCT HGB A1C (12/20/2024 9:32 AM EDT) Pathologist [facility] Hemoglobin A1C 7.2(A) 4.0 - 6.0 % QC Media Lot # [id number] Lot# Expiration Date 110,426 Blood 12/20/2024 9:32 AM EDT us Tristin Fregoso MD POINT OF CARE TEST ENTER/EDIT OR DERABLES Final Result * POCT Glucose (12/20/2024 9:32 AM EDT) Pathologist [facility] Glucose Blood, POC 124 60 - 200 mg/dL QC Media Lot # [id number] Lot# Expiration Date 82,625 Blood Capillary blood specimen / Unknown 12/20/2024 9:32 AM EDT Result Gem Fregoso MD POINT OF CARE TEST ENTER/EDIT OR DERABLES Final Result * Hepatitis C Antibody with Reflex to HCV, RNA, Quantitative, Real-Time PCR (02/23/2024 11:57 AM EDT) Pathologist [facility] Hepatitis C Antibody Nonreactive Nonreactive [facility] Comment:Antibodies to HCV no t detected; does not exclude early acuteHCV infection. Blood Venous blood specimen / Unknown 02/23/2024 11:57 AM EDT 02/23/2024 1:01 PM EDT us Tristin Fregoso MD LAB BLOOD ORDERABLES Final Resul t [facility] [address] [place] [phone] * Lipid Panel, Standard (09/28/2023 8:30 AM EST) Triglycerides 129 <150 mg/dL [facility] Comment:Desirable Triglyceri de: less than 150 mg/dLBorderline High Triglyceride 150-199 mg/dLHigh Triglyceride: 200-499 mg/dLVery High Triglyceride: greater than or equal to 5OO mg/dL Cholesterol 168 <200 mg/dL [facility] Comment:Desirable Cholestero l: less than 200 mg/dLBorderline High Cholesterol: 200-239 mg/dLHigh Cholesterol: greater than 239 mg/dL LDL Cholesterol Calculated 90 <100 mg/dL [facility] Comment:Desirable LDL: less than 100 mg/dLNear Optimal/Above Optimal LDL: 110- 129 mg/dLBorderline High LDL: 130-159 mg/dLHigh LDL: 160-189 mg/dLVery High LDL: greater than or equal to 190 mg/dL HDL Cholesterol 53 >40 mg/dL [facility] Comment:Desirable HDL: great er than 40 mg/dL Note: This HDL assay may give artificially low results in patients with liver disease. 09/28/2023 8:30 AM EST 09/28/2023 11:16 AM EST us Tristin Fregoso MD LAB BLOOD ORDERABLES Final Resul t [facility] [address] [place] [address] [phone] * Diabetes Eye Exam (01/21/2022) Eye Exam Normal Normal us Tristin Fregoso MD HEALTH MAINTENANCE Final Result from Last 3 Months or Most Recently Relevant to Health Maintenance Insurance * Guarantor: Gosia Collier Account Type Relation to Patient Date of Phone Billing Address Personal/Family Self 1945 [address] [place] [address] [facility] DUAL COMPLETE * Guarantor: Gosia Collier Account Type Relation to Patient Date of Phone Billing Address Dental Self [address] [place] [address] DENT[address] - [facility] * Guarantor: Gosia Collier Account Type Relation to Patient Date of Phone Billing Address Dental Self [address] [place] [address] * Guarantor: Gosia Collier Account Type Relation to Patient Date of Phone Billing Address Personal/Family Self [address] [place] [address] * Guarantor: Gosia Collier Account Type Relation to Patient Date of Phone Billing Address Personal/Family Self [address] [place] [address] * Guarantor: Gosia Collier Account Type Relation to Patient Date of Phone Billing Address Personal/Family Self [address] [place] [address] Care Teams Mine Manager Relationship Specialty Start Date End Date Name, MD Tristin [address] [place], [place] [phone] PCP - General Family Medicine 04/17/18 Cecelia Newsome PharmD [address] [place], [place] [phone] Pharmacist Internal Medicine 09/29/21
--- OUTSIDE RECORDS SUMMARY | 2024-12-25 09:40 | XMS_ITS | Encounter Summary ---
Author Organization [facility] Address [address] [place] [address] 7t [place] [address] Care Team Providers Care Blocking Machine Operator Name Role Phone Name, Tristin COLLADO Primary Care Provider Cecelia Newsome PharmD Unavailable [phone] Reason for Visit * Reason Comments Med Refill Encounter Details Date Type Department Care Team (Late st Contact Info) Description 01/26/2023 Refill [facility] [address] [place] [address] Name, MD Tristin [address] [place] [address] Social History Tobacco Use Types Packs/Day Years [...] Info) Description 12/28/2024 11:30 AM EDT Telemedicine [address] [phone] 09/27/2025 10:30 AM EST Medication Management [facility] [address] [place] [address] [place] [address] Ute Grissom PharmD [address] [place] [address] documented as of this encounter Goals Goal [...] documented as of this encounter Care Teams Blocking Machine Operator Relationship Specialty Start Date End Date Name, MD Tristin [address] [place] [address] PCP - General Family Medicine 04/17/18 Cecelia Newsome, PharmD [address] [place] [address] Pharmacist Internal Medicine 09/29/21 documented as of this encounter
--- OUTSIDE RECORDS SUMMARY | 2024-12-25 09:40 | XMS_ITS | Encounter Summary ---
Author Organization [employer] Address [address] [facility] 7t [place] [address] Care Team Providers Care Sightseeing Guide Name Role Phone Name, Tristin COLLADO Primary Care Provider [phone] Cecelia Newsome PharmD Unavailable [phone] Encounter Details Date Type Department Care Team ([facility] st Contact Info) Description 12/20/2024 Orders Only [facility] MEDICINE [address] [place], [place] [phone] Name, MD Tristin [address] [place] [address] Social History Tobacco Use Types Packs/Day Years [...] Info) Description 12/28/2024 11:30 AM EDT Telemedicine [facility] MEDICINE [address] [place] [address] 09/27/2025 10:30 AM EST Medication Management [address] [address] Ute Grissom PharmD [address] [place] [address] documented as of this encounter Goals Goal [...] Cecelia, PharmD documented as of this encounter Procedures Procedure Name Priority Date/Time Associated Diagnosis Comments XR LUMBAR SPINE 2-3 VIEWS Routine 12/20/2024 10:04 AM EDT documented in this encounter Results * XR Lumbar Spine 2-3 Views (12/20/2024 10:04 AM EDT) Anatomical Region Laterality Modality Spine, L-spine Radiographic Rgace ging 12/20/2024 10:0 4 AM EDT Narrative 12/20/2024 12:05 PM EDT ?[facility] ?[address] ?[place] [address] ?XRay Report ? Signed ? Patient: Collier,Gosia ?MR#: [id number] ? : 1945 ?Acct:[id number] ? Age/Sex: 79 / F ?ADM Date: 12/20/24 ? Loc: HO.HHCX ? Attending Dr: Tristin Fregoso MD ? Ordering Physician: Tristin Fregoso MD ?? Date of Service: 12/20/24 ?? Procedure(s): XR lumbar spine 2-3V ?? Accession Number(s): [id number] ? cc: Tristin Fregoso MD ? EXAMINATION: ??XR LUMBAR SPINE 2-3 VIEWS [...] DD/ 1004 ? TD/TT: 12/20/24 1040 ? Engineering Faculty: ? Procedure Note Elena, Camelia - 12/20/2024 [facility] [address] [place] [address] XRay Report Signed Patient: Silviano Collier#: [id number] : 6Acct:[id number] Age/Sex: 79 / FADM Date: 12/20/24 Loc: HO.HHCX Attending Dr: Tristin Fregoso MD Ordering Physician: Tristin Fregoso MD Date of Service: 12/20/24 Procedure(s): XR lumbar spine 2-3V Accession Number(s): [id number] cc: Tristin Fregoso MD EXAMINATION: XR LUMBAR [...] 12/20/24 1203 DD/ 1004 TD/TT: 12/20/24 1040 Engineering Faculty: Tristin Fregoso MD IMG XR PROCEDURES Final Result documented in this encounter Visit Diagnoses Not on filedocumented in this encounter Additional Health Concerns Assessment Noted Time PHQ-9 Depression Total Score: 0 11/28/19 24 10:14 AM EDT documented as of this encounter Care Teams Sightseeing Guide Relationship Specialty Start Date End Date Tristin Fregoso MD [address] [place] [address] PCP - General Family Medicine 04/17/18 Cecelia Newsome PharmD [address] [place] [address] Pharmacist Internal Medicine 09/29/21 documented as of this encounter
--- OUTSIDE RECORDS SUMMARY | 2024-12-25 09:40 | XMS_ITS | Encounter Summary ---
Author Organization [employer] Address [address] [place] [address] 7t [place] [address] Care Team Providers Care Gun Striper Name Role Phone Name, Tristin COLLADO Primary Care Provider [phone] Cecelia Newsome PharmD Unavailable [phone] Encounter Details Date Type Department Care Team (Late st Contact Info) Description 09/13/2022 Orders Only [facility] CHC MED & PEDS [address] [place] [address] Minoo Benton LPN Social History Tobacco Use [...] Info) Description 12/28/2024 11:30 AM EDT Telemedicine [address] [phone] 09/27/2025 10:30 AM EST Medication Management [address] [address] Ute Grissom PharmD [address] [place] [address] documented as of this encounter Visit Diagnoses Not on filedocumented in this encounter Additional Health Concerns Assessment Noted Time PHQ-9 Depression Total Score: 0 08/17/20 10:24 AM EST documented as of this encounter Care Teams Gun Striper Relationship Specialty Start Date End Date Name, MD Tristin [address] [place] [address] PCP - General Family Medicine 04/17/18 Cecelia Newsome PharmD [address] [place] [address] Pharmacist Internal Medicine 09/29/21 documented as of this encounter
--- OUTSIDE RECORDS SUMMARY | 2024-12-25 09:40 | XMS_ITS | Encounter Summary ---
Author Organization [employer] Address [address] [facility] 7t [place] [address] Care Team Providers Care Darkroom Worker Name Role Phone NameTristin MD Primary Care Provider [phone] Cecelia Newsome PharmD Unavailable [phone] Reason for Visit * Reason Comments Diabetes Encounter Details Date Type Department Care Team ([facility] st Contact Info) Description 12/20/2024 9:15 AM EDT Office Visit [facility] MEDICINE [address] [place], [place] [phone] Name, MD Tristin [address] [place] [address] Type 2 diabetes mellitus without complication, without long-term current use of insulin ([facility]) (Primary Dx); Essential hypertension; Acute bilateral low [...] visit and she is accompanied by her MEDICAL MANAGER She is doing well. She is using [...] 20 tablet 0 Lancets (OneTouch Delica Plus [id number]) [facility] TEST BLOOD SUGAR THREE TIMES DAILY 100 [...] current use of insulin ([facility]) Comments: I did not recommend any medication [...] Info) Description 12/28/2024 11:30 AM EDT Telemedicine [facility] MEDICINE [address] [place] [address] 09/27/2025 10:30 AM EST Medication Management [facility] MED[facility] [address] [place] [address] Ute Grissom PharmD [address] [place] [address] Scheduled Orders Name Type Priority Associated Diagnoses Orde r Schedule Comprehensive Metabolic Panel Lab Routine Type 2 diabetes mellitus without complication, without long-term current use of insulin ([facility]) Essential hypertension Expected: 12/20/2024 (Approximate), Expires: 12/20/2025 Lipid Panel, Standard Lab Routine Type 2 diabetes mellitus without complication, without long-term current use of insulin ([facility]) Essential hypertension Expected: 12/20/2024 (Approximate), Expires: 12/20/2025 [...] current use of insulin ([facility]) POCT GLUCOSE Routine 12/20/2024 9:32 AM EDT Type 2 diabetes mellitus without complication, without long-term current use of insulin ([facility]) documented in this encounter Results * (ABNORMAL) [...] current use of insulin ([facility])- Primary Essential hypertension Unspecified essential hypertension Acute bilateral low back pain without sciatica documented in this encounter Additional Health Concerns Assessment Noted Time PHQ-9 Depression Total Score: 0 11/28/19 24 10:14 AM EDT documented as of this encounter Care Teams Darkroom Worker Relationship Specialty Start Date End Date Name, MD Tristin [address] [place] [address] PCP - General Family Medicine 04/17/18 Cecelia Newsome PharmD [address] [place] [address] Pharmacist Internal Medicine 09/29/21 documented as of this encounter
--- OUTSIDE RECORDS SUMMARY | 2024-12-25 09:40 | XMS_ITS | Encounter Summary ---
Author Organization [employer] [facility] Address [address] [facility] 7t [place] [address] Care Team Providers Care Shoe Designer Name Role Phone Name, Tristin COLLADO Primary Care Provider [phone] Cecelia Newsome PharmD Unavailable [phone] Reason for Visit * Reason Comments Med Refill Encounter Details Date Type Department Care Team ([facility] st Contact Info) Description 08/16/2023 Refill [facility] [address] [place] [address] Cecelia Newsome, PharmD [address] [place], [place] [phone] Type 2 diabetes mellitus without complication, without long-term current use of insulin ([facility]) Social History Tobacco Use Types Packs/Day Years [...] Info) Description 12/28/2024 11:30 AM EDT Telemedicine [facility] [address] [place] [address] 09/27/2025 10:30 AM EST Medication Management [facility] [address] [place] [address] Ute Grissom PharmD [address] [place] [address] documented as of this encounter Goals Goal [...] complication, without long-term current use of insulin ([facility]) documented in this encounter Additional Health Concerns Assessment Noted Time PHQ-9 Depression Total Score: 0 08/17/20 22 10:24 AM EST documented as of this encounter Care Teams Shoe Designer Relationship Specialty Start Date End Date Name, MD Tristin [address] [place] [address] PCP - General Family Medicine 04/17/18 Puia, Cecelia, PharmD [address] [place] [address] Pharmacist Internal Medicine 09/29/21 documented as of this encounter
--- OUTSIDE RECORDS SUMMARY | 2024-12-25 09:40 | XMS_ITS | Encounter Summary ---
Demographics Address [address] [facility] [address] [place] [address] Mobile Phone Home Phone Email Address Preferred Language es Marital Status Single Hindu Affiliation Unknown Race Other Race Ethnic Group or Author Organization [email or web address] Address [address] [facility] 7t [place] [address] Care Team Providers Care Garnett Feeder Name Role Phone Name, Tristin COLLADO Primary Care Provider [phone] Cecelia Newsome PharmD Unavailable [phone] Encounter Details Date Type Department Care [...] Info) Description 12/28/2024 11:30 AM EDT Telemedicine [facility] MEDICINE [address] [place] [address] 09/27/2025 10:30 AM EST Medication Management [address] [address] Ute Grissom PharmD [address] [place] [address] documented as of this encounter Goals Goal [...] documented as of this encounter Care Teams Garnett Feeder Relationship Specialty Start Date End Date Name, MD Tristin [address] [place] [address] PCP - General Family Medicine 04/17/18 Puia, Cecelia, PharmD [address] [place] [address] Pharmacist Internal Medicine 09/29/21 documented as of this encounter
--- OUTSIDE RECORDS SUMMARY | 2024-12-25 09:40 | XMS_ITS ---
Author Name Hercules BOTTOM CRANE OPERATOR,WEIGHMASTER LEAD,FN P,MANAGER RADIO, Idalia Address [address] [place] [address] Phone [phone] Organization [facility] Care Team Providers Care Numerical Control Nesting Operator Name Role Phone Idalia Hercules Unavailable [phone] NameTristin Unavailable [phone] Reason for Referral Not Available Allergies, adverse [...] 2021-12-28 No Data Available OneTouch Delica Plus [id number] Miscellaneous TEST BLOOD SUGAR THREE TIMES DAILY [...] 10 mg Tab TAKE 1 TABLET BY [facility] AT BEDTIME (for cholesterol) 2022-02-26 [...] 2.5 mg Tab TAKE 1 TABLET BY [facility] EVERY DAY 2021-12-21 2024-09-25 Medbox Status USE DIRECTED 2022-07-19 No Data Lizeth ilable Albuterol Sulfate (2.5 mg/3ML) 0.083% Nebulization Solution USE 1 AMPULE USING A NEBULIZER EVERY 4 HOURS DIRECTED 2022-11-05 No Data Available Ibuprofen 600 mg Tab TAKE 1 TABLET BY [facility] EVERY 8 HOURS NEEDED FOR MILD PAIN 2022-11-09 No Data Available HealthyTweet Ultra 2 w/Device Kit USE DIR ECTED [...] Date Resolved Date Other problems related to [facility] facilities and other health care [...] Service Diagnosis/Co mplaint Medication List Documented (1159F) [facility] Medication List Documented (1159F) [facility] Medication List Documented (1159F) [facility] Medication List Documented (1159F) [facility] Medication List Documented (1159F) [facility] Medication List Documented (1159F) [facility] Medication List Documented (1159F) [facility] Medication List Documented (1159F) [facility] Essential (primary) hypertensionHyperlipidemia, unspecifiedGastro-esophageal reflux disease without esophagitisAge-related osteoporosis without current pathological fracturePersonal history of malignant neoplasm of breastChronic obstructive pulmonary disease, unspecifiedType 2 diabetes w diabetic peripheral angiopath w/o gangrene Estab. patient 30-39min; chronic exacerbation, 2 stable chronic or 1 acute illness add add modifier 95 for video, (do not use for phone, instead use 44658-14) [facility]2023 Type 2 diabetes w diabetic peripheral angiopath w/o gangreneChronic obstructive pulmonary disease, unspecifiedEssential (primary) hypertensionHyperlipidemia, unspecifiedGastro-esophageal reflux disease without esophagitisAge-related osteoporosis without current pathological fractureUnspecified asthma, uncomplicatedPersonal history of malignant neoplasm of breast Estab. patient 30-39min; chronic exacerbation, 2 stable chronic or 1 acute illness add add modifier 95 for video, (do not use for phone, instead use 06088-17) [facility] Estab. patient 30-39min; chronic exacerbation, 2 stable chronic or 1 acute illness add add modifier 95 for video, (do not use for phone, instead use 46048-36) [facility] Estab. patient 30-39min; chronic exacerbation, 2 stable chronic or 1 acute illness add add modifier 95 for video, (do not use for phone, instead use 45726-99) [facility] Estab. patient 30-39min; chronic exacerbation, 2 stable chronic or 1 acute illness add add modifier 95 for video, (do not use for phone, instead use 17990-69) [facility] Estab. patient 30-39min; chronic exacerbation, 2 stable chronic or 1 acute illness add add modifier 95 for video, (do not use for phone, instead use 19179-90) [facility] Estab. patient 30-39min; chronic exacerbation, 2 stable chronic or 1 acute illness add add modifier 95 for video, (do not use for phone, instead use 14521-72) [facility]23 Estab. patient 30-39min; chronic exacerbation, 2 stable chronic or 1 acute illness add add modifier 95 for video, (do not use for phone, instead use 97065-36) [facility] Estab. patient 30-39min; chronic exacerbation, 2 stable chronic or 1 acute illness add add modifier 95 for video, (do not use for phone, instead use 00839-84) [facility] Estab. patient 30-39min; chronic exacerbation, 2 stable chronic or 1 acute illness add add modifier 95 for video, (do not use for phone, instead use 50993-37) [facility] Estab. patient 30-39min; chronic exacerbation, 2 stable chronic or 1 acute illness add add modifier 95 for video, (do not use for phone, instead use 92729-10) [facility] 11[place]14[place]2023 Type 2 diabetes w diabetic peripheral [...] (do not use for phone, instead use 81971-72) [facility]2023 Estab. patient 30-39min; chronic exacerbation, 2 stable chronic or 1 acute illness add add modifier 95 for video, (do not use for phone, instead use 25784-07) [facility] 11[place]14[place]2023 Estab. patient 30-39min; chronic exacerbation, 2 stable chronic or 1 acute illness add add modifier 95 for video, (do not use for phone, instead use 15421-28) [facility] 11/14/2023 Estab. patient 30-39min; chronic exacerbation, 2 stable chronic or 1 acute illness add add modifier 95 for video, (do not use for phone, instead use 79314-62) [facility] 11/14/2023 Estab. patient 30-39min; chronic exacerbation, 2 stable chronic or 1 acute illness add add modifier 95 for video, (do not use for phone, instead use 09007-91) [facility] 11/14/2023 Estab. patient 30-39min; chronic exacerbation, 2 stable chronic or 1 acute illness add add modifier 95 for video, (do not use for phone, instead use 48319-83) [facility] 11/14/2023 Estab. patient 30-39min; chronic exacerbation, 2 stable chronic or 1 acute illness add add modifier 95 for video, (do not use for phone, instead use 49242-09) [facility] 11/14/2023 Estab. patient 30-39min; chronic exacerbation, 2 stable chronic or 1 acute illness add add modifier 95 for video, (do not use for phone, instead use 24474-88) [facility] 11/[place]/2023 Estab. patient 20-29min; 1 stable chronic or 2 minor; add add modifier 95 for video, modifier 93 for phone [facility] 09/25/2024 Other specified chronic obstructive pulmonary diseaseType [...] 95 for video, modifier 93 for phone [facility] Estab. patient 20-29min; 1 stable chronic or 2 minor; add add modifier 95 for video, modifier 93 for phone [facility] 09/25/20[place] Estab. patient 20-29min; 1 stable chronic or 2 minor; add add modifier 95 for video, modifier 93 for phone [facility]/20[place] Estab. patient 20-29min; 1 stable chronic or 2 minor; add add modifier 95 for video, modifier 93 for phone [facility]/20[place] Estab. patient 20-29min; 1 stable chronic or 2 minor; add add modifier 95 for video, modifier 93 for phone [facility] 09/25/20[place] Estab. patient 20-29min; 1 stable chronic or 2 minor; add add modifier 95 for video, modifier 93 for phone [facility] 09/25/2024 Vital Signs Date of Collection Vitals [...] tive Time Current Smoking Status Never smoker 2024-12-05 2 Sex Female History of Procedures Procedures Service [...] (do not use for phone, instead use 82443-90) 61821 2022-07-20 No Data Available No Data Availa ble Estab. patient 30-39min; chronic exacerbation, 2 stable chronic or 1 acute illness add add modifier 95 for video, (do not use for phone, instead use 66406-11) 09339 2023-04-11 No Data Available No Data Availa [...] (do not use for phone, instead use 11892-71) 09206 2023-11-14 No Data Available No Data Availa [...] 95 for video, modifier 93 for phone 42385 2024-09-25 No Data Available No Data Availa [...] skin ulcers or complaints. Has appt with Inside Finisher on 10/09/2024.Glucose: 190 mg/dl at home. Continues [...] appt 09/07/2024. BP: 138/58 09/21/2024 Office visit: [address] [phone] BP at home today: 132/82, HR: 84, [...] questions or concerns. Discussed how to contact [facility] via phone or tablet. CB 24/7 phone number provided. 2024-09-25 Remember to keep all appointments with your PCP and specialists. Call CB 24/7 if you have questions or concerns. Discussed how to contact [facility] via phone or tablet. CB 24/7 phone [...] Lives at home with harinder martel. 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 2024-09-25 Follows up with PCP, last appt 09/07/2024, Oncologist, last appt 1 week ago, and Windows Migration Technician. Has appt with Inside [facility] on 10/09/2024.
--- OUTSIDE RECORDS SUMMARY | 2024-12-25 09:40 | XMS_ITS | Encounter Summary ---
Author Organization Handle [facility] Address [address] [place] [address] 7t [place] [address] Care Team Providers Care Reel Man Name Role Phone Name, Tristin COLLADO Primary Care Provider [phone] Cecelia Newsome PharmD Unavailable [phone] Reason for Visit * Reason Comments Med Refill Encounter Details Date Type Department Care Team (Late st Contact Info) Description 09/05/2022 Refill [facility] MED[facility]INE [address] [place] [address] Name, MD Tristin [address] [place] [address] Diabetic nephropathy with proteinuria (CMS/HCC) (Primary Dx) [...] Info) Description 12/28/2024 11:30 AM EDT Telemedicine [facility] [address] [place] [address] 09/27/2025 10:30 AM EST Medication Management [facility] [address] [place] [address] Ute Grissom, Lorene [address] [place] [address] documented as of this encounter Visit Diagnoses Diagnosis Diabetic nephropathy with proteinuria (CMS/HCC)- Primary documented in this encounter Additional Health Concerns Assessment Noted Time PHQ-9 Depression Total Score: 0 08/17/20 10:24 AM EST documented as of this encounter Care Teams Reel Man Relationship Specialty Start Date End Date Name, MD Tristin [address] [place] [phone] PCP - General Family Medicine 04/17/18 Cecelia Newsome PharmD [address] [place] [address] Pharmacist Internal Medicine 09/29/21 documented as of this encounter
--- OUTSIDE RECORDS SUMMARY | 2024-12-25 09:40 | XMS_ITS | Encounter Summary ---
Author Organization [employer] Address [address] [facility] 7t [place] [address] Care Team Providers Care Post Doctoral Fellow Name Role Phone Name, Tristin COLLADO Primary Care Provider [phone] Cecelia Newsome PharmD Unavailable [phone] Reason for Visit * Reason Comments Med Refill Encounter Details Date Type Department Care Team (Late st Contact Info) Description 11/15/[address] [facility] MED[facility]INE [address] [place] [address] Humera Abdi, ANP [address] [place] [address] Social History Tobacco Use Types Packs/Day Years [...] Info) Description 12/28/2024 11:30 AM EDT Telemedicine [address] [address] 09/27/2025 10:30 AM EST Medication Management [address] [address] Ute Grissom PharmD [address] [place] [address] documented as of this encounter Goals Goal [...] documented as of this encounter Care Teams Post Doctoral Fellow Relationship Specialty Start Date End Date Name, MD Tristin [address] [place] [address] PCP - General Family Medicine 04/17/18 Cecelia Newsome, Lorene [address] [place] [address] Pharmacist Internal Medicine 09/29/21 documented as of this encounter
--- OUTSIDE RECORDS SUMMARY | 2024-12-25 09:40 | XMS_ITS | Encounter Summary ---
Author Organization [facility] Address [address] [place] [address] 7t [place] [address] Care Team Providers Care Insurance Marketing Specialist Name Role Phone Name, Trsitin COLLADO Primary Care Provider [phone] Cecelia Newsome PharmD Unavailable [phone] Reason for Visit * Reason Comments Med Refill Encounter Details Date Type Department Care Team (Late st Contact Info) Description 01/19/2023 Refill [facility] [address] [place] [address] Name, MD Tristin [address] [place] [address] Social History Tobacco Use Types Packs/Day Years [...] Info) Description 12/28/2024 11:30 AM EDT Telemedicine [address] [phone] 09/27/2025 10:30 AM EST Medication Management [facility] [address] [place] [address] [place] [address] Ute Grissom PharmD [address] [place] [address] documented as of this encounter Goals Goal [...] documented as of this encounter Care Teams Insurance Marketing Specialist Relationship Specialty Start Date End Date Name, MD Tristin [address] [place] [address] PCP - General Family Medicine 04/17/18 Cecelia Newsome, PharmD [address] [place] [address] Pharmacist Internal Medicine 09/29/21 documented as of this encounter
[2024-12-25 12:08] LABS: Alanine Aminotransferase 20 U/L (0-31); Albumin Level 4.5 g/dL (3.5-5.0); Alkaline Phosphatase 73 U/L (39-117); Anion Gap 13 (12-20); Aspartate Amino Transferase 23 U/L (5-31); Bilirubin Total 0.3 mg/dL (0.0-1.0); Blood Urea Nitrogen 11 mg/dL (9-16); Calcium 9.7 mg/dL (8.4-10.2); Carbon Dioxide 29 mmol/L (22-29); Chloride 103 mmol/L (96-108); Cholesterol 178 mg/dL (<200); Estimated Glomerular Filt Rate > 60; Glucose Random 183 mg/dL (60-115); HDL Cholesterol 55 mg/dL (>40); LDL Cholesterol Calculated 92 mg/dL (<100); Sodium 141 mmol/L (135-145); Total Protein 7.9 g/dL (6.5-8.0); Triglycerides 155 mg/dL (<150)
== END 2024-12-25 09:06 | disposition home or self-care (01) ==
LOC: HO.HHCL 09:05
PROVIDERS: Visit Provider Internal Medicine Geriatric Medicine
DX: E11.9 Type 2 diabetes mellitus without complications (principal); I10 Essential (primary) hypertension
CPT/HCPCS: 36415; 80053; 80061

== ENCOUNTER 2025-05-17 13:55 | Outpatient (REF) | payer OTHER, SELFPAY ==
--- NOTE | ~2025-05-17 | MM_ITS ---
EXAMINATION: MM SCREENING DIGITAL BREAST TOMOSYNTHESIS, BILATERAL CLINICAL INFORMATION: Screening. Asymptomatic. Left breast cancer in 2017 status post lumpectomy. History of left breast cancer in 2006. COMPARISON: Mammography: Comparison is made with available priors TECHNIQUE: Digital breast mammography with tomosynthesis is performed in both the craniocaudal and mediolateral oblique views along with computer-aided detection (CAD). FINDINGS: There are scattered areas of fibroglandular density (ACR BI-RADS breast composition Category b). Left lumpectomy changes are stable at two sites. There are no significant masses, abnormal calcifications, or other abnormalities. MM/MM tomosynthesis screening BI IMPRESSION: No mammographic evidence of malignancy. ASSESSMENT: BI-RADS BI-RADS 2 - Benign Findings RECOMMENDATION: Routine annual mammography screening. 1 year F/U This examination should not preclude the clinical evaluation of a suspicious palpable abnormality. This patient's information was entered into a reminder system with a target due date for their next mammogram. Electronically signed by: Sandra Bernal DO 05/21/2025 02:55 PM EDT
--- OUTSIDE RECORDS SUMMARY | 2025-05-17 16:54 | XMS_ITS | Encounter Summary ---
Author Organization [employer] Address [address] [place] [address] 7t [place] [address] Care Team Providers Care Bellman Driver Name Role Phone Name, Tristin COLLADO Primary Care Provider [phone] Cecelia Newsome PharmD Unavailable [phone] Reason for Visit * Reason Comments Med Refill Encounter Details Date Type Department Care Team ([facility] st Contact Info) Description 05/17/2025 Refill [facility] MEDICINE [address] [place] [address] Name, MD Tristin [address] [place] [address] Social History Tobacco Use Types Packs/Day Years [...] Care Team (Late st Contact Info) Description 06/18/2025 11:15 AM EDT Office Visit [facility] MEDICINE [address] [place] [phone] Name, MD Tristin [address] [place] [address] 07/26/2025 10:00 AM EST Office Visit [facility] OPTOMETRY [address] [place] [address] TarkaSarahLeigh, OD [address] [place] [address] 09/27/2025 10:30 AM EST Medication Management [facility] [address] [place] [address] Ute Grissom PharmD [address] [place] [address] documented as of this encounter Goals Goal Patient Goal Type Associated Problems Recent Progress Patient-Stated? Author Blood Pressure < 140/90 Blood Pressure 173/66(2024 9:30 AM EDT) No Cecelia Newsome PharmMihai Record your blood pressure periodically, as directed Blood Pressure No Puia, Cecelia, PharmD Hemoglobin A1c < 8 Result Component 7.2( 5 9:32 AM EDT) No Cecelia Newsome, PharmD Record your blood sugar as directed Result Component No Cecelia Newsome PharmD documented as of this encounter Visit Diagnoses Not on filedocumented in this encounter Additional Health Concerns Assessment Noted Time PHQ-9 Depression Total Score: 0 11/28/19 24 10:14 AM EDT documented as of this encounter Care Teams Bellman Driver Relationship Specialty Start Date End Date Name, MD Tristin [address] [place] [address] PCP - General Family Medicine 04/17/18 Cecelia Newsome PharmD [address] [place] [address] Pharmacist Internal Medicine 09/29/21 documented as of this encounter
--- OUTSIDE RECORDS SUMMARY | 2025-05-17 16:54 | XMS_ITS | Encounter Summary ---
Author Organization [employer] Address [address] [place] [address] 7t [place] [address] Care Team Providers Care Manager Estate Name Role Phone Name, Tristin COLLADO Primary Care Provider Cecelia Newsome PharmD Unavailable [phone] Encounter Details Date Type Department Care Team (Late Contact Info) Description 09/13/2022 Orders Only [facility] PEDS [address] [place], [place] [phone] Minoo Benton LPN Social History Tobacco Use [...] Description 06/18/2025 11:15 AM EDT Office Visit [facility] MEDICINE [address] [place], [place] [phone] Name, MD Tristin [address] [place], [place] [phone] 07/26/2025 10:00 AM EST Office Visit [facility] OPTOMETRY [address] [place], [place] [phone] Garthcandy Leigh, OD [address] [place] [address] 09/27/2025 10:30 AM EST Medication Management [facility] MEDICINE [address] [place] [address] Ute Grissom, KarleyD [address] [place] [address] documented as of this encounter Visit Diagnoses Not on filedocumented in this encounter Additional Health Concerns Assessment Noted Time PHQ-9 Depression Total Score: 0 08/17/20 10:24 AM EST documented as of this encounter Care Teams Manager Estate Relationship Specialty Start Date End Date Name, MD Tristin [address] [place] [address] PCP - General Family Medicine 04/17/18 Cecelia Newsome PharmD [address] [place] [address] Pharmacist Internal Medicine 09/29/21 documented as of this encounter
--- OUTSIDE RECORDS SUMMARY | 2025-05-17 16:54 | XMS_ITS | Encounter Summary ---
Author Organization [employer] [facility] Address [address] [place] [address] 7t [place] [address] Care Team Providers Care Endoscopy Registered Nurse Name Role Phone Name, Tristin COLLADO Primary Care Provider [phone] Cecelia Newsome PharmD Unavailable [phone] Reason for Visit * Reason Comments Med Refill Encounter Details Date Type Department Care Team (Late st Contact Info) Description 09/05/2022 Refill [facility] MEDICINE [address] [place] [address] Name, MD Tristin [address] [place] [address] Diabetic nephropathy with proteinuria (CMS/HCC) (Primary Dx) [...] Department Care Team (Late Contact Info) Description 06/18/2025 11:15 AM EDT Office Visit [facility] MEDICINE [address] [place] [address] Name, MD Tristin [address] [place] [address] 07/26/2025 10:00 AM EST Office Visit [facility] OPTOMETRY [address] [place] [address] Garthcandy Leigh, OD [address] [place] [address] 09/27/2025 10:30 AM EST Medication Management [facility] [address] [place] [address] Ute Grissom PharmD [address] [place] [address] documented as of this encounter Visit Diagnoses Diagnosis Diabetic nephropathy with proteinuria ([facility])- Primary documented in this encounter Additional Health Concerns Assessment Noted Time PHQ-9 Depression Total Score: 0 08/17/20 22 10:24 AM EST documented as of this encounter Care Teams Endoscopy Registered Nurse Relationship Specialty Start Date End Date Name, MD Tristin [address] [place] [address] PCP - General Family Medicine 04/17/18 Cecelia Newsome PharmD [address] [place] [address] Pharmacist Internal Medicine 09/29/21 documented as of this encounter
--- OUTSIDE RECORDS SUMMARY | 2025-05-17 16:54 | XMS_ITS | Encounter Summary ---
Author Organization [employer] [facility] Address [address] [place] [address] [address]t [place] [address] Care Team Providers Care Mining Plant Operator Name Role Phone NameTristin MD Primary Care Provider [phone] Cecelia Newsome PharmD Unavailable [phone] Reason for Visit * Reason Comments Med Refill Encounter Details Date Type Department Care Team (Late Contact Info) Description 01/19/2023 Refill [facility] MED[facility]INE [address] [place] [address] NameTristin MD [address] [place] [address] Social History Tobacco Use Types Packs/Day Years [...] Description 06/18/2025 11:15 AM EDT Office Visit [facility] [address] [place] [address] [phone] Tristin Fregoso MD [address] [place] [address] 07/26/2025 10:00 AM EST Office Visit [facility] OPTOMETRY [address] [place] [address] Haydee Leigh, OD [address] [place] [address] 09/27/2025 10:30 AM EST Medication Management [facility] [address] [place] [address] Ute Grissom PharmD [address] [place] [address] documented as of this encounter Goals Goal [...] documented as of this encounter Care Teams Mining Plant Operator Relationship Specialty Start Date End Date Name, MD Tristin [address] [place] [address] PCP - General Family Medicine 04/17/18 Cecelia Newsome, PharmD [address] [place] [address] [phone] Pharmacist Internal Medicine 09/29/21 documented as of this encounter
--- OUTSIDE RECORDS SUMMARY | 2025-05-17 16:54 | XMS_ITS | Clinical Summary ---
Demographics Address [address] [place] [address] [address] [place] [address] Mobile Phone Home Phone Email Address Preferred Language es Marital Status Single Pentecostal Affiliation Unknown Race Other Race Ethnic Group Unknown Author Organization [facility] Address [address] [place] [address] [address] [place] [address] Care Team Providers Care Talent Specialist Name Role Phone Name, Tristin COLLADO Primary Care Provider [phone] Cecelia Newsome PharmD Unavailable [phone] Allergies Active Allergy Reactions Criticality Noted Date Comments Penicillin V 01/25/2012 Medications Lancets (OneTouch Delica Plus [id number]) miscIndications: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, without long-term current use of insulin ([facility]) TEST BLOOD SUGAR THREE TIMES DAILY 100 each 11 08/10/20 23 Active OneTouch Ultra test strip TEST BLOOD SUGAR 3 TIMES A DAY 100 strip 11 09/13/19 24 Active Blood Pressure Monitoring (Omron 3 Series BP Monitor) deviceIndications :Essential hypertension Use to check blood pressure once daily as directed 1 each 03/26/20 24 Active albuterol 108 (90 Base) MCG/ACT inhalerIndication s:Asthma, unspecified asthma severity, unspecified whether complicated, unspecified whether persistent INHALE 2 PUFFS BY MOUTH EVERY 4 TO 6 HOURS NEEDED 8.5 g 3 05/18/20 24 Active ibuprofen 600 MG tablet Take 1 tablet (600 mg) by mouth every 6 (six) hours if needed for mild pain for up to 20 doses. 20 tablet 05/28/20 24 Active albuterol (2.5 MG/3ML) 0.083% nebulizer solutionIndicatio ns:Unspecified asthma, uncomplicated INHALE 1 AMPULE USING A [...] 12/04/19 25 Active atorvastatin (Lipitor) 40 MG tabletIndications :Type 2 diabetes mellitus without complication, without long-term current use of insulin (CMS/HCC) Take 1 tablet (40 mg) by mouth Once per day. 30 tablet 12/21/19 25 026 Active losartan-hydroCHL OROthiazide (Hyzaar) 100-12.5 MG tabletIndications :Essential hypertension Take 1 tablet by mouth Once per day. 30 tablet 12/21/19 25 026 Active ezetimibe (Zetia) 10 MG tablet Take 1 tablet (10 mg) by mouth Once per day. 30 tablet 12/26/19 25 026 Active Calcium Carb-Cholecalcife rol 600-10 MG-MCG tablet TAKE 1 TABLET BY MOUTH TWICE DAILY IN THE MORNING AND IN THE EVENING 180 tablet 3 01/01/20 25 Active Alcohol Swabs (Alcohol Prep) 70 % pads USE DIRECTED FOUR TIMES DAILY 100 each 01/30/20 25 Active pioglitazone (Actos) 15 MG tablet TAKE 1 TABLET BY MOUTH EVERY MORNING 30 tablet 02/01/20 25 Active Fluticasone-Salme terol 100-50 MCG/ACT aerosol powder INHALE 1 PUFF BY MOUTH TWICE DAILY IN THE MORNING AND IN THE EVENING RINSE MOUTH AFTER USING. 60 each 02/01/20 25 Active loratadine (Claritin) 10 MG tablet TAKE 1 TABLET BY MOUTH EVERY DAY 90 tablet 3 02/01/20 25 Active metFORMIN (Glucophage) 500 MG tabletIndications :Diabetes mellitus without complication (CMS/HCC) TAKE 1 TABLET BY MOUTH TWICE DAILY IN THE MORNING AND IN THE EVENING WITH FOOD 60 tablet 5 03/25/20 25 Active amLODIPine (Norvasc) 5 MG tabletIndications :Essential hypertension TAKE 1 TABLET BY MOUTH EVERY MORNING 30 tablet 04/22/20 25 Active glipiZIDE XL (Glucotrol XL) 10 MG 24 hr tabletIndications :Type 2 diabetes mellitus without complication, without long-term current use of insulin (CMS/HCC) TAKE 1 TABLET BY MOUTH EVERY MORNING DO NOT BREAK, CRUSH, DISSOLVE OR CHEW 30 tablet 04/22/20 25 Active glipiZIDE XL (Glucotrol XL) 5 MG 24 hr tabletIndications :Type 2 diabetes mellitus without complication, without long-term current use of insulin ([facility]) TAKE 1 TABLET BY MOUTH EVERY MORNING DO NOT BREAK, CRUSH, DISSOLVE OR CHEW 30 tablet 04/22/20 25 Active Jardiance 25 MGIndications:Jenise betes mellitus without complication ([facility]) TAKE 1 TABLET BY MOUTH EVERY MORNING 30 tablet 04/22/20 25 Active Tradjenta 5 MG tabletIndications :Type 2 diabetes mellitus without complication, without long-term current use of insulin ([facility]) TAKE 1 TABLET BY MOUTH EVERY MORNING 30 tablet 04/22/20 25 Active alendronate (Fosamax) 70 MG tablet take 1 tablet by mouth once a week with 6 to 8 oz of water 30 min before first food of day. do not lie down for 30 minutes 4 tablet 1 05/17/20 25 Active amLODIPine (Norvasc) 5 MG tabletIndications :Essential hypertension Take 1 tablet (5 mg) by mouth Once per day. 30 tablet 05/21/20 025 Discontinued glipiZIDE XL (Glucotrol XL) 10 MG 24 hr tabletIndications :Type 2 diabetes mellitus without complication, without long-term current use of insulin ([facility]) TAKE 1 TABLET BY MOUTH EVERY MORNING DO NOT BREAK, CRUSH, DISSOLVE OR CHEW 30 tablet 05/21/20 025 Discontinued glipiZIDE XL (Glucotrol XL) 5 MG 24 hr tabletIndications :Type 2 diabetes mellitus without complication, without long-term current use of insulin ([facility]) TAKE 1 TABLET BY MOUTH EVERY MORNING (WITH 10 MG TABLET). DO NOT BREAK, CRUSH, DISSOLVE OR CHEW. 30 tablet 05/21/20 025 Discontinued empagliflozin (Jardiance) 25 MGIndications:Jenise betes mellitus without complication ([facility]) Take 1 tablet (25 mg) by mouth in the morning. 30 tablet 05/21/20 025 Discontinued linaGLIPtin (Tradjenta) 5 MG tabletIndications :Type 2 diabetes mellitus without complication, without long-term current use of insulin ([facility]) Take 1 tablet (5 mg) by mouth Once per day. 30 tablet 11 05/21/20 24 025 Discontinued alendronate (Fosamax) 70 MG tablet take 1 tablet by mouth once a week with 6 to 8 oz of water 30 min before first food of day. do not lie down for 30 minutes 4 tablet 1 03/22/20 25 025 Discontinued Active Problems Problem Noted Date Diagnosed Date Ill-fitting dentures 10/29/2024 Chronic pain of right ankle 07/18/2024 Assessment & Plan (07/18/2024 12:42 PM EST): Patient will continue with tylenol prn for pain Patient will start ibuprofen 600 mg TID prn for pain Patient will continue with alternating cold/heat therapy Patient will take terbinafine for onychomycosis, considered consultation with mimeograph operator however am aware of the limitations surrounding [...] Encounters Date Type Department Care Team Description 05/17/2025 Refill [facility] [address] [place] [address] Name, MD Tristin 04/21/2025 Refill [facility] [address] [place] [address] Tristin Fregoso MD Essential hypertension; Type 2 diabetes mellitus without complication, without long-term current use of insulin ([facility]); Diabetes mellitus without complication ([facility]) 04/10/2025 Telephone [facility] [address] [place] [address] Sierra Finch MA may recalls 03/24/2025 Refill [facility] [address] [place] [address] Tristin Fregoso MD Diabetes mellitus without complication ([facility]) 03/22/2025 Refill [facility] [address] [place] [address] Tristin Fregoso MD 02/28/2025 Telephone [facility] [address] [place] [address] Tristin Fregoso MD Returning pt TC from Last 3 Months Immunizations Immunization Administration Dates Next Due Influenza High-dose Quadrivalent [...] 78 12/20/2024 9:30 AM EDT Temperature 36.1 C (97 F) 12/20/2024 9:30 AM EDT Respiratory Rate 12 [...] Description 06/18/2025 11:15 AM EDT Office Visit [facility] [address] [place] [address] Name, MD Tristin [address] [place] [address] 07/26/2025 10:00 AM EST Office Visit [facility] [address] [place] [address] Leigh Hubbard, OD [address] [place] [address] 09/27/2025 10:30 AM EST Medication Management [facility] [address] [place] [address] Ute Grissom, PharmD [address] [place] [address] Health Maintenance Due Date Last Done Comments Dental Prophylaxis 1945 Dental X-Ray: Full Mouth 1945 Alcohol/Substance Use Screening 1958 Hepatitis A Vaccines (1 of 2 - Risk 2-dose series) 1965 Zoster Vaccines (1 of 2) 1996 Hepatitis B Vaccines (1 of 3 - Risk 3-dose series) 2006 RSV Patients and Patients Aged 60 years or older (1 - 1-dose 75+ series) 2021 Pneumococcal Vaccine: 50+ Years (3 of 3 - PCV20 or PCV21) 10/21/2022 10/21/2017, 05/28/2010 Dental Oral Exam 06/21/2024 12/20/2023 DTaP/Tdap/Td Vaccines (3 - Td or Tdap) 09/04/2024 09/04/2014, 02/16/2013 Depression Screening 11/27/2024 11/28/2023, 11/28/19 24 Dental X-Ray: Bitewings 12/20/2024 12/20/2023 Diabetes: Hemoglobin A1C 03/21/2025 025, 09/07/2024, 05/21/2024, Additional history exists COVID-19 Vaccine ( - season) 2025 Influenza Vaccine (#1) 2025 , 10/21/2017, 07/26/2014, Additional history exists Eye Exam 05/18/2025 05/18/2024, 05/06, 05/18/2024, Additional history exists Diabetes: Foot Exam 09/07/2025 09/07/2024, 09/07/2024, 09/07/2024, Additional history exists SDOH Screening 12/11/2025 12/11/2024 Tobacco Screening 12/20/2025 12/20/2024 Lipid Panel 12/25/2025 12/25/2024, 09/06, 03/15/2023, Additional history exists Hepatitis C Screening Completed 02/23/2024 HIB Vaccines Aged Out No longer eligi ble based on patient's age to complete this topic HPV Vaccines Aged Out No longer eligi ble based on patient's age to complete this topic IPV Vaccines Aged Out No longer eligi ble based on patient's age to complete this topic Meningococcal B Vaccine Aged Out No l onger eligible based on patient's age to complete [...] periodically, as directed Blood Pressure No Cecelia Newsome PharmMihai Hemoglobin A1c < 8 Result Component 7.2( 9:32 AM EDT) No Cecelia Newsome PharmMihai Record your blood sugar as directed Result Component No Cecelia Newsome PharmD Procedures Procedure Name Priority Date/Time Associated Diagnosis Comments LIPID PANEL, STANDARD Routine 12/25/2024 9:07 AM EDT Type 2 diabetes mellitus without complication, without long-term current use of insulin (CMS/HCC) Essential hypertension POCT GLYCATED HEMOGLOBIN, TOTAL Routine 12/20/2024 9:32 AM EDT Type 2 diabetes mellitus without complication, without long-term current use of insulin (CMS/HCC) HEPATITIS C AB W/REFL TO HCV RNA, QN, PCR Routine 02/23/2024 11:57 AM EDT Need for hepatitis C screening test BITEWINGS - 4 RADIOGRAPHIC IMAGES Routine 12/20/2023 1:00 PM EDT Missing teeth, acquired PERIODIC ORAL EVALUATION - ESTABLISHED PATIENT Routine 12/20/2023 1:00 PM EDT DIABETES EYE EXAM Routine 01/21/2022 from Last 3 Months or Most Recently Relevant to Health Maintenance Results * (ABNORMAL) Lipid Panel, Standard (12/25/2024 9:07 AM EDT) Triglycerides 155(H) <150 mg/dL [facility] Comment:Desirable Triglyceri de: less than 150 mg/dLBorderline High Triglyceride 150-199 mg/dLHigh Triglyceride: 200-499 mg/dLVery High Triglyceride: greater than or equal to 5OO mg/dL Cholesterol 178 <200 mg/dL [facility] Comment:Desirable Cholestero l: less than 200 mg/dLBorderline High Cholesterol: 200-239 mg/dLHigh Cholesterol: greater than 239 mg/dL LDL Cholesterol Calculated 92 <100 mg/dL [facility] Comment:Desirable LDL: less than 100 mg/dLNear Optimal/Above Optimal LDL: 110- 129 mg/dLBorderline High LDL: 130-159 mg/dLHigh LDL: 160-189 mg/dLVery High LDL: greater than or equal to 190 mg/dL HDL Cholesterol 55 >40 mg/dL [facility] Comment:Desirable HDL: great er than 40 mg/dL Note: This HDL assay may give artificially low results in patients with liver disease. Blood Venous blood specimen / Unknown 12/25/2024 9:07 AM EDT 12/25/2024 11:16 AM EDT us Tristin Name LAB BLOOD ORDERABLES Final Resul t [facility] [address] [place] [phone] * (ABNORMAL) POCT HGB A1C (12/20/2024 9:32 AM EDT) Hemoglobin A1C 7.2(A) 4.0 - 6.0 % QC Media Lot # [id number] Lot# Expiration Date Blood 12/20/2024 9:32 AM EDT us Tristin Fregoso MD POINT OF CARE TEST ENTER/EDIT OR DERABLES Final Result * Hepatitis C Antibody with Reflex to HCV, RNA, Quantitative, Real-Time PCR (02/23/2024 11:57 AM EDT) Hepatitis C Antibody Nonreactive Nonreactive [facility] Comment:Antibodies to HCV no t detected; does not exclude early acuteHCV infection. Blood Venous blood specimen / Unknown 02/23/2024 11:57 AM EDT 02/23/2024 1:01 PM EDT us Tristin Fregoso MD LAB BLOOD ORDERABLES Final Resul t Performing Organization Address City/State/[facility] Co de Phone Number [facility] [address] [place] [phone] * Diabetes Eye Exam (01/21/2022) Eye Exam Normal Normal Result [facility] us Tristin Fregoso MD HEALTH MAINTENANCE Final Result from Last 3 Months or Most Recently Relevant to Health Maintenance Insurance * Guarantor: Gosia Collier Account Type Relation to Patient Date of Phone Billing Address Personal/Family Self 1945 [address] [place] [address] [facility] Care Teams Talent Specialist Relationship Specialty Start Date End Date Name, MD Tristin [address] [place] [phone] PCP - General Family Medicine 04/17/18 Cecelia Newsome PharmD [address] [place] [address] Pharmacist Internal Medicine 09/29/21
--- OUTSIDE RECORDS SUMMARY | 2025-05-17 16:54 | XMS_ITS | Encounter Summary ---
Author Organization [facility] Address [address] [place] [address] [address] [place] [address] Care Team Providers Care Bake Room Worker Name Role Phone Name, Tristin COLLADO Primary Care Provider [phone] Cecelia Newsome PharmD Unavailable [phone] Reason for Visit * Reason Comments Med Refill Encounter Details Date Type Department Care Team ([facility] st Contact Info) Description 08/16/2023 Refill [facility] [address] [place] [address] Cecelia Newsome, PharmD [address] [place] [address] Type 2 diabetes mellitus without complication, without long-term current use of insulin ([facility]) Social History Tobacco Use Types Packs/Day Years [...] Description 06/18/2025 11:15 AM EDT Office Visit [facility] [address] [place] [phone] Name, MD Tristin [address] [place] [phone] 07/26/2025 10:00 AM EST Office Visit [facility] [address] [place] [address] Leigh Hubbard, OD [address] [place] [address] 09/27/2025 10:30 AM EST Medication Management [facility] [address] [place] [phone] Ute Grissom PharmD [address] [place] [phone] documented as of this encounter Goals Goal Patient Goal Type Associated Problems Recent Progress Patient-Stated? Author Blood Pressure < 140/90 Blood Pressure 173/66(2024 9:30 AM EDT) No Cecelia Newsome PharmD Hemoglobin A1c < 8 Result Component 7.2( 9:32 AM EDT) No Cecelia Newsome PharmD documented as of this encounter Visit Diagnoses Diagnosis Type 2 diabetes mellitus without complication, without long-term current use of insulin ([facility]) documented in this encounter Additional Health Concerns Assessment Noted Time PHQ-9 Depression Total Score: 0 08/17/20 22 10:24 AM EST documented as of this encounter Care Teams Bake Room Worker Relationship Specialty Start Date End Date Name, MD Tristin [address] [place] [address] PCP - General Family Medicine 04/17/18 Cecelia Newsome PharmD [address] [place] [address] Pharmacist Internal Medicine 09/29/21 documented as of this encounter
--- OUTSIDE RECORDS SUMMARY | 2025-05-17 16:54 | XMS_ITS | Encounter Summary ---
Author Organization [facility] Address [address] [place] [address] [address] [place] [address] Care Team Providers Care Chamber Worker Name Role Phone NameTristin MD Primary Care Provider [phone] Cecelia Newsome PharmD Unavailable [phone] Reason for Visit * Reason Comments Med Refill Encounter Details Date Type Department Care Team (Late Contact Info) Description 01/26/2023 Refill [facility] [address] [place] [phone] NameTristin MD [address] [place] [phone] Social History Tobacco Use Types Packs/Day Years [...] Description 06/18/2025 11:15 AM EDT Office Visit [facility] [address] [place] [address] [phone] Tristin Fregoso MD [address] [place] [phone] 07/26/2025 10:00 AM EST Office Visit [facility] [address] [place] [address] Haydee Leigh, OD [address] [place] [address] 09/27/2025 10:30 AM EST Medication Management [facility] [address] [place] [address] Ute Grissom PharmD [address] [place] [address] documented as of this encounter Goals Goal [...] documented as of this encounter Care Teams Chamber Worker Relationship Specialty Start Date End Date Name, MD Tristin [address] [place] [phone] PCP - General Family Medicine 04/17/18 Cecelia Newsome, PharmD [address] [place] [address] [phone] Pharmacist Internal Medicine 09/29/21 documented as of this encounter
--- OUTSIDE RECORDS SUMMARY | 2025-05-17 16:54 | XMS_ITS ---
Author Name Hercules SUPERVISOR [employer]AME [employer],BRUISE TRIMMER,FN P,GIS PROGRAMMER, Idalia Address [address] [place] [address] Phone [phone] Organization [facility] [facility] Care Team Providers Care Digital Associate Media Director Name Role Phone Idalia Hercules Unavailable [phone] NameTristin Unavailable [phone] Reason for Referral Not Available Allergies, adverse [...] 2021-12-28 No Data Available OneTouch Delica Plus [id number] Miscellaneous TEST BLOOD SUGAR THREE TIMES DAILY [...] 10 mg Tab TAKE 1 TABLET BY [facility] AT BEDTIME (for cholesterol) 2022-02-26 2023-04-11 Acetaminophen [...] 2.5 mg Tab TAKE 1 TABLET BY [facility] EVERY DAY 2021-12-21 2024-09-25 Medbox Status USE DIRECTED 2022-07-19 No Data Lizeth ilable Albuterol Sulfate (2.5 mg/3ML) 0.083% Nebulization Solution USE 1 AMPULE USING A NEBULIZER EVERY 4 HOURS DIRECTED 2022-11-05 No Data Available Ibuprofen 600 mg Tab TAKE 1 TABLET BY [facility] EVERY 8 HOURS NEEDED FOR MILD PAIN 2022-11-09 No Data Available Miro Ultra 2 w/Device Kit USE DIR ECTED [...] List Problem Status Onset Date Resolved Date Synopsis Other problems related to medical facilities and other health care Active 2023-11-14 N/A CONTINGENCY PLANMember to call for the following symptoms: Increased tiredness/ Wheezing/ Breathing loudly/ Increased coughPlanned intervention: Increase use of albuterol inhaler to q2h PRN cough, breathlessness/ Azithromycin 500mg on day 1 then 250 mg on day 2-5/ Flonase 2 sprays daily.Assess current symptoms and treat accordingly.Allergic to: Penicillin.Schedule f/u with primary VARUN. GERD (gastroesophageal reflu x disease) Active 2022-07-20 N/A 09/25/2024:Follow s up with PCP.Taking: Omeprazole QDDenies any acute complaint.Continue treatment as prescribed, follow up as instructed.Elevate head of bed. Avoid triggers. Contact CB 28/03 as needed. Hx of breast cancerHistory o f lumpectomy of both breasts Active 2022-07-20 N/A 2024:Follows up with Oncologist once a year for surveillance, last appt 1 week ago. Completed taking Letrozole. Denies any new findings or concerns. 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 Continue to follow up with PCP.Denies any acute complaints. OsteoporosisOsteoarthritis Active 2022-07-20 N/A 09/25/2024:Follows up with PCP. Continues taking: Calcium/ Vitamin D supplementation.Alendron ate discontinued by PCP. Reports chronic knee pain bilaterally and hands/joint pain.Takes Tylenol as needed. Type 2 diabetes mellitus wit h hyperlipidemia Active 2022-07-20 N/A 09/25/2024:Follow s up with PCP. Glucose: 165 mg/dl at [...] crEstimated Glomerular Filt Rate >60Hemoglobin A1C 6.8 (A) Hypertension Active 2022-07-20 N/A 09/25/2024:Fo llows up with PCP, last appt 09/07/2024. BP: 138/58 09/21/2024 Office visit: [facility] [address] [place] [address] [place] at home today: 132/82, HR: 84, reported by patient.Continues taking: Amlodipine, Losartan, Metoprolol.Denies any acute complaint.Continue treatment as prescribed, follow up as instructed.Monitor BP regularly at home.Follow low Sodium diet. Contact CB 24/7 as needed. Type 2 diabetes mellitus wit h diabetic peripheral angiopathy without gangrene Active 2022-07-21 N/A 09/25/2024:Follo ws up with PCP, last appt 09/07/2024:Denies any skin ulcers or complaints. Has appt with [facility] [employer] [facility] on 10/09/2024.Glucose: 190 mg/dl at home. Continues taking DM: Glipizide, Jardiance, Metformin, Pioglitazone, Tradjenta.HL: Atorvastatin. Advised to follow low fat, low carb, heart healthy diet.Continue treatment as prescribed. Follow up with PCP as scheduled.Contact CB 24/7 as needed. Atrial fibrillation Active 2024-10-10 N/A MD moody rtal notes member does have a diagnosis that includes atrial fibrillation 07/30/22 (Gino Cárdenas MD) summarization of episode notecontinues metoprolol. losartan, amlodipineencourage physical activity as toleratedhealthy lifestyle changes Encounters Encounters Type Facility Date of Service Diagnosis/Co mplaint Medication List Documented (1159F) [facility] [place] Medication List Documented (1159F) [facility] [place] Medication List Documented (1159F) [facility] [place] Medication List Documented (1159F) [facility] [place] Medication List Documented (1159F) [facility] [place] Medication List Documented (1159F) [facility] [place] Medication List Documented (1159F) [facility] [place] Medication List Documented (1159F) [facility] [place] Essential (primary) hypertensionHyperlipidemia, unspecifiedGastro-esophageal reflux disease without esophagitisAge-related osteoporosis without current pathological fracturePersonal history of malignant neoplasm of breastChronic obstructive pulmonary disease, unspecifiedType 2 diabetes w diabetic peripheral angiopath w/o gangrene Estab. patient 30-39min; chronic exacerbation, 2 stable chronic or 1 acute illness add add modifier 95 for video, (do not use for phone, instead use 83716-22) [facility]2023 Type 2 diabetes w diabetic peripheral angiopath w/o gangreneChronic obstructive pulmonary disease, unspecifiedEssential (primary) hypertensionHyperlipidemia, unspecifiedGastro-esophageal reflux disease without esophagitisAge-related osteoporosis without current pathological fractureUnspecified asthma, uncomplicatedPersonal history of malignant neoplasm of breast Estab. patient 30-39min; chronic exacerbation, 2 stable chronic or 1 acute illness add add modifier 95 for video, (do not use for phone, instead use 28580-49) [facility] Estab. patient 30-39min; chronic exacerbation, 2 stable chronic or 1 acute illness add add modifier 95 for video, (do not use for phone, instead use 36078-02) [facility] Estab. patient 30-39min; chronic exacerbation, 2 stable chronic or 1 acute illness add add modifier 95 for video, (do not use for phone, instead use 13020-27) [facility] Estab. patient 30-39min; chronic exacerbation, 2 stable chronic or 1 acute illness add add modifier 95 for video, (do not use for phone, instead use 18000-68) [facility] Estab. patient 30-39min; chronic exacerbation, 2 stable chronic or 1 acute illness add add modifier 95 for video, (do not use for phone, instead use 04338-44) [facility] Estab. patient 30-39min; chronic exacerbation, 2 stable chronic or 1 acute illness add add modifier 95 for video, (do not use for phone, instead use 64732-59) [facility] Estab. patient 30-39min; chronic exacerbation, 2 stable chronic or 1 acute illness add add modifier 95 for video, (do not use for phone, instead use 66319-87) [facility] Estab. patient 30-39min; chronic exacerbation, 2 stable chronic or 1 acute illness add add modifier 95 for video, (do not use for phone, instead use 28278-87) [facility] Estab. patient 30-39min; chronic exacerbation, 2 stable chronic or 1 acute illness add add modifier 95 for video, (do not use for phone, instead use 80341-14) [facility] Estab. patient 30-39min; chronic exacerbation, 2 stable chronic or 1 acute illness add add modifier 95 for video, (do not use for phone, instead use 93818-61) [facility]/2023 Type 2 diabetes w diabetic peripheral [...] (do not use for phone, instead use 71654-05) [facility] Estab. patient 30-39min; chronic exacerbation, 2 stable chronic or 1 acute illness add add modifier 95 for video, (do not use for phone, instead use 38256-82) [facility] Estab. patient 30-39min; chronic exacerbation, 2 stable chronic or 1 acute illness add add modifier 95 for video, (do not use for phone, instead use 32559-11) [facility] Estab. patient 30-39min; chronic exacerbation, 2 stable chronic or 1 acute illness add add modifier 95 for video, (do not use for phone, instead use 68444-24) [facility] Estab. patient 30-39min; chronic exacerbation, 2 stable chronic or 1 acute illness add add modifier 95 for video, (do not use for phone, instead use 66349-39) [facility] Estab. patient 30-39min; chronic exacerbation, 2 stable chronic or 1 acute illness add add modifier 95 for video, (do not use for phone, instead use 56864-71) [facility] Estab. patient 30-39min; chronic exacerbation, 2 stable chronic or 1 acute illness add add modifier 95 for video, (do not use for phone, instead use 26059-78) [facility]/20[place] Estab. patient 30-39min; chronic exacerbation, 2 stable chronic or 1 acute illness add add modifier 95 for video, (do not use for phone, instead use 72569-94) [facility] Estab. patient 20-29min; 1 stable chronic or 2 minor; add add modifier 95 for video, modifier 93 for phone [facility]/2024 Other specified chronic obstructive pulmonary diseaseType [...] 95 for video, modifier 93 for phone [facility] [place] Estab. patient 20-29min; 1 stable chronic or 2 minor; add add modifier 95 for video, modifier 93 for phone [facility] Estab. patient 20-29min; 1 stable chronic or 2 minor; add add modifier 95 for video, modifier 93 for phone [facility]/20[place] Estab. patient 20-29min; 1 stable chronic or 2 minor; add add modifier 95 for video, modifier 93 for phone [facility]/25/20[place] Estab. patient 20-29min; 1 stable chronic or 2 minor; add add modifier 95 for video, modifier 93 for phone [facility] [place] 09/25/20[place] Estab. patient 20-29min; 1 stable chronic or 2 minor; add add modifier 95 for video, modifier 93 for phone [facility] [place] 09/25/2024 Vital Signs Date of Collection Vitals [...] tive Time Current Smoking Status Never smoker 2025-05-06 2 Sex Female History of Procedures Procedures [...] (do not use for phone, instead use 53112-88) [id number] 2022-07-20 No Data Available No Data Availa ble Estab. patient 30-39min; chronic exacerbation, 2 stable chronic or 1 acute illness add add modifier 95 for video, (do not use for phone, instead use 75142-73) [id number] 2023-04-11 No Data Available No Data Availa ble Advance care planning discussed and documented in the medical record beneficiary/patient did not wish to or was [...] (do not use for phone, instead use 18526-73) [id number] 2023-11-14 No Data Available No Data Availa [...] ble Advance care planning discussed and documented advance care plan or surrogate decision-maker was [...] 95 for video, modifier 93 for phone [id number] 2024-09-25 No Data Available No Data Availa [...] discussed and documented in the medical record beneficiary/patient did not wish to or was [...] surgery many years ago. Recent mammogram in February2Patient is on letrozole daily for recurrence preventionadvised [...] discussed and documented in the medical record beneficiary/patient did not wish to or was unable to provide an advance care plan or name a surrogate decision-maker. (1124F)Pain Assessment - NO pain documented (1126F)Continue to see PCP. Follow-up with [facility] as needed for any acute or disease education needs that may arise.Glipizide, Jardiance, Metformin, PioglitazoneTaking statin A1C 6.4% 3A1C 8.4% 03/14/2023 (Outside Care)GFR >60 03/14/2023 (Outside Care) *Suggest stopping sulfonylurea (glipizide) or switching to an alternative class with a more favorable risk b enefit ratio, such as a lower risk of [...] surgery many years ago. Recent mammogram in February2Patient is on letrozole daily for recurrence preventionadvised [...] discussed and documented in the medical record beneficiary/patient did not wish to or was [...] an alternative class with a more favorable risk b enefit ratio, such as a lower risk of hypoglycemia. Note to PCP11/14/2023:Follows up with PCP, next appt 11/28/2023. Denies any skin ulcers or complaints. Glucose: 165 mg/dl at home. Continues taking DM: Glipizide, Jardiance, Metformin, PioglitazoneHL: Atorvastatin. Advised to follow low fat, low carb, heart healthy diet.Continue treatment as prescribed. Follow up with PCP as scheduled.Contact CB 24/7 as needed.Advair, Albuterol via Nebulizer, FluticasoneAvoid allergens [...] head of bed. Avoid triggers. Contact CB 28/03 as needed.stable, on alendronate and calcium supplementation [...] discussed and documented in the medical record beneficiary/patient did not wish to or was unable to provide an advance care plan or name a surrogate decision-maker. (1124F)Continue to see PCP. Follow-up with [facility] as needed for any acute or disease education needs that may arise.09/25/2024:Follows up with PCP, last appt 09/07/2024:Denies any skin ulcers or complaints. Has appt with [facility] [employer] [facility] on 10/09/2024.Glucose: 190 mg/dl at home. Continues taking DM: Glipizide, Jardiance, Metformin, Pioglitazone, Tradjenta.HL: Atorvastatin. Advised to follow low fat, low carb, heart healthy diet.Continue treatment as prescribed. Follow up with PCP as scheduled.Contact CB 24/7 as needed.09/25/2024:Advair, Albuterol via Nebulizer, Fluticasone as needed.Avoid allergens and triggers. Continue to follow up with PCP.Denies any acute complaints.09/25/2024:Follows up with PCP, last appt 09/07/2024. BP: 138/58 09/21/2024 Office visit: [facility] [address] [place] [address] [place] at home today: 132/82, HR: 84, reported [...] treat accordingly.Allergic to: Penicillin.Schedule f/u with primary VARUN.MD portal notes member does have a diagnosis [...] with your PCP and specialists. Call CB 24/Dobango if you have questions or concerns. Discussed how to contact [facility] via phone or tablet. 24/7 phone number provided. 2024-09-25 Remember to keep all appointments with your PCP and specialists. Call CB 24/7 if you have questions or concerns. Discussed how to contact [facility] via phone or tablet. 24/7 phone number provided. Health Concerns Date [...] Reviewed 2024-09-25 Lives at home with harinder kateynorma. 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 Has appt with [facility] [employer] [facility] on 10/09/2024.
--- OUTSIDE RECORDS SUMMARY | 2025-05-17 16:54 | XMS_ITS | Encounter Summary ---
Author Organization [employer] Address [address] [place] [address] [address] [place] [address] Care Team Providers Care Private Branch Exchange Repairer Name Role Phone Name, Tristin COLLADO Primary Care Provider [phone] Cecelia Newsome PharmD Unavailable [phone] Reason for Visit * Reason Comments Med Refill Encounter Details Date Type Department Care Team ([facility] st Contact Info) Description 11/15/2024 Refill [facility] MEDICINE [address] [place] [address] Humera Abdi, ANP [address] [place] [address] Social History Tobacco Use Types Packs/Day Years [...] Description 06/18/2025 11:15 AM EDT Office Visit [facility] MEDICINE [address] [place] [address] Name, MD Tristin [address] [place] [address] 07/26/2025 10:00 AM EST Office Visit [facility] OPTOMETRY [address] [place] [phone] Leigh Hubbard, OD [address] [place] [address] 09/27/2025 10:30 AM EST Medication Management [facility] MEDICINE [address] [place] [address] Ute Grissom PharmD [address] [place] [address] documented as of this encounter Goals Goal Patient Goal Type Associated Problems Recent Progress Patient-Stated? Author Blood Pressure < 140/90 Blood Pressure 173/66(2024 9:30 AM EDT) No LeydaiaJosuéCecelia, PharmD Record your blood pressure periodically, as directed Blood Pressure No PuiaJosuéCecelia, PharmD Hemoglobin A1c < 8 Result Component 7.2( 9:32 AM EDT) No Puia, Cecelia, PharmD Record your blood sugar as directed Result Component No Cecelia Newsome PharmD documented as of this encounter Visit Diagnoses Not on filedocumented in this encounter Additional Health Concerns Assessment Noted Time PHQ-9 Depression Total Score: 0 11/28/19 24 10:14 AM EDT documented as of this encounter Care Teams Private Branch Exchange Repairer Relationship Specialty Start Date End Date Name, MD Tristin [address] [place] [address] PCP - General Family Medicine 04/17/18 Cecelia Newsome PharmD [address] [place] [address] Pharmacist Internal Medicine 09/29/21 documented as of this encounter
== END 2025-05-17 13:56 | disposition home or self-care (01) ==
LOC: HO.MAMMO 13:55
PROVIDERS: PCP Internal Medicine Geriatric Medicine; Visit Provider Internal Medicine Geriatric Medicine
DX: Z12.31 Encounter for screening mammogram for malignant neoplasm of breast (principal)
CPT/HCPCS: 77063; 77067

== ENCOUNTER → 2025-05-17 14:00 | Outpatient (BNV) | payer OTHER, SELFPAY | PROVIDERS: PCP Internal Medicine Geriatric Medicine; Visit Provider Internal Medicine | DX: Z12.31 Encounter for screening mammogram for malignant neoplasm of breast (principal) | CPT/HCPCS: 77063; 77067 ==